=== PATIENT | female | born 1950 | race Caucasian/White ===

== ENCOUNTER 2023-10-18 11:48 | Outpatient (REF) | payer MEDICARE, SELFPAY ==
[2023-10-18 14:45] LABS: Folate > 20.0 ng/mL (> or = 4.0); Vitamin B12 723 pg/mL (200-900)
[2023-10-19 13:29] LABS: Lyme Abs Screen <0.90 index
== END 2023-10-18 11:49 | disposition home or self-care (01) ==
LOC: HO.LAB 11:48
PROVIDERS: PCP Internal Medicine; Visit Provider Psychiatry & Neurology Neurology
DX: G93.40 Encephalopathy, unspecified (principal)
CPT/HCPCS: 36415; 82607; 82746; 86617; 86618

== ENCOUNTER 2023-11-12 10:17 | Outpatient (REF) | payer MEDICARE, SELFPAY ==
--- NOTE | ~2023-11-12 | MR_ITS ---
EXAMINATION: MR BRAIN WITHOUT CONTRAST CLINICAL INFORMATION: Encephalopathy, memory loss COMPARISON: None available. TECHNIQUE: MRI of the brain was obtained using routine sequences without contrast. FINDINGS: There is no reduced diffusion to suggest acute infarct. Small chronic lacunar infarctions in the left cerebellar hemisphere and right basal ganglia. Susceptibility weighted sequence is within normal limits. No mass effect, extra-axial collection, midline shift, or other herniation. Generalized cerebral volume loss with a mild temporoparietal predominance. Scattered periventricular and subcortical T2/FLAIR hyperintense foci are nonspecific but likely represent chronic microvascular ischemic change. Intracranial flow voids are preserved. Ethmoid air cell mucosal thickening. Trace left mastoid fluid. No focal expansile/destructive osseous lesion. MR/MR head/brain wo con IMPRESSION: Generalized cerebral volume loss with a mild temporoparietal predominance. No acute infarction. Small chronic lacunar infarctions in the left cerebellar hemisphere and right basal ganglia.
== END 2023-11-12 10:18 | disposition home or self-care (01) ==
LOC: HO.MRI 10:17
PROVIDERS: PCP Internal Medicine; Visit Provider Psychiatry & Neurology Neurology
DX: G93.40 Encephalopathy, unspecified (principal)
CPT/HCPCS: 70551

== ENCOUNTER 2023-12-10 09:23 | Day surgery (SDC) | payer MEDICARE, SELFPAY ==
--- NOTE | ~2023-12-10 | FL_ITS ---
Fluoroscopic lumbar puncture Indication: Cognitive impairment Risks and benefits and possible complications were discussed with the patient and the consent form was signed. Patient was placed prone on the fluoroscopy table. The back was prepped and draped in routine sterile fashion. Betadine was used as a skin antiseptic. Utilizing fluoroscopic guidance, the L5-S1 level was accessed with a 22 gague quinkie spinal needle and clear CSF fluid obtained. Opening pressure was 9 cm H20 in the left lateral decubitus position. 8 cc of fluid was sent for analysis. The needle was removed without immediate complications. Total fluoroscopy time: 0.3 min FL/FL guided lumbar puncture LP Impression: Fluoroscopic lumbar puncture This procedure was performed by Rosalino Aguirre PA-C and supervised by Dr. Atkins.
[2023-12-10 10:02] LABS: MANUAL DIFF FLAG NO
[2023-12-10 10:05] LABS: Basophils Absolute Auto 0.1 X10*3/uL (0.0-0.2); Basophils Percent Auto 1.3 % (0-2); Eosinophils Absolute Auto 0.2 X10*3/uL (0.0-0.4); Eosinophils Percent Auto 2.8 % (0-4); Hematocrit 45.3 % (37.0-47.0); Imm Gran Abs Auto 0.02 X10*3/uL (0.00-0.03); Imm Gran Pct Auto 0.3 % (0.0-0.4); Lymphocytes Absolute Auto 2.8 X10*3/uL (1.2-4.9); Lymphocytes Percent Auto 35.7 % (20-40); Mean Corpuscular HGB Conc 35.3 g/dl (31.0-35.0); Mean Corpuscular Hemoglobin 31.6 pg (27.0-33.0); Mean Corpuscular Volume 89.3 fL (80.0-98.0); Monocytes Absolute Auto 0.9 X10*3/uL (0.1-1.2); Monocytes Percent Auto 11.1 % (2-11); Neutrophils Absolute Auto 3.9 x10*3/uL (2.0-8.3); Neutrophils Percent Auto 48.8 % (45-73); Platelet Count 361 X10*3/uL (160-400); Red Blood Count 5.07 X10*6/uL (4.20-5.50); Red Cell Distribution Width 13.6 % (11.0-16.0); White Blood Count 7.9 X10*3/uL (4.8-10.8)
[2023-12-10 10:11] LABS: INTERNATIONAL NORM RATIO 0.9 (0.9-1.1); Prothrombin Time 11.3 SEC (11.1-13.3)
[2023-12-10 10:14] LABS: Partial Thromboplastin Time 31.7 SEC (26.0-36.8)
[2023-12-10 10:28] VITALS: BP 154/85; PULSE 96; RESP 18; TEMP 36.6; O2SAT 97; BMI 29.4
[2023-12-10 11:55] VITALS: BP 129/77; PULSE 72; RESP 16; TEMP 36.2; O2SAT 96
[2023-12-10 12:10] VITALS: BP 128/76; PULSE 76; RESP 16; O2SAT 95
[2023-12-10 12:38] VITALS: BP 120/74; PULSE 99; RESP 17; O2SAT 94
[2023-12-10 12:53] LABS: CSF Appearance Clear, Colorless; CSF Tube # 3
[2023-12-10 12:56] VITALS: BP 127/76; PULSE 80; RESP 17; TEMP 36.2; O2SAT 97
[2023-12-10 12:58] LABS: Glucose CSF 60 mg/dL; Total Protein CSF 53.5 mg/dL (15-45)
[2023-12-10 13:33] LABS: Appearance CSF CLEAR; CSF Tube # 1; Color CSF COLORLESS
[2023-12-10 13:34] LABS: Appearance CSF CLEAR; Red Blood Cell CSF 3 MM*3; White Blood Cell CSF 0 MM*3
[2023-12-10 13:35] LABS: CSF Monos 0 %; CSF Tube # 4; Color CSF COLORLESS; Lymphocytes CSF 4 %; Neutrophils CSF 0 %; Red Blood Cell CSF 0 MM*3; White Blood Cell CSF 1 MM*3
[2023-12-10 14:01] LABS: Oligoclonal Serum Yes
[2023-12-13 21:28] LABS: Albumin 4.3 g/dL (3.6-5.1); Albumin, CSF 37.9 mg/dL (8.0-42.0); IgG 564 mg/dL (600-1540); IgG Synthesis Rate -2.1 mg/24 h (-9.9-3.3); IgG, CSF 2.2 mg/dL (0.8-7.7)
[2023-12-14 17:58] LABS: Oligoclonal Banding Present (Absent)
== END 2023-12-10 13:03 | disposition home or self-care (01) ==
PROVIDERS: Physician Assistant Surgical; Radiology Vascular & Interventional Radiology; PCP Internal Medicine; Visit Provider Psychiatry & Neurology Neurology
PROC: 009U3ZZ Drainage of Spinal Canal, Percutaneous Approach (ICD-10-PCS; CPT 62270; principal; 2023-12-10 11:00)
DX: G30.9 Alzheimer's disease, unspecified (principal); F31.9 Bipolar disorder, unspecified; F41.9 Anxiety disorder, unspecified; Z79.899 Other long term (current) drug therapy
CPT/HCPCS: 36415; 62328; 82042; 82945; 83520; 83916; 84157; 85025; 85610; 85730; 87015; 87070; 87205; 89051

== ENCOUNTER → 2023-12-10 11:00 | Outpatient (BNV) | payer MEDICARE, SELFPAY | PROVIDERS: PCP Internal Medicine; Visit Provider Student in an Organized Health Care Education/Training Program | DX: R41.9 Unspecified symptoms and signs involving cognitive functions and awareness (principal) | CPT/HCPCS: 62328 ==

== ENCOUNTER 2023-12-20 11:14 | Outpatient (REF) | payer MEDICARE, SELFPAY ==
[2023-12-20 13:14] LABS: Erythrocyte Sedimentation Rate 2 MM/HR (0-20)
[2023-12-21 07:51] LABS: Syphilis Screen Nonreactive (Nonreactive)
[2023-12-21 08:00] LABS: HIV AB/AG Nonreactive (Nonreactive); HIV Num 1 0.05 S/CO (0.00-0.99)
[2023-12-21 12:29] LABS: Anti DNA DS Antibody <1 IU/mL
[2023-12-24 13:38] LABS: IgA 133 mg/dL (70-320); IgG 624 mg/dL (600-1540); IgM 105 mg/dL (50-300)
== END 2023-12-20 11:15 | disposition home or self-care (01) ==
LOC: HO.LAB 11:14
PROVIDERS: Visit Provider Psychiatry & Neurology Neurology
DX: Z11.4 Encounter for screening for human immunodeficiency virus [HIV] (principal); G30.9 Alzheimer's disease, unspecified
CPT/HCPCS: 36415; 82784; 85652; 86225; 86334; 86780; 87389

== ENCOUNTER 2024-04-02 18:00 | Outpatient (REF) | payer MEDICARE, SELFPAY ==
--- NOTE | ~2024-04-02 | MR_ITS ---
EXAMINATION: MR BRAIN WITHOUT CONTRAST CLINICAL INFORMATION: Alzheimer's encephalopathy COMPARISON: MRI brain on 11/12/2023 TECHNIQUE: MRI of the brain was obtained using routine sequences without contrast. FINDINGS: No acute intracranial hemorrhage or infarct. Sequelae of chronic infarcts in the right basal ganglia and left parietal lobe. Scattered and confluent periventricular and deep white matter T2/FLAIR hyperintensities, nonspecific however commonly seen with small vessel ischemic disease. Diffuse prominence of the sulci with associated ex vacuo dilation of the ventricles compatible with global cerebral atrophy. No midline shift or hydrocephalus. No acute extra-axial fluid collections. The osseous structures are unremarkable. The pituitary gland, pineal gland and remaining midline structures are unremarkable. No orbital pathology. The paranasal sinuses are clear. Left mastoid effusion. MR/MR head/brain wo con IMPRESSION: -No acute intracranial abnormalities. -Global cerebral volume loss and chronic microangiopathy. -Left mastoid effusion.
== END 2024-04-02 18:01 | disposition home or self-care (01) ==
LOC: HO.MRI 18:00
PROVIDERS: PCP Internal Medicine; Visit Provider Psychiatry & Neurology Neurology
DX: G30.9 Alzheimer's disease, unspecified (principal); G93.40 Encephalopathy, unspecified
CPT/HCPCS: 70551

== ENCOUNTER 2024-05-06 14:01 | Outpatient (REF) | payer MEDICARE, SELFPAY ==
--- NOTE | ~2024-05-06 | MR_ITS ---
EXAMINATION: MR BRAIN WITHOUT CONTRAST CLINICAL INFORMATION: No sinus disease COMPARISON: MRI of brain 524 TECHNIQUE: MRI of the brain was obtained using routine sequences without contrast. FINDINGS: Ventricles, sulci and cisterns are dilated. T2 hyperintense lesion is seen in left anterior parietal subcortical white matter. Persistent tiny T2 hyperintense lesion is seen in mid right qiu radiata. No focal brainstem or cerebellar lesions with abnormal signal can be seen. Diffusion weighted images show no abnormal regional decrease in diffusion. Normal flow voids of major intracerebral blood vessels are seen in the visualized portion. The pituitary gland is normal. Optic chiasm is not displaced. Cerebellar tonsils position is normal. MR/MR head/brain wo con IMPRESSION: 1. Unchanged age related cerebral atrophy. 2. Unchanged left anterior parietal subcortical white matter lesions and right mid qiu radiata T2 hyperintense lesion, compatible with ischemic lesions due to microangiopathy. 3. No acute cerebral infarction is seen. 4. No evidence of space occupying mass lesion could be found. 5. No evidence of intracranial hemorrhage.
== END 2024-05-06 14:02 | disposition home or self-care (01) ==
LOC: HO.MRI 14:01
PROVIDERS: PCP Internal Medicine; Visit Provider Psychiatry & Neurology Neurology
DX: G30.9 Alzheimer's disease, unspecified (principal)
CPT/HCPCS: 70551

== ENCOUNTER 2024-07-07 14:56 | Outpatient (AMB) | payer MEDICARE, SELFPAY ==
[2024-07-07 14:57] VITALS: BP 130/78; PULSE 100; O2SAT 97; BMI 31.9
--- NOTE | 2024-07-07 14:57 | A.OFFPC_ITS ---
Vital Signs 07/07/24 14:57 Height 5 ft 4 in Weight 186 lb BMI 31.9 BP 130/78 Blood Pressure Location Lt brachial Position Sitting Pulse 100 Pulse Source Pulse Oximeter Pulse Oximetry (%) 97 Oxygen Delivery Method Room Air Intake Visit Reasons: new patient Live In Caregiver Required: No Allergies No Known Allergies Allergy (Verified 07/07/24 15:18) Medication List - Last Reconciled 07/07/24 by Jenifer Sevilla PA-C amlodipine 10 mg PO BEDTIME atorvastatin 40 mg PO DAILY bupropion HCl SR 150 mg PO QAM desvenlafaxine succinate ER 100 mg PO QAM desvenlafaxine succinate ER 25 mg PO DAILY folic acid 1 mg PO DAILY lamotrigine 150 mg PO BID lorazepam 1 mg PO BEDTIME Tobacco use date assessed: 07/07/24 Fall risk assessment: No Falls in past year Last assessed Fall Risk: 07/07/24 Dental Screening Dental Screen Date: 07/07/24 Did you have a dental visit in the last 12 months?: No Did you have a dental problem in the last 6 months where you did not have access to dental care?: No HPI new patient HPI Details 74-year-old female coming to the office for the 1st time. In review of the notes patient follows with [facility] for Alzheimer's disease and receives Leqembi infusions. Previously she followed with [facility] with Dr. Bernardo as a primary care and is here for transfer of care. She was recently diagnosed with Alzheimer's disease and referred to Neurology at that time. She is concerned about bilateral lower extremity swelling which has been persistent for several months and improves with elevation. She also has not increased anxiety and depression following her diagnosis of Alzheimer's disease and follows with a psychiatrist. [facility] Medical History (Updated 07/07/24 @ 16:04 by Jenifer Sevilla PA-C) History of depression History of anxiety Hypercholesteremia COPD (chronic obstructive pulmonary disease) Hypertension Surgical History (Updated 07/07/24 @ 15:21 by Jenifer Sevilla PA-C) H/O spinal fusion History of back surgery Hx of breast augmentation Hx of colonoscopy Hx of hysterectomy Family History (Updated 07/07/24 @ 15:24 by Jenifer Sevilla PA-C) Father Lung cancer Mother Brain aneurysm Social History Housing: House Patient Tobacco Use Status: Former Tobacco user e-Cigarette/Vaping Use: Currently Using service: No Current occupational status: retired Cognitive needs: No Hearing needs: No Vision needs: No Female Reproductive History Menstrual History of abnormal mammogram: No Questionnaire PHQ-9 Over the last 2 weeks, how often have you been bothered by any of the following problems? 1. Little interest or pleasure in doing things: several days 2. Feeling down, depressed, or hopeless: several days 3. Trouble falling or staying asleep, or sleeping too much: several days 4. Feeling tired or having little energy: several days 5. Poor appetite or overeating: more than half the days 6. Feeling bad about yourself - or that you are a failure or have let yourself or your family down: several days 7. Trouble concentrating on things, such as reading the newspaper or watching television: not at all 8. Moving or speaking so slowly that other people could have noticed. Or the opposite - being so fidgety or restless that you have been moving around a lot more than usual: not at all 9. Thoughts that you would be better off or of hurting yourself in some way: not at all Total score: 7 Depression Screening Interpretation: Positive Depression Screening Follow-up: Existing condition and In treatment Depression Screening Done: Yes 15499 - PHQ-9 Billing: Yes Source: Developed by Drs. Dionicio Alvarez, Lucía Rosado, Jairon Felix and colleagues, with an educational saulo from [employer]. Thrive Questionnaire Date Thrive assessed: 07/07/24 I am a: Patient What is your living situation today?: I have a steady place to live Within the past 12 months, did the food you bought not last and you didn't have the money to get more?: Never true Within the past 12 months, did you worry whether your food would run out before you got money to buy more?: Never true Do you have trouble paying for medicines?: No Do you have trouble getting transportation to medical appointments?: No Do you have trouble paying your heating and electricity bill?: No Do you have trouble taking care of your child, family member or friend?: No Do you have trouble with day-to-day activities such as bathing, preparing meals, shopping, managing finances, etc.?: No Are you currently unemployed and looking for a job?: No Are you interested in more education?: No Please select the resources that you would like help with: None THRIVE Score: 0 AUDIT C Alcohol Use Questionnaire (AUDIT-C) 1. How often do you have a drink containing alcohol?: 2-4 times a month 2. How many drinks containing alcohol do you have on a typical day when you are drinking?: 1 or 2 3. How often do you have six or more drinks on one occasion?: Never Total Score: 2 DOMINIC-7 AMB Questionnaire DOMINIC-7 Date DOMINIC - 7 assessed: 07/07/24 Feeling nervous, anxious, or on edge: 1 = Several days Not being able to stop or control worryin = More than half the days Worrying too much about different things: 2 = More than half the days Trouble relaxin = Several days Being so restless that it is hard to sit still: 0 = Not at all Becoming easily annoyed or irritable: 1 = Several days Feeling afraid as if something awful might happen: 0 = Not at all Total DOMINIC-7 score (0-4 normal; 5-9 mild; 10-14 moderate; 15-21 severe): 7 Source: Developed by Drs. Dionicio Alvarez, Lucía Rosado, Jairon Felix and colleagues, with an educational saulo from [employer]. DOMINIC-7 Assessment Billing DOMINIC-7 Assessment Tool: DOMINIC-7 Assessment 60322 Review of Systems Const Denies body aches, Denies fatigue, Denies fever(s), Denies frequent falls, Denies headache(s) and Denies weakness Eyes Reports no additional complaints and Denies change in vision ENT Denies dysphagia, Denies dizziness, Denies facial pain, Denies headache(s), Denies nasal congestion and Denies odynophagia Card Denies chest pain, Denies syncope, Denies irregular heart rhythm, Reports leg edema, Denies lightheadedness and Denies dyspnea Resp Denies cough and Denies dyspnea GI Denies constipation, Denies dysphagia, Denies dyspepsia, Denies diarrhea, Denies nausea, Denies odynophagia and Denies vomiting Denies urinary frequency, Denies dysuria, Denies urinary hesitancy and Denies urinary urgency Musc Denies back pain and Denies myalgias Skin/Breast Reports system reviewed and no additional complaints, except as documented Neuro Denies dizziness, Denies syncope, Denies frequent falls, Denies headache(s) and Denies weakness Psych Reports no additional complaints Endo Denies fatigue Physical exam (Primary Care) Vital Signs: Oxygen Delivery Method Room Air 07/07/24 14:57 Tobacco/Smoking Status: Tobacco use Status Tobacco use date assessed 07/07/24 07/07/24 14:58 Patient Tobacco Use Status Former Tobacco user 07/07/24 14:58 Are you ready to quit: No PHQ-9: PHQ-9 Score PHQ-9: Total score 7 07/07/24 14:58 Depression Screening Interpretation: Positive Depression Screening Follow-up: Existing condition and In treatment Thrive Assessment: Date of Thrive Assessment Date Thrive assessed 07/07/24 07/07/24 14:58 Advance Care Planning discussion: Completed/Scanned Date of discussion: 07/07/24 Who was present: Patient Forms completed: MOLST Time spent: 1-15 minutes, not on file Actual minutes spent: 5 Did not discuss due to Cultural/Spiritual beliefs: No Const General: cooperative, healthy appearing, comfortable and no acute distress Orientation/consciousness: patient oriented x3 HENMT Head: Yes normocephalic Ears: hearing grossly normal bilaterally General nose exam: Normal external nose present Eyes General: appearance normal, both eyes and all related structures Conjunctivae: conjunctivae normal Neck Neck: Yes full ROM and Yes no lymphadenopathy Resp Effort & Inspection: normal respiratory effort Auscultation: clear to auscultation bilaterally, no crackles, no rales, no rhonchi and no wheezes Cardio Rate: regular rate Rhythm: regular rhythm Skin General skin exam: no rashes or lesions noted Neuro General: patient oriented x3 Gait exam (Neuro): Normal gait present Extrem Other: Bilateral 1+ pitting edema of lower legs and ankles without overlying skin changes or erythema General: Yes normal to inspection, Yes full ROM and Yes edema Psych Affect: normal affect Attitude: cooperative Insight: Good insight present (Psych) Judgement: Good judgement present (Psych) Assessment and Plan Assessment & Plan (1) Colon cancer screening: Code(s): Z12.11 - Encounter for screening for malignant neoplasm of colon Plan: Patient is not up-to-date on her colon cancer screening in his last had a colo noscopy over 10 years ago. Referral placed for GI today. (2) Hypertension: Code(s): I10 - Essential (primary) hypertension Plan: Continue on amlodipine. Avoid salt intake and encourage healthy diet and regular exercise. (3) COPD (chronic obstructive pulmonary disease): Code(s): J44.9 - Chronic obstructive pulmonary disease, unspecified Plan: Patient was previously diagnosed with COPD and uses a nebulizer as needed. (4) History of depression: Code(s): Z86.59 - Personal history of other mental and behavioral disorders Plan: Patient follows with a psychiatrist who prescribes her psych medications. Denies the need for a counselor at this time. (5) History of anxiety: Code(s): Z86.59 - Personal history of other mental and behavioral disorders Plan: Continue on current med regimen and continue to follow with psychiatrist. (6) Hypercholesteremia: Code(s): E78.00 - Pure hypercholesterolemia, unspecified Plan: Ordered for updated blood work. Avoid foods that are high in cholesterol such as red meat, fried foods, eggs and baked goods. Triglyceride goal of less than 150 and LDL goal of less than 100. Continue on atorvastatin (7) Swelling of both lower extremities: Code(s): M79.89 - Other specified soft tissue disorders Plan: Patient has edema of bilateral lower extremities that improves with elevation. Discussed with patient lifestyle modifications such as exercise, leg elevation, and compression stockings for symptoms. Discussed this may be a side effect of amlodipine and can consider decreasing the dose or changing medications if symptoms persist or worsen. (8) Alzheimer dementia: Code(s): G30.9 - Alzheimer's disease, unspecified; F02.80 - Dementia in other diseases classified elsewhere, unspecified severity, without behavioral disturbance, psychotic disturbance, mood disturbance, and anxiety Plan: Continue to follow up with Neurology and continue on Leqembi infusions. Repeat MRI in the coming months. Plan Patient is not up to date with recommended routine screenings for her age. Mammogram and colonoscopy referrals sent today along with updated bloodwork. This note was constructed using voice recognition software. While every effort has been made to ensure accuracy and studio operator, still areas may have been included sometimes these areas may affect the content or meeting of the given symptoms. Total time spent caring for the patient today was 30 minutes. This includes time spent before the visit reviewing the chart, time spent during the visit, and time spent after the visit and documentation. Orders: Orders MM tomosynthesis screening BI Today Z12.31 - Encounter for screening mammogram for malignant neoplasm of breast Complete Blood Count Auto Diff Today Z00.00 - Encounter for general adult medical examination without abnormal findings Comprehensive Met. Panel Today Z00.00 - Encounter for general adult medical examination without abnormal findings Lipid Panel Today Z00.00 - Encounter for general adult medical examination without abnormal findings Free T4 (Free Thyroxine) Today Z00.00 - Encounter for general adult medical examination without abnormal findings Vitamin B12 and Folate Today Z00.00 - Encounter for general adult medical examination without abnormal findings Microalbumin, Random (w Creat) Today Z00.00 - Encounter for general adult medi tresa examination without abnormal findings TSH reflex Free T4 Today Z00.00 - Encounter for general adult medical examination without abnormal findings Vitamin D 25-OH (D2 and D3) Today Z00.00 - Encounter for general adult medical examination without abnormal findings Referrals Gastroenterology Referral Z12.11 - Encounter for screening for malignant neoplasm of colon Coding Level of Care Code Est Pt Level 4 (77732) Diagnoses Colon cancer screening Z12.11 Hypertension I10 COPD (chronic obstructive pulmonary disease) J44.9 History of depression Z86.59 History of anxiety Z86.59 Hypercholesteremia E78.00 Swelling of both lower extremities M79.89 Alzheimer dementia G30.9; F02.80 Additional Codes DOMINIC-7 Assessment Billing - DOMINIC-7 Assessment Tool: DOMINIC-7 Assessment 50255 ([id number]) Vital Signs *Quality* - Advance Care Planning discussion: Completed/Scanned ([id number]) Vital Signs *Quality* - Time spent: 1-15 minutes, not on file ([id number])
== END 2024-07-07 15:53 | disposition home or self-care (01) ==
DX: J44.9 Chronic obstructive pulmonary disease, unspecified (principal); G30.9 Alzheimer's disease, unspecified; F02.80 Dementia in other diseases classified elsewhere, unspecified severity, without behavioral disturbance, psychotic disturbance, mood disturbance, and anxiety; Z00.00 Encounter for general adult medical examination without abnormal findings; Z12.11 Encounter for screening for malignant neoplasm of colon; I10 Essential (primary) hypertension; Z86.59 Personal history of other mental and behavioral disorders; E78.00 Pure hypercholesterolemia, unspecified; M79.89 Other specified soft tissue disorders
CPT/HCPCS: 1123F; 99214

== ENCOUNTER 2024-08-04 13:26 | Outpatient (REF) | payer MEDICARE, SELFPAY ==
--- NOTE | ~2024-08-04 | MM_ITS ---
EXAMINATION: MM SCREENING DIGITAL BREAST TOMOSYNTHESIS, BILATERAL CLINICAL INFORMATION: Screening. Asymptomatic. COMPARISON: Mammography: Comparison is made with relevant avialable priors. TECHNIQUE: Digital mammography is performed in craniocaudal and mediolateral oblique views along with computer-aided detection (CAD). Digital breast tomosynthesis is performed in implant-displaced craniocaudal and implant-displaced mediolateral oblique views along with computer-aided detection (CAD). FINDINGS: The breasts are heterogeneously dense, which may obscure small masses (ACR BI-RADS breast composition Category c). Bilateral retropectoral implants are stable appearing. Right marker clip. Bilateral circumscribed oval masses which wax and wane consistent with benign fibrocystic changes. There are no significant masses, abnormal calcifications, or other abnormalities. MM/MM tomosynthesis screen imp BI IMPRESSION: There are no significant changes from prior study. ASSESSMENT: BI-RADS BI-RADS 2 - Benign Findings RECOMMENDATION: Routine annual mammography screening. 1 year F/U This patient's information was entered into a reminder system with a target due date for their next mammogram. Electronically signed by: Sujatha Naranjo DO 08/15/2024 10:09 AM EDT
== END 2024-08-04 13:27 | disposition home or self-care (01) ==
LOC: HO.MAMMO 13:26
DX: Z12.31 Encounter for screening mammogram for malignant neoplasm of breast (principal)
CPT/HCPCS: 77063; 77067

== ENCOUNTER → 2024-08-04 13:45 | Outpatient (BNV) | payer MEDICARE, SELFPAY | PROVIDERS: Visit Provider Internal Medicine | DX: Z12.31 Encounter for screening mammogram for malignant neoplasm of breast (principal) | CPT/HCPCS: 77063; 77067 ==

== ENCOUNTER 2024-08-20 13:46 | Outpatient (REF) | payer MEDICARE, SELFPAY ==
[2024-08-20 15:32] LABS: Alanine Aminotransferase 40 U/L (0-31); Albumin Level 4.5 g/dL (3.5-5.0); Alkaline Phosphatase 106 U/L (39-117); Aspartate Amino Transferase 27 U/L (5-31); Bilirubin Direct 0.1 mg/dL (0.0-0.5); Bilirubin Total 0.4 mg/dL (0.0-1.0); Total Protein 6.9 g/dL (6.5-8.0)
== END 2024-08-20 13:47 | disposition home or self-care (01) ==
LOC: HO.LAB 13:46
PROVIDERS: Visit Provider Psychiatry & Neurology Neurology
DX: G30.9 Alzheimer's disease, unspecified (principal)
CPT/HCPCS: 36415; 80076

== ENCOUNTER 2024-09-08 11:27 | Outpatient (AMB) | payer MEDICARE, SELFPAY ==
--- NOTE | 2024-09-08 11:32 | A.OFFPC_ITS ---
Intake Visit Reasons: AWV [id number] Allergies No Known Allergies Allergy (Verified 07/07/24 15:18) Tobacco use date assessed: 07/07/24 Dental Screening Dental Screen Date: 07/07/24 [facility] Medical History (Updated 07/07/24 @ 16:04 by Jenifer Sevilla PA-C) History of depression History of anxiety Hypercholesteremia COPD (chronic obstructive pulmonary disease) Hypertension Surgical History (Updated 07/07/24 @ 15:21 by Jenifer Sevilla PA-C) H/O spinal fusion History of back surgery Hx of breast augmentation Hx of colonoscopy Hx of hysterectomy Family History (Updated 07/07/24 @ 15:25 by Jenifer Sevilla PA-C) Father Lung cancer Mother Brain aneurysm Social History Housing: House Patient Tobacco Use Status: Former Tobacco user e-Cigarette/Vaping Use: Currently Using service: No Current occupational status: retired Cognitive needs: No Hearing needs: No Vision needs: No Questionnaire Thrive Questionnaire Date Thrive assessed: 07/07/24 I am a: Patient What is your living situation today?: I have a steady place to live Within the past 12 months, did the food you bought not last and you didn't have the money to get more?: Never true Within the past 12 months, did you worry whether your food would run out before you got money to buy more?: Never true Do you have trouble paying for medicines?: No Do you have trouble getting transportation to medical appointments?: No Do you have trouble paying your heating and electricity bill?: No Do you have trouble taking care of your child, family member or friend?: No Do you have trouble with day-to-day activities such as bathing, preparing meals, shopping, managing finances, etc.?: No Are you currently unemployed and looking for a job?: No Are you interested in more education?: No Please select the resources that you would like help with: None Currently or been in a relationship where the following occur: No concerns reported THRIVE Score: 0 DOMINIC-7 AMB Questionnaire DOMINIC-7 Date DOMINIC - 7 assessed: 07/07/24 Source: Developed by Drs. Dionicio Alvarez, Lucía Rosado, Jairon Felix and colleagues, with an educational saulo from [employer]. Physical exam (Primary Care) Tobacco/Smoking Status: Tobacco use Status Tobacco use date assessed 07/07/24 07/07/24 14:58 Patient Tobacco Use Status Former Tobacco user 07/07/24 14:58 e-Cigarette/Vaping Use Currently Using 07/07/24 15:22 Thrive Assessment: Date of Thrive Assessment Date Thrive assessed 07/07/24 07/07/24 14:58 Currently or been in a relationship where the following occur: No concerns reported Coding
--- NOTE | 2024-09-08 11:34 | A.OFFVIS_ITS ---
Intake Vital Signs 09/08/24 11:35 Height 5 ft 4 in Weight 190 lb BMI 32.6 BP 114/70 Blood Pressure Location Lt brachial Position Sitting Pulse 106 H Pulse Source Pulse Oximeter Pulse Oximetry (%) 96 Oxygen Delivery Method Room Air Intake Visit Reasons: AWV [id number] Intake Note: Patient is here for an Annual Wellness Visit. Allergies No Known Allergies Allergy (Verified 09/08/24 11:51) Medication List - Last Reconciled 09/08/24 by Jenifer Sevilla PA-C albuterol sulfate 90 mcg/actuation (Ventolin HFA) 1 inh inhalation QID PRN amlodipine 10 mg PO BEDTIME atorvastatin 40 mg PO DAILY bupropion HCl SR 150 mg PO QAM desvenlafaxine succinate ER 100 mg PO QAM desvenlafaxine succinate ER 25 mg PO DAILY folic acid 1 mg PO DAILY lamotrigine 150 mg PO BID lorazepam 1 mg PO BEDTIME HPI AWV G0438 HPI Details 74-year-old female with past medical his tory of hypercholesterolemia, anxiety, depression, COPD, hypertension, Alzheimer dementia last seen June 1224 coming in for annual wellness exam. In review of the notes, patient completed mammogram 08/15/2024 BI-RADS 2 follow up in 1 year. Patient states she is feeling generally well and has no acute concerns today. She does mentioned that she does have chronic leg swelling that will come on from any prolonged standing. She states sometimes the swelling we will occur after standing for 5-10 minutes. The swelling is bothersome for her and causes her ankles and feet to ache. [facility] Medical History History of depression History of anxiety Hypercholesteremia COPD (chronic obstructive pulmonary disease) Hypertension Surgical History H/O spinal fusion History of back surgery Hx of breast augmentation Hx of colonoscopy Hx of hysterectomy Family History Father Lung cancer Mother Brain aneurysm Social History Housing: House Patient Tobacco Use Status: Former Tobacco user e-Cigarette/Vaping Use: Currently Using service: No Current occupational status: retired Cognitive needs: No Hearing needs: No Vision needs: No Questionnaire Medicare Wellness Checkup [age] What gender do you identify with?: female During the past 4 weeks, how much have you been bothered by emotional problems such as feeling anxious, depressed, irritable, sad or downhearted, and blue?: moderately During the past 4 weeks, has your physical & emotional health limited your social activities with family, friends, neighbors, or groups?: moderately During the past 4 weeks, how much bodily pain have you generally had?: mild pain During the past 4 weeks, was someone available to help you if you needed & wanted help?: yes, as much as I wanted During the past 4 weeks, what was the hardest physical activity you could do for at least 2 minutes?: light Can you get to places out of walking distance without help? (For eg., can you travel alone on buses, taxis or drive your car?): No Can you go shopping for groceries or clothes without someone's help?: No Can you prepare your own meals?: Yes Can you do your housework without help?: Yes Because of any health problems, do you need the help of another person with your personal care needs such as eating, bathing, dressing or getting around the house?: No Can you handle your own money without help?: Yes During the past 4 weeks, how would you rate your health in general?: fair During the past 4 weeks how have things been going for you?: good & bad parts about equal Are you having difficulties driving your car?: not applicable, I don't use a car Do you always fasten your seat belt when you are in a car?: yes, usually During past 4 weeks, have you been bothered by the following: never: Sexual problems?, Trouble eating well?, Teeth or denture problems? and Problems using the telephone?, sometimes: Falling or dizzy when standing up and always: Tiredness or fatigue? Have you fallen 2 or more times in the past year?: No Are you afraid of falling?: Yes Are you a smoker?: no During the past 4 weeks, how many drinks of wine, beer, or other alcoholic beverages did you have?: 1 drink or less per week Do you exercise for about 20 minutes 3 or more times a week?: no, I usually do not exercise this much Have you been given information to help with the following?: yes: Hazards in your house that might hurt you? and yes: Keeping track of your medications? How often do you have trouble taking medicines the way you have been told to take them?: I always take medicine as prescribed How confident are you that you can control & manage most of your health problems?: somewhat confident What is your race?: White Activity of Daily Living Bathing - sponge bath, tub bath or shower: receives no assistance (gets in/out by self, if usual bathing means Dressing - getting clothes from closets & drawers, including inner/outer garments & fasteners.: gets clothes & gets completely dressed without help Toileting - going to the 'toilet room' for urine/bowel elimination & cleaning self/arranging clothes: goes to toilet room, cleans self, arranges clothes w ithout help Transfer: moves in & out of bed and chair without help (may use support object) Continence: controls urination/bowel movements completely by self Feeding: feeds self without help Total Score: 0 Information obtained from: patient Using telephone: independent Traveling: needs assistance Shopping: independent Preparing meals: independent Housework: independent Taking medicine: independent Managing money: independent PHQ-9 Over the last 2 weeks, how often have you been bothered by any of the following problems? 1. Little interest or pleasure in doing things: several days 2. Feeling down, depressed, or hopeless: several days 3. Trouble falling or staying asleep, or sleeping too much: not at all 4. Feeling tired or having little energy: several days 5. Poor appetite or overeating: several days 6. Feeling bad about yourself - or that you are a failure or have let yourself or your family down: not at all 7. Trouble concentrating on things, such as reading the newspaper or watching television: not at all 8. Moving or speaking so slowly that other people could have noticed. Or the opposite - being so fidgety or restless that you have been moving around a lot more than usual: not at all 9. Thoughts that you would be better off or of hurting yourself in some way: not at all Total score: 4 Depression Screening Interpretation: Positive Depression Screening Follow-up: Existing condition and In treatment Depression Screening Done: Yes 08256 - PHQ-9 Billing: Yes Source: Developed by Drs. Dionicio Alvarez, Lucía Rosado, Jairon Felix and colleagues, with an educational saulo from [employer]. Review of Systems Const Denies body aches, Denies fatigue, Denies fever(s), Denies frequent falls, Denies headache(s) and Denies weakness Eyes Reports no additional complaints and Denies change in vision ENT Denies dysphagia, Denies dizziness, Denies facial pain, Denies headache(s), Denies nasal congestion and Denies odynophagia Card Denies chest pain, Denies syncope, Denies irregular heart rhythm, Reports leg edema (occasional), Denies lightheadedness, Denies dyspnea and Reports dyspnea on exertion Resp Denies cough, Denies dyspnea and Reports dyspnea on exertion GI Denies abdominal pain, Denies constipation, Denies dysphagia, Denies dyspepsia, Denies diarrhea, Denies nausea, Denies odynophagia and Denies vomiting Denies urinary frequency, Denies dysuria, Denies urinary hesitancy and Denies urinary urgency Musc Details: Bilateral ankle and foot swelling Denies back pain and Denies myalgias Skin/Breast Reports system reviewed and no additional complaints, except as documented Neuro Denies dizziness, Denies syncope, Denies frequent falls, Denies headache(s) and Denies weakness Psych Reports no additional complaints Endo Denies fatigue Physical Exam Vital Signs: Oxygen Delivery Method Room Air 09/08/24 11:35 BMI result Body Mass Index 32.6 Const General: cooperative, healthy appearing, comfortable and no acute distress Orientation/consciousness: patient oriented x3 HEENT Head: Yes normocephalic Ears: hearing grossly normal bilaterally, external ears normal, TM's normal bilaterally and EAC's normal General nose exam: Normal external nose present Face and sinus: Yes normal facial exam and Yes sinuses nontender Mouth: Normal oral and palatal mucosa present and tongue normal Throat: Yes posterior oropharynx normal Eyes General: appearance normal, both eyes and all related structures Conjunctivae: conjunctivae normal Pupils: Equal, round and reactive pupils present EOM: EOMs intact bilaterally and No Nystagmus present Neck Neck: Yes normal visual inspection, Yes full ROM and Yes no lymphadenopathy Chest Chest palpation & inspection: normal inspection of the chest Resp Effort & Inspection: normal respiratory effort Auscultation: clear to auscultation bilaterally, no crackles, no rales, no rhonchi, no wheezes and breath sounds present Cardio Rate: regular rate Rhythm: regular rhythm Peripheral pulses: radial pulses present and dorsalis pedis present GI Inspection: Yes normal to inspection and No Abdominal wall edema Palpation (GI): Soft to palpation, not firm and nontender Auscultation: normal bowel sounds Rectal Exam - Female: deferred General: Yes no CVA tenderness Back/Spine/Pelvis Back: no CVA tenderness Skin General skin exam: no rashes or lesions noted Neuro General: patient oriented x3 Cranial nerves: Yes Equal, round and reactive pupils present, Yes Midline tongue present, Yes Ability to bilaterally elevate shoulders present and No Nystagmus present Gait exam (Neuro): Normal gait present Extrem Other: 2+ pitting edema of bilateral ankles without overlying redness or warmth. Intact strength, sensation and pulses in bilateral lower extremities. No calf swelling, redness or warmth General: Yes normal to inspection, Yes full ROM, Yes no pedal edema and No edema Psych Speech and movement: Normal speech and movement present Affect: normal affect Insight: Good insight present (Psych) Judgement: Good judgement present (Psych) Assessment & Plan Assessment & Plan (1) Alzheimer dementia: Code(s): G30.9 - Alzheimer's disease, unspecified; F02.80 - Dementia in other diseases classified elsewhere, unspecified severity, without behavioral disturbance, psychotic disturbance, mood disturbance, and anxiety Plan: Continue to follow up with Neurology and continue on current medication regimen (2) Hypertension: Code(s): I10 - Essential (primary) hypertension Plan: Patient having bilateral ankle swelling that is bothersome. May be related to high dose of amlodipine. We will decrease amlodipine to 5 mg at this time and advised patient to continue to monitor her blood pressures at home. If blood pressures rise above 140/90 to reach out to the office otherwise follow up in 6 weeks for repeat evaluation. Avoid salt intake and encourage healthy diet and regular exercise. If blood pressure remains elevated can consider adding hydrochlorothiazide to medication regimen. (3) COPD (chronic obstructive pulmonary disease): Code(s): J44.9 - Chronic obstructive pulmonary disease, unspecified Plan: Stable on current medication regimen. Continue to avoid triggers such as smoking and allergens. (4) History of depression: Code(s): Z86.59 - Personal history of other mental and behavioral disorders Plan: Continue on current medication regimen. Declines a counselor at this time (5) History of anxiety: Code(s): Z86.59 - Personal history of other mental and behavioral disorders Plan: Continue on current medication regimen. Declines a counselor at this time (6) Hypercholesteremia: Code(s): E78.00 - Pure hypercholesterolemia, unspecified Plan: Avoid foods that are high in cholesterol such as red meat, fried foods, eggs and baked goods. Triglyceride goal of less than 150 and LDL goal of less than 100. Continue on atorvastatin 40 mg (7) Medicare annual wellness visit, initial: Code(s): Z00.00 - Encounter for general adult medical examination without abnormal findings Plan: Patient is up-to-date on all recommended routine screenings and vaccinations for her age. Colonoscopy screening scheduled for 10/2024 and mammogram completed. Ordered for updated blood work. [place] of care was reviewed with patient patient was provided with a written screening schedule. Healthcare proxy/ MOLST forms were reviewed with patient patient advised to bring completed forms to office to be scanned to chart Plan This note was constructed using voice recognition software. While every effort has been made to ensure accuracy and surgical first assistant, still areas may have been included sometimes these areas may affect the content or meeting of the given symptoms. Total time spent caring for the patient today was 30 minutes. This includes time spent before the visit reviewing the chart, time spent during the visit, and time spent after the visit and documentation. Medications: New amlodipine 5 mg PO DAILY 30 tabs 1RF Discontinued amlodipine Discontinued Reason: Patient no longer taking 10 mg PO BEDTIME 90 tabs 0RF Quality Reporting (2019) Depression/Bipolar (159/160/161/177) PHQ-9: Total score: 4 Coding Level of Care Code Medicare Subsequent (G0439) Est Pt Level 3 (34284) Diagnoses Alzheimer dementia G30.9; F02.80 Hypertension I10 COPD (chronic obstructive pulmonary disease) J44.9 History of depression Z86.59 History of anxiety Z86.59 Hypercholesteremia E78.00 Medicare annual wellness visit, initial Z00.00 Additional Codes PHQ-9 - 01476 - PHQ-9 Billing: Yes ([id number])
[2024-09-08 11:35] VITALS: BP 114/70; PULSE 106; O2SAT 96; BMI 32.6
== END 2024-09-08 12:16 | disposition home or self-care (01) ==
DX: Z00.00 Encounter for general adult medical examination without abnormal findings (principal); J44.9 Chronic obstructive pulmonary disease, unspecified; G30.9 Alzheimer's disease, unspecified; F02.80 Dementia in other diseases classified elsewhere, unspecified severity, without behavioral disturbance, psychotic disturbance, mood disturbance, and anxiety; I10 Essential (primary) hypertension; Z86.59 Personal history of other mental and behavioral disorders; E78.00 Pure hypercholesterolemia, unspecified

== ENCOUNTER → 2024-09-08 11:27 | Outpatient (BNVA) | payer MEDICARE, SELFPAY | DX: Z00.00 Encounter for general adult medical examination without abnormal findings (principal); G30.9 Alzheimer's disease, unspecified; F02.80 Dementia in other diseases classified elsewhere, unspecified severity, without behavioral disturbance, psychotic disturbance, mood disturbance, and anxiety; I10 Essential (primary) hypertension; J44.9 Chronic obstructive pulmonary disease, unspecified; E78.00 Pure hypercholesterolemia, unspecified; Z86.59 Personal history of other mental and behavioral disorders | CPT/HCPCS: 96127; 99212 ==

== ENCOUNTER 2024-10-06 13:19 | Outpatient (AMB) | payer MEDICARE, SELFPAY ==
[2024-10-06 13:21] VITALS: BP 124/77; PULSE 95; O2SAT 96; BMI 32.4
--- NOTE | 2024-10-06 13:21 | A.OFFVIS_ITS ---
Vital Signs 10/06/24 13:21 Height 5 ft 4 in Weight 189 lb BMI 32.4 BP 124/77 Blood Pressure Location Lt brachial Position Sitting Pulse 95 Pulse Source Doppler Pulse Oximetry (%) 96 Oxygen Delivery Method Room Air Intake Visit Reasons: COPD Allergies No Known Allergies Allergy (Verified 09/08/24 11:51) HPI Comments Details: The patient is here for pulmonary evaluation. The patient is year woman with a known history of COPD in addition to underlying pulmonary nodules here to establish care. The patient states that she was tobacco dependent until about 12-15 years ago when she quit altogether. She has been smoke-free since then. She was then diagnosed with COPD. She was being evaluated by [place] [facility]. She did undergo pulmonary function studies and she was given a rescue inhaler. She does have a Ventolin inhaler that she uses as needed. But typically less than 2 times a week. She has never been on a maintenance inhaler. Respiratory cano she is doing okay she denies any respiratory limitations. She did undergo CT scan of the chest sometime 06/17/2023 and this was at [place]. I did review t he report. It appears that she has to pulmonary nodules 1 that is subsolid nature measuring 4 mm and 1 that is 2 mm in size. The patient also carries a significant past medical history where her father of lung cancer in his mid 50s. Therefore, it will be very important to follow-up with a repeat CT scan to make sure those pulmonary nodules have not worsened. As far as respiratory complaints she denies any significant coughing or shortness breath sometimes she has back discomfort but is difficult to say if is from her lungs on her back because she has had significant back issues. In addition to that she is getting a new infusion for her relatively new diagnosis of Alzheimer's dementia. [facility] Medical History (Updated 10/06/24 @ 21:40 by Will Lopez MD) Pulmonary nodules History of depression History of anxiety Hypercholesteremia COPD (chronic obstructive pulmonary disease) Hypertension Surgical History H/O spinal fusion History of back surgery Hx of breast augmentation Hx of colonoscopy Hx of hysterectomy Family History Father Lung cancer Mother Brain aneurysm Social History Housing: House Patient Tobacco Use Status: Former Tobacco user e-Cigarette/Vaping Use: Currently Using service: No Current occupational status: retired Cognitive needs: No Hearing needs: No Vision needs: No Review of Systems Const Denies body aches, Denies fatigue, Denies fever(s), Denies frequent falls and Denies weakness Eyes Reports no additional complaints and Denies change in vision ENT Denies nasal congestion Card Denies chest pain Resp Reports cough GI Denies abdominal pain, Denies constipation, Denies dyspepsia, Denies diarrhea, Denies nausea and Denies vomiting Musc Details: Bilateral ankle and foot swelling Denies back pain Skin/Breast Reports system reviewed and no additional complaints, except as documented Neuro Denies frequent falls and Denies weakness Psych Reports no additional complaints Endo Denies fatigue Physical Exam Vital Signs: Last Vital Signs Pulse 95 10/06/24 13:21 BP 124/77 10/06/24 13:21 Pulse Ox 96 10/06/24 13:21 Oxygen Delivery Method Room Air 10/06/24 13:21 BMI result Body Mass Index 32.4 Resp Effort & Inspection: normal respiratory effort Auscultation: clear to auscultation bilaterally and no wheezes Skin General skin exam: no rashes or lesions noted Extrem General: Yes no clubbing, cyanosis or edema Assessment & Plan Assessment & Plan (1) COPD (chronic obstructive pulmonary disease): Code(s): J44.9 - Chronic obstructive pulmonary disease, unspecified Category: Medical Qualifiers: COPD type: chronic bronchitis Chronic bronchitis type: simple Qualified Code(s): J41.0 - Simple chronic bronchitis (2) Pulmonary nodules: Code(s): R91.8 - Other nonspecific abnormal finding of lung field Category: Medical Plan CECY as needed CT chest to follow up pulmonary nodules noted on CT chest from [place] 05/2023 measuring 2-4 mm. Father dies of lung cancer F/U 6 months Orders: Orders CT chest wo IV con Today R91.8 - Other nonspecific abnormal finding of lung field Coding Level of Care Code New Pt Level 4 (97284) Diagnoses Simple chronic bronchitis J41.0 COPD type: chronic bronchitis Chronic bronchitis type: simple Pulmonary nodules R91.8 Time Spent (min) 30
== END 2024-10-06 13:44 | disposition home or self-care (01) ==
PROVIDERS: Visit Provider Hospitalist
DX: J41.0 Simple chronic bronchitis (principal); R91.8 Other nonspecific abnormal finding of lung field
CPT/HCPCS: 99204

== ENCOUNTER → 2024-10-06 13:19 | Outpatient (BNVA) | payer MEDICARE, SELFPAY | PROVIDERS: Visit Provider Hospitalist | DX: J41.0 Simple chronic bronchitis (principal); R91.8 Other nonspecific abnormal finding of lung field; Z00.00 Encounter for general adult medical examination without abnormal findings | CPT/HCPCS: 36415; 80053; 80061; 82043; 82306; 82570; 82607; 82746; 84439; 84443; 85025; 99202 ==

== ENCOUNTER 2024-10-06 13:57 | Outpatient (REF) | payer MEDICARE, SELFPAY ==
[2024-10-06 14:09] LABS: MANUAL DIFF FLAG NO
[2024-10-06 14:30] LABS: Basophils Absolute Auto 0.1 X10*3/uL (0.0-0.2); Basophils Percent Auto 1.4 % (0-2); Eosinophils Absolute Auto 0.2 X10*3/uL (0.0-0.4); Eosinophils Percent Auto 2.8 % (0-4); Hematocrit 45.3 % (37.0-47.0); Hemoglobin 15.6 g/dl (12.0-16.0); Imm Gran Abs Auto 0.03 X10*3/uL (0.00-0.03); Imm Gran Pct Auto 0.5 % (0.0-0.4); Lymphocytes Percent Auto 30.5 % (20-40); Mean Corpuscular HGB Conc 34.4 g/dl (31.0-35.0); Mean Corpuscular Hemoglobin 31.3 pg (27.0-33.0); Mean Corpuscular Volume 90.8 fL (80.0-98.0); Mean Platelet Volume 8.9 fL (9.4-12.3); Monocytes Absolute Auto 0.8 X10*3/uL (0.1-1.2); Monocytes Percent Auto 12.2 % (2-11); Neutrophils Absolute Auto 3.4 x10*3/uL (2.0-8.3); Neutrophils Percent Auto 52.6 % (45-73); Platelet Count 365 X10*3/uL (160-400); Red Blood Count 4.99 X10*6/uL (4.20-5.50); Red Cell Distribution Width 13.3 % (11.0-16.0); White Blood Count 6.5 X10*3/uL (4.8-10.8)
[2024-10-06 15:22] LABS: Alanine Aminotransferase 31 U/L (0-31); Albumin Level 4.6 g/dL (3.5-5.0); Alkaline Phosphatase 100 U/L (39-117); Anion Gap 14 (12-20); Aspartate Amino Transferase 22 U/L (5-31); Bilirubin Total 0.4 mg/dL (0.0-1.0); Blood Urea Nitrogen 22 mg/dL (9-16); Calcium 9.4 mg/dL (8.4-10.2); Carbon Dioxide 24 mmol/L (22-29); Chloride 105 mmol/L (96-108); Cholesterol 212 mg/dL (<200); Estimated Glomerular Filt Rate > 60; Glucose Random 103 mg/dL (60-115); HDL Cholesterol 59 mg/dL (>40); LDL Cholesterol Calculated 133 mg/dL (<100); Potassium 3.7 mmol/L (3.3-5.1); Sodium 139 mmol/L (135-145); Total Protein 7.1 g/dL (6.5-8.0); Triglycerides 103 mg/dL (<150)
[2024-10-06 15:34] LABS: Folate > 20.0 ng/mL (> or = 4.0); Vitamin B12 783 pg/mL (200-900)
[2024-10-06 15:48] LABS: Free T4 (Free Thyroxine) 0.98 ng/dL (0.71-1.85); TSH reflex Free T4 2.18 uIU/mL (0.32-4.0)
[2024-10-06 17:13] LABS: Creatinine Urine 79.15 mg/dL; Microalbum/Creatinine Ratio Ur 461.1 ug/mg cr (<30)
[2024-10-13 06:03] LABS: Vitamin D 25-OH, D2 <4 ng/mL; Vitamin D 25-OH, D3 56 ng/mL; Vitamin D 25-OH, Total 56 ng/mL (30-100)
== END 2024-10-06 13:58 | disposition home or self-care (01) ==
LOC: HO.LAB 13:57
DX: Z13.89 Encounter for screening for other disorder (principal)
CPT/HCPCS: 36415; 80053; 80061; 82043; 82306; 82570; 82607; 82746; 84439; 84443; 85025

== ENCOUNTER 2024-10-27 15:29 | Outpatient (AMB) | payer MEDICARE, SELFPAY ==
[2024-10-27 15:48] VITALS: BP 144/86; PULSE 87; O2SAT 94; BMI 33.2
--- NOTE | 2024-10-27 15:48 | A.OFFPC_ITS ---
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 Accompanied by: Self / Same As Patient Allergies No Known Allergies Allergy (Verified 10/27/24 15:49) Medication List - Last Reconciled 10/27/24 by Jenifer Sevilla PA-C albuterol sulfate 90 mcg/actuation (Ventolin HFA) 1 inh inhalation QID PRN amlodipine 5 mg PO DAILY atorvastatin 40 mg PO DAILY bupropion HCl SR 150 mg PO QAM desvenlafaxine succinate ER 100 mg PO QAM desvenlafaxine succinate ER 25 mg PO DAILY folic acid 1 mg PO DAILY lamotrigine 150 mg PO BID lorazepam 1 mg PO BEDTIME Tobacco use date assessed: 07/07/24 Dental Screening Dental Screen Date: 07/07/24 HPI f/u BP HPI Details 74-year-old female with past medical his tory of hypercholesterolemia, anxiety, depression, COPD, hypertension, Alzheimer dementia last seen August 2024 coming in for follow up.? At her last visit amlodipine was decreased to 5 mg due to lower extremity swelling. In review of the notes patient was seen by [facility] pulmonology 10/06/2024 advised to continue on albuterol as needed and CT chest to follow up on pulmonary nodules. At patient's last visit the amlodipine was decreased to 5 mg due to lower extremity swelling. Patient states since discontinuing amlodipine 10 mg she has noticed a drastic improvement in her lower extremity swelling. She does mentioned the last several days she has been on her feet for many hours and has mild swelling but otherwise has seen improvement. She has not been taking her blood pressure at home. She states she did just go for an infusion and her blood pressure may be elevated today. [facility] Medical History Pulmonary nodules History of depression History of anxiety Hypercholesteremia COPD (chronic obstructive pulmonary disease) Hypertension Surgical History H/O spinal fusion History of back surgery Hx of breast augmentation Hx of colonoscopy Hx of hysterectomy Family History Father Lung cancer Mother Brain aneurysm Social History Housing: House Patient Tobacco Use Status: Former Tobacco user e-Cigarette/Vaping Use: Currently Using service: No Current occupational status: retired Cognitive needs: No Hearing needs: No Vision needs: No Questionnaire Thrive Questionnaire Date Thrive assessed: 07/07/24 I am a: Patient What is your living situation today?: I have a steady place to live Within the past 12 months, did the food you bought not last and you didn't have the money to get more?: Never true Within the past 12 months, did you worry whether your food would run out before you got money to buy more?: Never true Do you have trouble paying for medicines?: No Do you have trouble getting transportation to medical appointments?: No Do you have trouble paying your heating and electricity bill?: No Do you have trouble taking care of your child, family member or friend?: No Do you have trouble with day-to-day activities such as bathing, preparing meals, shopping, managing finances, etc.?: No Are you currently unemployed and looking for a job?: No Are you interested in more education?: No Please select the resources that you would like help with: None Currently or been in a relationship where the following occur: No concerns reported THRIVE Score: 0 DOMINIC-7 AMB Questionnaire DOMINIC-7 Date DOMINIC - 7 assessed: 07/07/24 Source: Developed by Drs. Dionicio Alvarez, Lucía Rosado, Jairon Felix and colleagues, with an educational saulo from [employer]. Review of Systems Const Denies body aches, Denies chills, Denies fever(s), Denies headache(s) and Denies poor appetite Eyes Reports no additional complaints ENT Denies dizziness and Denies headache(s) Card Denies chest pain, Denies leg edema, Denies lightheadedness and Denies dyspnea Resp Denies cough and Denies dyspnea GI Denies abdominal pain, Denies nausea and Denies vomiting Reports no additional complaints Musc Reports no additional complaints and Denies abnormal gait Skin/Breast Reports system reviewed and no additional complaints, except as documented Neuro Denies abnormal gait, Denies dizziness and Denies headache(s) Psych Reports no additional complaints Physical exam (Primary Care) Vital Signs: Last Vital Signs Pulse 87 10/27/24 15:48 BP 138/88 10/27/24 16:03 Pulse Ox 94 10/27/24 15:48 Oxygen Delivery Method Room Air 10/27/24 15:48 BMI result Body Mass Index 33.2 Tobacco/Smoking Status: Tobacco use Status Tobacco use date assessed 07/07/24 10/27/24 15:49 Patient Tobacco Use Status Former Tobacco user 10/27/24 15:49 e-Cigarette/Vaping Use Currently Using 10/27/24 15:49 Thrive Assessment: Date of Thrive Assessment Date Thrive assessed 07/07/24 10/27/24 15:49 Currently or been in a relationship where the following occur: No concerns reported Const General: cooperative, healthy appearing, comfortable and no acute distress Orientation/consciousness: patient oriented x3 HENMT Head: Yes normocephalic Ears: hearing grossly normal bilaterally General nose exam: Normal external nose present Eyes General: appearance normal, both eyes and all related structures Conjunctivae: conjunctivae normal Neck Neck: Yes full ROM and Yes no lymphadenopathy Resp Effort & Inspection: normal respiratory effort Auscultation: clear to auscultation bilaterally, no crackles, no rales, no rhonchi and no wheezes Cardio Rate: regular rate Rhythm: regular rhythm Skin General skin exam: no rashes or lesions noted Neuro General: patient oriented x3 Gait exam (Neuro): Normal gait present Extrem General: Yes normal to inspection, Yes full ROM and No edema Psych Affect: normal affect Attitude: cooperative Insight: Good insight present (Psych) Judgement: Good judgement present (Psych) Coding Level of Care Code Est Pt Level 3 (35652) Diagnoses Pulmonary nodules R91.8 Hypertension I10 Simple chronic bronchitis J41.0 COPD type: chronic bronchitis Chronic bronchitis type: simple Hypercholesteremia E78.00 Assessment & Plan Assessment & Plan (1) Pulmonary nodules: Code(s): R91.8 - Other nonspecific abnormal finding of lung field Category: Medical Plan: Seen by pulmonology who ordered chest CT. Continue to follow with pulmonology (2) Hypertension: Code(s): I10 - Essential (primary) hypertension Category: Medical Plan: Continue on current blood pressure medication. Avoid salt intake and encourage healthy diet and regular exercise. Patient's blood pressure still under good control with amlodipine 5 mg. Advised patient to take blood pressure 2-3 times per week and reach out to the office if values are above 140/90. Otherwise we will follow up in 3 months for repeat blood pressure check. (3) COPD (chronic obstructive pulmonary disease): Code(s): J44.9 - Chronic obstructive pulmonary disease, unspecified Category: Medical Qualifiers: COPD type: chronic bronchitis Chronic bronchitis type: simple Qualified Code(s): J41.0 - Simple chronic bronchitis Plan: Currently on albuterol as needed and stable on this medication. (4) Hypercholesteremia: Code(s): E78.00 - Pure hypercholesterolemia, unspecified Category: Medical Plan: Avoid foods that are high in cholesterol such as red meat, fried foods, eggs and baked goods. Triglyceride goal of less than 150 and LDL goal of less than 130. Continue on atorvastatin 40 mg Plan This note was constructed using voice recognition software. While every effort has been made to ensure accuracy and slag dumper, still areas may have been included sometimes these areas may affect the content or meeting of the given symptoms. Total time spent caring for the patient today was 20 minutes. This includes time spent before the visit reviewing the chart, time spent during the visit, and time spent after the visit and documentation.
[2024-10-27 16:03] VITALS: BP 138/88
== END 2024-10-27 16:14 | disposition home or self-care (01) ==
DX: I10 Essential (primary) hypertension (principal); J41.0 Simple chronic bronchitis; R91.8 Other nonspecific abnormal finding of lung field; E78.00 Pure hypercholesterolemia, unspecified

== ENCOUNTER → 2024-10-27 15:29 | Outpatient (BNVA) | payer MEDICARE, SELFPAY | DX: R91.8 Other nonspecific abnormal finding of lung field (principal); I10 Essential (primary) hypertension; J41.0 Simple chronic bronchitis; E78.00 Pure hypercholesterolemia, unspecified | CPT/HCPCS: 99212 ==

== ENCOUNTER 2024-11-10 15:20 | Outpatient (AMB) | payer MEDICARE, SELFPAY ==
--- NOTE | 2024-11-10 15:26 | MHC.OFFVIS ---
Vital Signs 11/10/24 15:27 Height 5 ft 4 in Weight 191 lb BMI 32.8 BP 112/74 Blood Pressure Location Rt brachial Position Sitting Pulse 93 Pulse Source Pulse Oximeter Pulse Oximetry (%) 98 Oxygen Delivery Method Room Air Intake Visit Reasons: INP-Alzheimers Intake Note: Patient presents for follow up alzheimer's Allergies No Known Allergies Allergy (Verified 11/10/24 15:29) Medication List - Last Reconciled 11/19/24 by Мария Perdomo MD albuterol sulfate 90 mcg/actuation (Ventolin HFA) 1 inh inhalation QID PRN amlodipine 5 mg PO DAILY atorvastatin 40 mg PO DAILY bupropion HCl SR 150 mg PO QAM desvenlafaxine succinate ER 100 mg PO QAM desvenlafaxine succinate ER 25 mg PO DAILY folic acid 1 mg PO DAILY lamotrigine 150 mg PO BID lorazepam 1 mg PO BEDTIME HPI Comments Details: 74y/o female with ALzheimers dementia in Nov 2023 . She had LP positive for AD SHe was started on Leqembi January 2024 and has had 10 infusions. During her PCP visit in Jul 2023 - she had some issues with cognitive testing. SHe was referred to Dr. Leung - MRI showed some Global volume loss with temperoparietal predominance. He did LP and started her on leqembi. Her MRI brain has been stable with no evidence of ARIA. Her only issues she has is occasional word retrieval issues. she has h/o depression and anxiety? Bipolar - stable on medications. [facility] Medical History (Updated 11/10/24 @ 16:16 by Мария Perdomo MD) Sleep disorder Pulmonary nodules History of depression History of anxiety Hypercholesteremia COPD (chronic obstructive pulmonary disease) Hypertension Surgical History H/O spinal fusion History of back surgery Hx of breast augmentation Hx of colonoscopy Hx of hysterectomy Family History Father Lung cancer Mother Brain aneurysm Social History Housing: House Patient Tobacco Use Status: Former Tobacco user e-Cigarette/Vaping Use: Currently Using service: No Current occupational status: retired Cognitive needs: No Hearing needs: No Vision needs: No Physical Exam Vital Signs: Last Vital Signs Pulse 93 11/10/24 15:27 BP 112/74 11/10/24 15:27 Pulse Ox 98 11/10/24 15:27 Oxygen Delivery Method Room Air 11/10/24 15:27 BMI result Body Mass Index 32.8 Const General: cooperative, healthy appearing, no acute distress and anxious Nutritional Appearance: obese Orientation/consciousness: oriented to person, oriented to place and oriented to time Eyes Pupils: Equal, round and reactive pupils present Neuro Other: antalgic gait General: oriented to person, oriented to place, oriented to time, moves all extremities and no focal motor deficits Cranial nerves: Yes Facial sensation intact/muscles of mastication intact, Yes Equal, round and reactive pupils present, Yes Bilaterally intact EOM present, Yes Nystagmus not present, Yes Normal facial strength present, Yes Midline tongue present and Yes Ability to bilaterally elevate shoulders present Cognition (Neuro): abnormal cognition Gait exam (Neuro): Antalgic gait present Motor exam (neuro): 5/5 motor strength present throughout and Normal motor muscle tone present throughout Deep tendon reflexes (DTR's): Right triceps reflex intensity grade: 2+, Left triceps reflex intensity grade: 2+, Rt Biceps (C5, C6): 2+, Left biceps reflex intensity grade: 2+, Right brachioradialis reflex intensity grade: 2+, Left brachioradialis reflex intensity grade: 2+, Right patellar reflex intensity grade: 3+ and Left patellar reflex intensity grade: 2+ Coordination: [id number] test normal Orientation What is the (year) (season) (date) (day) (month)?: year, season, day and month Where are we (state) (county) (town or city) (hospital) (floor)?: state, town or city, hospital/clinic and floor Registration Name of 3 unrelated objects clearly and slowly, then ask patient to repeat all 3 of them. (1st repeat determines score. Make sure they can repeat all three): object 1, object 2 and object 3 Attention & Calculation (CHOOSE ONE) Spell WORLD backwards (DLROW): 5 letters Recall Ask patient to repeat the 3 items from question #3.: object 1 Language Show patient a wristwatch & ask what it is. Repeat for pencil.: watch and pencil Ask the patient to repeat the phrase 'No ifs, ands, or buts' after you.: incorrect Ask the patient to 'take a piece of paper with their right hand' 'fold paper in half' 'place paper on floor': take paper in right hand, fold paper in half and place paper on floor Print the sentence 'CLOSE YOUR EYES' on a piece. If patient actually closes eyes then score.: followed written direction Give patient a blank piece of paper & ask to write a sentence. Score if it contains a noun & verb.: sentence contains subject and verb Ask patient to copy figure of intersecting pentagons exactly. Score if all 10 angles & 2 intersects are included.: all 10 angles present & 2 are intersected Score Score: 25 Assessment & Plan Assessment & Plan (1) Alzheimer dementia: Code(s): G30.9 - Alzheimer's disease, unspecified; F02.80 - Dementia in other diseases classified elsewhere, unspecified severity, without behavioral disturbance, psychotic disturbance, mood disturbance, and anxiety Category: Medical Qualifiers: Alzheimer's disease onset: late onset Dementia behavioral or psychological symptom: without behavioral, psychotic, or mood disturbance or anxiety Dementia severity: mild Qualified Code(s): G30.1 - Alzheimer's disease with late onset; F02.A0 - Dementia in other diseases classified elsewhere, mild, without behavioral disturbance, psychotic disturbance, mood disturbance, and anxiety (2) Sleep disorder: Comment: snoring, hypersomnia Code(s): G47.9 - Sleep disorder, unspecified Category: Medical Plan MRI report form [facility] , PET amyloid scan , Continue LEQEMBI infusions . Home sleep test to r/o sleep apnea. Orders: Orders PET Brain beta amyloid 11/10/24 G30.9 - Alzheimer's disease, unspecified, F02.80 - Dementia in other diseases classified elsewhere, unspecified severity, without behavioral disturbance, psychotic disturbance, mood disturbance, and anxiety Coding Level of Care Code New Pt Level 4 (81392) Complex EM visit Add On G2211 Diagnoses Mild late onset Alzheimer's dementia without behavioral disturbance, psychotic disturbance, mood disturbance, or anxiety G30.1; F02.A0 Alzheimer's disease onset: late onset Dementia behavioral or psychological symptom: without behavioral, psychotic, or mood disturbance or anxiety Dementia severity: mild Sleep disorder G47.9
[2024-11-10 15:27] VITALS: BP 112/74; PULSE 93; O2SAT 98; BMI 32.8
== END 2024-11-10 16:25 | disposition home or self-care (01) ==
PROVIDERS: Visit Provider Psychiatry & Neurology Neurology
DX: G30.1 Alzheimer's disease with late onset (principal); F02.A0 Dementia in other diseases classified elsewhere, mild, without behavioral disturbance, psychotic disturbance, mood disturbance, and anxiety; G47.9 Sleep disorder, unspecified
CPT/HCPCS: 99204; G2211

== ENCOUNTER → 2024-11-10 15:20 | Outpatient (BNVA) | payer MEDICARE, SELFPAY | PROVIDERS: Visit Provider Psychiatry & Neurology Neurology | DX: G30.1 Alzheimer's disease with late onset (principal); F02.A0 Dementia in other diseases classified elsewhere, mild, without behavioral disturbance, psychotic disturbance, mood disturbance, and anxiety; G47.9 Sleep disorder, unspecified | CPT/HCPCS: 99202 ==

== ENCOUNTER 2024-11-14 13:45 | Outpatient (REF) | payer MEDICARE, SELFPAY ==
--- NOTE | ~2024-11-14 | CT_ITS ---
EXAMINATION: CT CHEST WITHOUT IV CONTRAST INDICATION: R91.8 - Other nonspecific abnormal finding of lung field COMPARISON: There are no prior studies available for comparison. TECHNIQUE: Helical CT scan of the chest was performed without intravenous contrast. Coronal and sagittal reformatted images were generated and reviewed. This CT exam was performed with one or more of the following dose reduction techniques: automated exposure control, adjustment of the mA and/or kV according to patient size, use of iterative reconstruction technique. DLP: mGy-cm CHEST: THYROID: The thyroid is unremarkable. LUNGS:Again seen are 3 mm nodules in the both lung apices (series 4, image 19 on the right and series 4, image 14 on the left). There is linear scarring in the lingula. MEDIASTINUM: There is no mediastinal lymphadenopathy. EDVIN: Evaluation of the hilar regions is limited by lack of intravenous contrast material. CARDIOVASCULATURE: The heart is normal in size. There is no pericardial effusion. The thoracic aorta is normal in caliber. 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 DEGREE OF CORONARY CALCIFICATION: none PLEURA: There is no pleural effusion. No pneumothorax. MAIN AIRWAYS: The mainstem bronchi and proximal branches are patent. AXILLA: There is no axillary lymphadenopathy. BONES AND SOFT TISSUES: Bilateral breast implants are again noted. There is degenerative disc disease of the spine. UPPER ABDOMEN: The visualized portions of the liver, spleen, and right adrenal gland have an unremarkable appearance. Again seen is a 1.6 cm left adrenal nodule compatible with an adenoma. CT/CT chest wo IV con IMPRESSION: 1. Stable 3 mm lung nodules at both lung apices. 2. Stable 1.6 cm left adrenal adenoma. Electronically signed by: Dionicio Delgado MD 11/17/2024 07:40 AM [facility]
== END 2024-11-14 13:46 | disposition home or self-care (01) ==
LOC: HO.CT 13:45
PROVIDERS: PCP Nurse Practitioner Family; Visit Provider Hospitalist
DX: R91.8 Other nonspecific abnormal finding of lung field (principal)
CPT/HCPCS: 71250

== ENCOUNTER → 2024-11-14 13:48 | Outpatient (BNV) | payer MEDICARE, SELFPAY | PROVIDERS: PCP Nurse Practitioner Family; Visit Provider Radiology Diagnostic Radiology | DX: R91.8 Other nonspecific abnormal finding of lung field (principal); D35.01 Benign neoplasm of right adrenal gland | CPT/HCPCS: 71250 ==

== ENCOUNTER 2024-12-29 15:17 | Outpatient (AMB) | payer MEDICARE, SELFPAY ==
--- NOTE | 2024-12-29 15:25 | MHC.OFFVIS ---
Vital Signs 12/29/24 15:26 Height 5 ft 4 in Weight 183 lb BMI 31.4 BP 132/84 Blood Pressure Location Rt brachial Position Sitting Intake Visit Reasons: f/u appt per workload Intake Note: Patient presents for follow up PET Scan done 12/19/24 Allergies No Known Allergies Allergy (Verified 12/29/24 15:27) HPI Comments Details: 74y/o female with ALzheimers dementia in Nov 2023 . She had LP positive for AD Her recent AMyvid scan was positive. SHe was started on Leqembi January 2024 and had her 19th infusion last week . No change . denies any side effects . she had COVID 3 weeks ago and she felt her word retrieval was worse.she also ahs issues during the later part of the day. History from initial visit- During her PCP visit in Jul 2023 - she had some issues with cognitive testing. SHe was referred to Dr. Leung - MRI showed some Global volume loss with temperoparietal predominance. He did LP and started her on leqembi. Her MRI brain has been stable with no evidence of ARIA. Her only issues she has is occasional word retrieval issues. she has h/o depression and anxiety? Bipolar - stable on medications. [facility] Medical History Sleep disorder Pulmonary nodules History of depression History of anxiety Hypercholesteremia COPD (chronic obstructive pulmonary disease) Hypertension Surgical History H/O spinal fusion History of back surgery Hx of breast augmentation Hx of colonoscopy Hx of hysterectomy Family History Father Lung cancer Mother Brain aneurysm Social History Housing: House Patient Tobacco Use Status: Former Tobacco user e-Cigarette/Vaping Use: Currently Using service: No Current occupational status: retired Cognitive needs: No Hearing needs: No Vision needs: No Physical Exam Vital Signs: Last Vital Signs BP 132/84 12/29/24 15:26 BMI result Body Mass Index 31.4 Const General: cooperative, healthy appearing, no acute distress and anxious Nutritional Appearance: obese Orientation/consciousness: oriented to person, oriented to place and oriented to time Eyes Pupils: Equal, round and reactive pupils present Neuro Other: antalgic gait General: oriented to person, oriented to place, oriented to time, moves all extremities and no focal motor deficits Cranial nerves: Yes Facial sensation intact/muscles of mastication intact, Yes Equal, round and reactive pupils present, Yes Bilaterally intact EOM present, Yes Nystagmus not present, Yes Normal facial strength present, Yes Midline tongue present and Yes Ability to bilaterally elevate shoulders present Cognition (Neuro): abnormal cognition Gait exam (Neuro): Antalgic gait present Coordination: [id number] test normal Assessment & Plan Assessment & Plan (1) Alzheimer dementia: Code(s): G30.9 - Alzheimer's disease, unspecified; F02.80 - Dementia in other diseases classified elsewhere, unspecified severity, without behavioral disturbance, psychotic disturbance, mood disturbance, and anxiety Category: Medical Qualifiers: Alzheimer's disease onset: late onset Dementia severity: mild Dementia behavioral or psychological symptom: without behavioral, psychotic, or mood disturbance or anxiety Qualified Code(s): G30.1 - Alzheimer's disease with late onset; F02.A0 - Dementia in other diseases classified elsewhere, mild, without behavioral disturbance, psychotic disturbance, mood disturbance, and anxiety (2) Sleep disorder: Comment: snoring, hypersomnia Code(s): G47.9 - Sleep disorder, unspecified Category: Medical Plan Continue LEQEMBI infusions .will consider decreasing leqembi to q 4 weeks Discussed about engaging in cognitively stimulating activities Home sleep test to r/o sleep apnea. Orders: Orders MR head/brain wo con 02/26/25 F03.90 - Unspecified dementia, unspecified severity, without behavioral disturbance, psychotic disturbance, mood disturbance, and anxiety Coding Level of Care Code Est Pt Level 4 (57084) Diagnoses Mild late onset Alzheimer's dementia without behavioral disturbance, psychotic disturbance, mood disturbance, or anxiety G30.1; F02.A0 Alzheimer's disease onset: late onset Dementia severity: mild Dementia behavioral or psychological symptom: without behavioral, psychotic, or mood disturbance or anxiety Sleep disorder G47.9
[2024-12-29 15:26] VITALS: BP 132/84; BMI 31.4
--- OUTSIDE RECORDS SUMMARY | 2024-12-29 18:09 | XMS_ITS | Clinical Summary ---
Author Organization [facility] Address [address] [place] [phone] Phone Care Team Providers Care Control Technician Name Role Phone Keira Albright MD Primary Care Provider [phone] Allergies No known active allergies Medications atorvastatin (LIPITOR) 40 mg tablet TAKE 1 TABLET BY MOUTH AT BEDTIME 30 tablet 4 Active folic acid (FOLVITE) 1 mg tablet Take 1 tablet (1,000 mcg total) by mouth 1 (one) time each day. 4 Active amLODIPine (NORVASC) 10 mg tablet Take 1 Tablet by mouth at bedtime. 4 Active albuterol HFA (PROAIR HFA ; PROVENTIL HFA ; VENTOLIN HFA) 90 mcg/actuation inhaler Inhale 2 Puffs into the lungs 4 times daily as needed for Cough, Wheezing or Shortness of Breath. 3 Active desvenlafaxine succinate (PRISTIQ) 25 mg 24 hr tablet Take 25 mg by mouth daily. 3 Active magnesium 200 mg tablet Take by mouth daily. Active cholecalciferol , vitamin D3, (VITAMIN D3 ORAL) Take by mouth daily. Active desvenlafaxine 100 mg tablet extended release 24 hr Take 1 tablet by mouth 1 (one) time each day. 1 Active lamoTRIgine (LaMICtal) 150 mg tablet Take 1 tablet (150 mg total) by mouth 2 (two) times a day. 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 Alzheimer disease 02/11/2024 Cardiac murmur 02/11/2024 Cognitive impairment 08/10/2023 Lumbar spondylosis 08/10/2023 Ascending aorta dilatation 04/09/2023 Overview (10/15/2024): 3.4 cm Mild episode of recurrent major depressive disor yohana 08/20/2019 Ovarian cyst, right 03/18/2018 Overview (10/15/2024): 03/12/18 4.4 x 3.2 cm, recommend 1 year f/u Lung nodule 09/26/2017 Osteopenia 09/26/2017 Bipolar disorder 07/30/2017 Overview (10/15/2024): Follows with Queenie Valdivia Degenerative disc disease, lumbar 07/30/2017 Overview (10/15/2024): Seen Dr Ortez and follows with [facility] Pain mangement- Dr Brooks HTN (hypertension) 07/30/2017 Hyperlipidemia 07/30/2017 Microhematuria 07/30/2017 Overview (10/15/2024): Follows with Dr Carter annually Encounters Date Type Department Care Team Description 12/19/2024 12:01 PM EST - 12/19/2024 11:59 PM EST Hospital Encounter [facility] PET Scan [address] [place] [address] Alzheimer's disease, unspecified (CODE) ([facility]) Discharge Disposition: Home or Self Care from Last 3 Months Immunizations Name Administration Dates Next Due Influenza trivalent, 0.5mL ( Fluad) 65yo and older 08/10/2023,10/03/2021 Moderna SARS-CoV-2 COVID-19, mRNA, LNP-S, preservative free 09/30/2021,01/23/2021,12/26/2020 Pneumococcal conjugate 13 va lent (Prevnar 13, PCV13) 2mo and older 11/05/2017 Pneumococcal polysaccharide 23 valent (Pneumovax 23) 2yo and older 03/31/2019 Td Tetanus diptheria (Tdvax) 7yo and older 11/05 Surgical History Surgery Date Site/Laterality Comments HYSTERECTOMY PROCEDURE: HISTORICAL HYSTERECTOMY; COMMENT: in 30s- fibroid BACK SURGERY 1984 PROCEDURE: HISTORICAL BACK SURGERY; COMMENT: L5 herniated disc COLONOSCOPY 11/27/2012 PROCEDURE: HISTORICAL COLONOSCOPY OTHER SURGICAL HISTORY 11/2018 PROCEDURE: DC TRANSPEDICULAR DCMPRN SPINAL CORD 1 SEG LUMBAR; COMMENT: tlif- Dr Ortez Medical History Medical History Date Comments Hyperlipidemia 07/30/2017 DX:Hyperlipidemi a HTN (hypertension) 07/30/2017 DX:HTN (hyper tension) Major depression 07/30/2017 DX:Major depres kenia; COMMENT: Follows with Queenie Castelinous Degenerative disc disease, lumbar 07/30/2017 DX:Degenerative disc disease, lumbar; COMMENT: Seen Dr Ortez and follows with [facility] Pain mangement Microhematuria 07/30/2017 DX:Microhematuri a; COMMENT: Follows with Dr Carter annually Lung nodule 09/26/2017 DX:Lung nodule Osteopenia 09/26/2017 DX:Osteopenia Depression 08/05/2018 DX:Depression 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/2024 DX:Recurren t cold sores Family History Medical History Relation Name Comments Lung cancer Father Brain Aneurysm Mother Relation Name Status Comments Father Mother Social History Tobacco Use Types Packs/Day Years Used Date Smoking Tobacco: Former Cigarettes Q uit: 10/29/2010 Smokeless Tobacco: Never Alcohol Use Standard Drinks/Week Comments Yes 0 (1 standard drink = 0.6 oz pur e alcohol) Comments Unknown Sex and Gender Information Value Date Recorded Sex Assigned at Not on file Legal Sex Female 10:49 AM EST Gender Identity Not on file Sexual Orientation Not on file Obstetrics History Last Filed Vital Signs Vital Sign Reading Time Taken Comments Blood Pressure 120/80 04/02/2024 4:19 PM EDT Pulse 88 04/02/2024 4:19 PM EDT Temperature - - Respiratory Rate - - Oxygen Saturation - - Inhaled Oxygen Concentration - - Weight 83 kg (183 lb) 04/02/2024 4:19 PM EDT Height 163.8 cm (5' 4.5 ) 04/02/2024 4:19 PM EDT Body Mass Index 30.93 04/02/2024 4:19 PM EDT Plan of Treatment Health Maintenance Due Date Last Done Comments Breast Cancer Screening 1950 Zoster Vaccines (1 of 2) 2002 RSV Immunization Patients 60 + Years Old (1 - Risk 60-74 years 1-dose series) 2012 Colorectal Cancer Screening: Colonoscopy 10/07/2022 Depression Screening 10/07/2022 Social Influencers of Health Screening 10/07/2022 COVID-19 Vaccine (4 - 2023-2 5 season) 2024 09/30/2021, 01/23/2021, 12/26/2020 Influenza Vaccine (#1) 2024 , 10/03/2021 Falls Risk Assessment 02/10/2025 02/11/2024 Hypertension/CHF/CAD Annual BMP Blood Test 04/02/2025 04/02/2024, 04/02/2024 Medicare Annual Wellness Visit 09/08/2025 09/08/2024 DTaP,Tdap,and Td Vaccines (2 - Td or Tdap) 11/05/2027 11/05/2017 Cholesterol Screening (Lipid Panel) 04/02/2029 04/02/2024, 04/02/2024 Osteoporosis Screening (Bone Density Screening) 10/04/2032 10/04/2022, 11/19/2017 Hepatitis C Screening Completed 07/30/2017 Pneumococcal Vaccine: 50+ Years Completed 03/31/2019, 11/05/2017 HIB Vaccines Aged Out No longer eligi ble based on patient's age to complete this topic HPV Vaccines Aged Out No longer eligi ble based on patient's age to complete this topic Hepatitis A Vaccines Aged Out No long er eligible based on patient's age to complete this topic Hepatitis B Vaccines Aged Out No long er eligible based on patient's age to complete this topic IPV Vaccines Aged Out No longer eligi ble based on patient's age to complete this topic MMR Vaccines Aged Out No longer eligi ble based on patient's age to complete this topic Meningococcal ACWY Vaccine Aged Out N o longer eligible based on patient's age to complete this topic Meningococcal B Vacine Aged Out No lo nger eligible based on patient's age to complete this topic RSV Immunization Patients Under 20 months Aged Out No longer eligible b ased on patient's age to complete this topic Varicella Vaccines Aged Out No longer eligible based on patient's age to complete this topic Procedures Procedure Name Priority Date/Time Associated Diagnosis Comments PET CT LIMITED AREA INITIAL Routine 12/19/2024 2:05 PM EST Alzheimer's disease, unspecified (CODE) ([facility]) ANNUAL BMP BLOOD TEST Routine 04/02/2024 LIPID PANEL Routine 04/02/2024 FALLS RISK ASSESSMENT Routine 02/11/2024 DXA BONE DENSITY STUDY 1+ SITS AXIAL SKEL Routine 10/04/2022 11:46 AM EST Other specified disorders of bone density and structure, unspecified site HEPATITIS C SCREENING Routine 07/30/2017 from Last 3 Months or Most Recently Relevant to Health Maintenance Results * PET CT Limited Area Initial (12/19/2024 2:05 PM EST) Anatomical Region Laterality Modality Body Radiographic Margy ging 12/22/2024 11:0 2 AM EST Impressions 12/26/2024 4:00 AM EST Positive scan. This scan was interpreted using consensus imaging with another board certified radiologist, Dr. Odonnell. Please note: The CT was acquired at a low radiation dose settings. ??The images are of nondiagnostic quality and used solely for purposes of attenuation correction and slice localization for the PET scan. ??If a diagnostic CT study is desired it must be ordered separately. -------- FINAL REPORT -------- Dictated By: Tiffanie Willoughby Dictated Date: 12/22/2024 11:02 ET Assigned Physician: Tiffanie Willoughby Reviewed and Electronically Signed By: Tiffanie Willoughby Signed Date: 12/26/2024 04:00 ET Workstation ID: [id number] Transcribed By: Self Edit Transcribed Date: 12/22/2024 11:34 ET Narrative 12/26/2024 4:00 AM EST INDICATION: Alzheimer's DISEASE TECHNIQUE: F-18 Amyvid PET imaging was performed from of the head in a single acquisition with data set reconstructed in axial, coronal, and sagittal planes at the computer workstation with fused data from both the PET imaging study and attenuation correction CT. The CT portion of the examination was done strictly for attenuation correction and is not a true diagnostic CT examination. DLP: ??968 mGy-cm Radiopharmaceutical: 10.0 mCi of F-18 Florbetapir IV. COMPARISON: Correlation is made with outside brain MRI dated April 2024 FINDINGS: HEAD AND NECK: Loss of luu-white matter differentiation. ??Cerebral volume loss with scattered white matter hypodensities which may represent microangiopathic white matter change. Procedure Note Tiffanie Willoughby MD - 12/26/2024 INDICATION: Alzheimer's DISEASE TECHNIQUE: F-18 Amyvid PET imaging was performed from of the head in asingle acquisition with data set reconstructed in axial, coronal, andsagittal planes at the computer workstation with fused data from both thePET imaging study and attenuation correction CT. The CT portion of theexamination was done strictly for attenuation correction and is not a truediagnostic CT examination. DLP: 968 mGy-cm Radiopharmaceutical: 10.0 mCi of F-18 Florbetapir IV. COMPARISON: Correlation is made with outside brain MRI dated April 2024 FINDINGS: HEAD AND NECK: Loss of luu-white matter differentiation. Cerebral volumeloss with scattered white matter hypodensities which may representmicroangiopathic white matter change. IMPRESSION: Positive scan. This scan was interpreted using consensus imaging with another boardcertified radiologist, Dr. Odonnell. Please note: The CT was acquired at a low radiation dose settings. The images are ofnondiagnostic quality and used solely for purposes of attenuationcorrection and slice localization for the PET scan. If a diagnostic CTstudy is desired it must be ordered separately. -------- FINAL REPORT -------- Dictated By: Tiffanie Willoughby Dictated Date: 12/22/2024 11:02 ET Assigned Physician: Tiffanie Willoughby Reviewed and Electronically Signed By: Tiffanie Willoughby Signed Date: 12/26/2024 04:00 ET Workstation ID: [id number] Transcribed By: Self Edit Transcribed Date: 12/22/2024 11:34 ET Result [facility] Мария Perdomo MD IMG NM PROCEDURES Final Result * Annual BMP Blood Test (04/02/2024) Pathologist [facility] Annual BMP Blood Test abstracted Result [facility] Historical Provider HEALTH MAINTENANCE Final Result * (ABNORMAL) Lipid panel (04/02/2024) [facility] LDL/HDL Ratio 3 0 - 4 Triglycerides 183(A) 0 - 150 mg/dL Cholesterol 214(A) 0 - 200 mg/dL HDL 67 >=40 mg/dL LDL Cholesterol 111(A) 0 - 100 mg/dL Blood Venous blood specimen / Unknown Result [facility] Provider LAB BLOOD ORDERABLES Shannon l Result * Falls Risk Assessment (02/11/2024) [facility] Falls Risk Assessment abstracted Result [facility] Provider HEALTH MAINTENANCE Final Result * DXA BONE DENSITY STUDY 1+ SITS AXIAL SKEL (10/04/2022 11:46 AM EST) Anatomical Region Laterality Modality Bone Densitometr y 08/01/2022 10:2 5 AM EDT Narrative 10/04/2022 6:21 PM EST BONE DENSITY SCAN (DEXA): FINDINGS: Lumbar Spine L1 and L2, L3 and L4 excluded due to presence of spinal fusion hardware. T-score is -0.1. ?? (SD relative to 20-29 y/o adult) Z-score is 1.8. ??(SD relative to age matched peers) This is considered normal by WHO criteria. Left Hip T-score is -2.1. Z-score is -0.3. This is considered osteopenia by WHO criteria. Comparison exam(s): 11/19/2017. ??18.4% loss of lumbar spine bone mineral density and 5.2% loss of left hip bone mineral density, both statistically significant at the 95% confidence level. IMPRESSION: IMPRESSION: Osteopenia by WHO criteria. This patient has a 12% risk of major osteoporotic fracture and a 2.5% risk of hip fracture over the next 10 years. (World Health Organization Fracture Risk Assessment) [facility] Department of Internal Medicine recommends using National Osteoporosis Foundation (NOF) guidelines in treatment decisions related to osteoporosis. NOF guidelines suggest considering treatment for postmenopausal women and men aged 50 or older presenting with the following: History of hip or vertebral fracture. T-score = -2.5 (DXA) at the femoral neck, total hip, or spine, after appropriate evaluation to exclude secondary causes. Low bone mass (T-score between -1.0 and -2.5 at the femoral neck or spine) AND a 10-year probability of a hip fracture = 3% OR a 10-year probability of a major osteoporosis-related fracture = 20% based on the [place]-adapted WHO algorithm Please note that all treatment decisions require clinical judgment and consideration of individual patient factors, including patient preferences, co-morbidities, previous drug use, risk factors not captured in the FRAX model (e.g., frailty, falls, vitamin D deficiency, increased bone turnover, interval significant decline in bone density) and possible under- or over-estimation of fracture risk by FRAX. Optional alternative screening schedule based on yandy Sanchez., [facility] November 16, 2011 for patients with osteopenia (based on hip BMD T-score) is as follows: * ??advanced osteopenia (T scores -2.00 to -2.49), BMD testing every year * ??moderate osteopenia (T scores -1.50 to -1.99), BMD testing every 5 years mild osteopenia or normal BMD (T scores -1.50 and higher), BMD testing every 15 years Procedure Note Olivia Madsen MD - 12/27/2023 BONE DENSITY SCAN (DEXA): FINDINGS: Lumbar Spine L1 and L2, L3 and L4 excluded due to presence of spinalfusion hardware. T-score is -0.1. (SD relative to 20-29 y/o adult) Z-score is 1.8. (SD relative to age matched peers) This is considered normal by WHO criteria. Left Hip T-score is -2.1. Z-score is -0.3. This is considered osteopenia by WHO criteria. Comparison exam(s): 11/19/2017. 18.4% loss of lumbar spine bone mineraldensity and 5.2% loss of left hip bone mineral density, both statistically significant at the95% confidence level. IMPRESSION: IMPRESSION: Osteopenia by WHO criteria. This patient has a 12% risk of majorosteoporotic fracture and a 2.5% risk of hip fracture over the next 10 years. (World HealthOrganization Fracture Risk Assessment) [facility] Department of Internal Medicine recommendsusing National Osteoporosis Foundation (NOF) guidelines in treatment decisions related toosteoporosis. NOF guidelines suggest considering treatment for postmenopausal women and menaged 50 or older presenting with the following: History of hip or vertebral fracture. T-score = -2.5 (DXA) at the femoral neck, total hip, or spine, afterappropriate evaluation to exclude secondary causes. Low bone mass (T-score between -1.0 and -2.5 at the femoral neck or spine)AND a 10-year probability of a hip fracture = 3% OR a 10-year probability of a majorosteoporosis-related fracture = 20% based on the [place]-adapted WHO algorithm Please note that all treatment decisions require clinical judgment andconsideration of individual patient factors, including patient preferences, co- morbidities,previous drug use, risk factors not captured in the FRAX model (e.g., frailty, falls, vitaminD deficiency, increased bone turnover, interval significant decline in bone density) andpossible under- or over-estimation of fracture risk by FRAX. Optional alternative screening schedule based on yandy Sanchez., NEJMJanuary 2011 for patients with osteopenia (based on hip BMD T-score) is as follows: * advanced osteopenia (T scores -2.00 to -2.49), BMD testing every year * moderate osteopenia (T scores -1.50 to -1.99), BMD testing every 5years mild osteopenia or normal BMD (T scores -1.50 and higher), BMD testingevery 15 years [facility] IMG DXA PROCEDURES Final Result * Hepatitis C Screening (07/30/2017) [facility] Hepatitis C Screening abstracted Historical Provider HEALTH MAINTENANCE Final Result from Last 3 Months or Most Recently Relevant to Health Maintenance Insurance MEDICARE Care Teams Control Technician Relationship Specialty Start Date End Date Keira Albright MD [address] [place] [id number] PCP - General Internal Medicine 09/05/21
--- OUTSIDE RECORDS SUMMARY | 2024-12-29 18:09 | XMS_ITS | Encounter Summary ---
Author Organization [facility] Address [address] [place] [phone] Care Team Providers Care Media Center Director School Name Role Phone Keira Albright MD Primary Care Provider [phone] Reason for Referral * Imaging (Routine) - Closed Specialty Diagnoses / Procedures Referred By Yaz akbar Referred To Contact Radiology Diagnoses Alzheimer's disease, unspecified (CODE) (CMS/HCC) Procedures PET CT Limited Area Initial Мария Perdomo MD Phone: tel: fax: [facility] Referral ID Status Reason Start Date Expiration Date Visits Re quested Visits Authorized [id number] Closed 12/18/2024 12/18/2025 1 1 Reason for Visit * Imaging (Routine) - Closed Specialty Diagnoses / Procedures Referred By Yaz akbar Referred To Contact Radiology Diagnoses Alzheimer's disease, unspecified (CODE) (CMS/HCC) Procedures PET CT Limited Area Initial Мария Perdomo MD Phone: tel: fax: [facility] Referral ID Status Reason Start Date Expiration Date Visits Re quested Visits Authorized [id number] Closed 12/18/2024 12/18/2025 1 1 Encounter Details Date Type Department Care Team (Latest Contact Info) Description 12/19/2024 12:01 PM EST - 12/19/2024 11:59 PM EST Hospital Encounter [facility] PET Scan [address] [place] [id number] Alzheimer's disease, unspecified (CODE) (CMS/HCC) Discharge Disposition: Home or Self Care Social History Tobacco Use Types Packs/Day Years [...] on file Sexual Orientation Not on file documented as of this encounter Medications at Time of Discharge albuterol HFA (PROAIR HFA ; PROVENTIL HFA ; VENTOLIN HFA) 90 mcg/actuation inhaler Inhale 2 Puffs into the lungs 4 times daily as needed for Cough, Wheezing or Shortness of Breath. 04/02/2023 amLODIPine (NORVASC) 10 mg tablet Take 1 Tablet by mouth at bedtime. 02/11/2024 atorvastatin (LIPITOR) 40 mg tablet TAKE 1 TABLET BY MOUTH AT BEDTIME 30 tablet 10/06/2024 buPROPion SR (WELLBUTRIN SR) 150 mg 12 hr tablet 1 po qam 08/30/2021 cholecalciferol, vitamin D3, (VITAMIN D3 ORAL) Take by mouth daily. desvenlafaxine 100 mg tablet extended release 24 hr Take 1 tablet by mouth 1 (one) time each day. 08/30/2021 desvenlafaxine succinate (PRISTIQ) 25 mg 24 hr tablet Take 25 mg by mouth daily. 02/01/2023 folic acid (FOLVITE) 1 mg tablet Take 1 tablet (1,000 mcg total) by mouth 1 (one) time each day. 04/02/2024 lamoTRIgine (LaMICtal) 150 mg tablet Take 1 tablet (150 mg total) by mouth 2 (two) times a day. 08/30/2021 LORazepam (ATIVAN) 0.5 mg tablet 1/2-1 po bid prn anxiety or insomnia 08/30/2021 magnesium 200 mg tablet Take by mouth daily. documented as of this encounter Discharge Disposition Disposition Code Departure Means Destination Home or Self Care documented in this encounter Plan of Treatment Not on file documented as of this encounter Procedures Procedure Name Priority Date/Time Associated Diagnosis Comments PET CT LIMITED AREA INITIAL Routine 12/19/2024 2:05 PM EST Alzheimer's disease, unspecified (CODE) ([facility]) documented in this encounter Results * PET CT Limited Area Initial [...] Signed Date: 12/26/2024 04:00 ET Workstation ID: [id number] Transcribed By: Self Edit Transcribed Date: 12/22/2024 [...] Signed Date: 12/26/2024 04:00 ET Workstation ID: [id number] Transcribed By: Self Edit Transcribed Date: 12/22/2024 11:34 ET Мария Perdomo MD IMG [place] PROCEDURES Final Result documented in this encounter Visit Diagnoses Diagnosis Alzheimer's disease, unspecified (CODE) ([facility]) documented in this encounter Administered Medications Inactive Administered Medications - up to 3 most recent administrations Medication Order MAR Action Action Date Dose Rate Site F-18 florbetapir radio-isotope injection 10 millicurie 10 millicurie, intravenous, Once in imaging, Starting on Sun12/19/24 at 1245, For 1 dose Given 12/19/2024 12:39 PM EST 10 millicuries Right Antecubital documented in this encounter Orders Medications Ordered That Chaz ht Not Have Been Administered Count Last Ordered Date First Ordered Date F-18 FDG pet diag radio-isot ope injection 10 millicurie 1 12/19/2024 documented in this encounter Care Teams Media Center Director School Relationship Specialty Start Date End Date Keira Albright MD [address] [place] [address] PCP - General Internal Medicine 09/05/21 documented as of this encounter
== END 2024-12-29 15:58 | disposition home or self-care (01) ==
PROVIDERS: PCP Nurse Practitioner Family; Visit Provider Psychiatry & Neurology Neurology
DX: G30.1 Alzheimer's disease with late onset (principal); F02.A0 Dementia in other diseases classified elsewhere, mild, without behavioral disturbance, psychotic disturbance, mood disturbance, and anxiety; G47.9 Sleep disorder, unspecified
CPT/HCPCS: 99214

== ENCOUNTER → 2024-12-29 15:17 | Outpatient (BNVA) | payer MEDICARE, SELFPAY | PROVIDERS: PCP Nurse Practitioner Family; Visit Provider Psychiatry & Neurology Neurology | DX: G30.1 Alzheimer's disease with late onset (principal); F02.A0 Dementia in other diseases classified elsewhere, mild, without behavioral disturbance, psychotic disturbance, mood disturbance, and anxiety; G47.9 Sleep disorder, unspecified | CPT/HCPCS: 99212 ==

== ENCOUNTER → 2025-01-14 08:52 | Outpatient (REF) | payer MEDICARE, SELFPAY | LOC: HO.SL 08:52 | PROVIDERS: PCP Nurse Practitioner Family; Visit Provider Psychiatry & Neurology Neurology | DX: G47.30 Sleep apnea, unspecified (principal); G47.9 Sleep disorder, unspecified; R06.83 Snoring; R40.0 Somnolence | CPT/HCPCS: 95806 ==

== ENCOUNTER → 2025-01-14 09:07 | Outpatient (BNV) | payer MEDICARE, SELFPAY | PROVIDERS: PCP Nurse Practitioner Family; Visit Provider Psychiatry & Neurology Neurology | DX: G47.33 Obstructive sleep apnea (adult) (pediatric) (principal) | CPT/HCPCS: 95806 ==

== ENCOUNTER 2025-01-26 15:24 | Outpatient (AMB) | payer MEDICARE, SELFPAY ==
--- NOTE | 2025-01-26 15:30 | A.OFFPC_ITS ---
Vital Signs 01/26/25 15:32 01/26/25 16:15 Height 5 ft 4 in Weight 180 lb 2 oz BMI 30.9 BP 130/80 Blood Pressure Location Lt brachial Position Sitting Pulse 107 H 94 Pulse Source Pulse Oximeter Pulse Oximeter Temp 97.1 F Temp Source Temporal Artery Scan Pulse Oximetry (%) 96 Oxygen Delivery Method Room Air Intake Visit Reasons: f/u HTN Intake Note: Patient is here to follow up on HTN. Switchboard Mechanic Required: No Plunger Shovel Operator: Not Required per policy Accompanied by: Self / Same As Patient Allergies No Known Allergies Allergy (Verified 01/26/25 15:57) Medication List - Last Reconciled 01/26/25 by Jenifer Sevilla PA-C albuterol sulfate 90 mcg/actuation (Ventolin HFA) 1 inh inhalation QID PRN amlodipine 5 mg PO DAILY atorvastatin 40 mg PO DAILY bupropion HCl SR 150 mg PO QAM desvenlafaxine succinate ER 100 mg PO QAM desvenlafaxine succinate ER 25 mg PO DAILY folic acid 1 mg PO DAILY lamotrigine 150 mg PO BID lecanemab-irmb (Leqembi) 830 mg (8.3 mL) IV Q4W lorazepam 1 mg PO BEDTIME Tobacco use date assessed: 01/26/25 Fall risk assessment: No Falls in past year Last assessed Fall Risk: 01/26/25 Dental Screening Dental Screen Date: 01/26/25 Did you have a dental visit in the last 12 months?: Yes Did you have a dental problem in the last 6 months where you did not have access to dental care?: No Was dental information given to patient?: Patient has dentist HPI f/u HTN HPI Details 74-year-old female with past medical his tory of hypercholesterolemia, anxiety, depression, COPD, hypertension, Alzheimer dementia last seen September 2024 coming in for follow up.? Patient was seen by Neurology 12/29/2024 advised to continue on Leqembi infusions and ordered for home sleep test to rule out sleep apnea.? Sleep study was mildly positive recommending CPAP. - Alzheimer's Disease: Diagnosed previou fernando, the patient's condition affects her language and cognitive abilities, now managed with LeQuembi. Care is overseen by Dr. Allan after a change from a previous physician. - Obstructive Sleep Apnea: Diagnosed wit h mild obstructive sleep apnea; options outside CPAP are being explored due to concerns about comfort. - Chronic Obstructive Pulmonary Disease (COPD): Managed with an albuterol inhaler on an as-needed basis due to mild symptoms. - Obesity: The patient's weight has vari ed recently, with current weight recorded as 180 pounds. - Hypertension: The patient?s blood pres sure is well controlled. PFSH Medical History Sleep disorder Pulmonary nodules History of depression History of anxiety Hypercholesteremia COPD (chronic obstructive pulmonary disease) Hypertension Surgical History H/O spinal fusion History of back surgery Hx of breast augmentation Hx of colonoscopy Hx of hysterectomy Family History Father Lung cancer Mother Brain aneurysm Social History Housing: House Alcohol intake: current Alcohol intake frequency: a few times a month Patient Tobacco Use Status: Former Tobacco user e-Cigarette/Vaping Use: Currently Using Second Hand Smoke Exposure: Yes service: No Current occupational status: retired Cognitive needs: No Hearing needs: No Vision needs: No Questionnaire PHQ-9 Over the last 2 weeks, how often have you been bothered by any of the following problems? 1. Little interest or pleasure in doing things: not at all 2. Feeling down, depressed, or hopeless: not at all 3. Trouble falling or staying asleep, or sleeping too much: not at all 4. Feeling tired or having little energy: not at all 5. Poor appetite or overeating: not at all 6. Feeling bad about yourself - or that you are a failure or have let yourself or your family down: not at all 7. Trouble concentrating on things, such as reading the newspaper or watching television: not at all 8. Moving or speaking so slowly that other people could have noticed. Or the opposite - being so fidgety or restless that you have been moving around a lot more than usual: not at all 9. Thoughts that you would be better off or of hurting yourself in some way: not at all Total score: 0 Depression Screening Interpretation: Negative Depression Screening Done: Yes Source: Developed by Drs. Dionicio Alvarez, Lucía Rosado, Jairon Felix and colleagues, with an educational saulo from [employer] Thrive Questionnaire Date Thrive assessed: 01/26/25 I am a: Patient What is your living situation today?: I have a steady place to live Within the past 12 months, did the food you bought not last and you didn't have the money to get more?: Never true Within the past 12 months, did you worry whether your food would run out before you got money to buy more?: Never true Do you have trouble paying for medicines?: No Do you have trouble getting transportation to medical appointments?: No Do you have trouble paying your heating and electricity bill?: No Do you have trouble taking care of your child, family member or friend?: No Do you have trouble with day-to-day activities such as bathing, preparing meals, shopping, managing finances, etc.?: No Are you currently unemployed and looking for a job?: No Are you interested in more education?: No Please select the resources that you would like help with: None Currently or been in a relationship where the following occur: No concerns reported THRIVE Score: 0 AUDIT C Alcohol Use Questionnaire (AUDIT-C) 2. How many drinks containing alcohol do you have on a typical day when you are drinking?: 1 or 2 3. How often do you have six or more drinks on one occasion?: Never Total Score: 0 DOMINIC-7 AMB Questionnaire DOMINIC-7 Date DOMINIC - 7 assessed: 01/26/25 Feeling nervous, anxious, or on edge: 0 = Not at all Not being able to stop or control worryin = Not at all Worrying too much about different things: 0 = Not at all Trouble relaxin = Not at all Being so restless that it is hard to sit still: 0 = Not at all Becoming easily annoyed or irritable: 0 = Not at all Feeling afraid as if something awful might happen: 0 = Not at all Total DOMINIC-7 score (0-4 normal; 5-9 mild; 10-14 moderate; 15-21 severe): 0 Source: Developed by Lucía Valenzuela, Jairon Felix and colleagues, with an educational saulo from [employer] Review of Systems Const Denies body aches, Denies chills, Denies fever(s), Denies headache(s) and Denies poor appetite Eyes Reports no additional complaints ENT Denies dizziness and Denies headache(s) Card Denies chest pain, Denies lightheadedness and Denies dyspnea Resp Denies dyspnea GI Reports no additional complaints Reports no additional complaints Musc Reports no additional complaints and Denies abnormal gait Skin/Breast Reports system reviewed and no additional complaints, except as documented Neuro Denies abnormal gait, Denies dizziness and Denies headache(s) Psych Reports no additional complaints Physical exam (Primary Care) Vital Signs: Last Vital Signs Temp 97.1 F 01/26/25 15:32 Pulse 94 01/26/25 16:15 BP 130/80 01/26/25 15:32 Pulse Ox 96 01/26/25 15:32 Oxygen Delivery Method Room Air 01/26/25 15:32 BMI result Body Mass Index 30.9 Tobacco/Smoking Status: Tobacco use Status Tobacco use date assessed 01/26/25 01/26/25 15:41 Patient Tobacco Use Status Former Tobacco user 01/26/25 15:41 e-Cigarette/Vaping Use Currently Using 01/26/25 15:41 PHQ-9: PHQ-9 Score PHQ-9: Total score 0 01/26/25 15:57 Depression Screening Interpretation: Negative Thrive Assessment: Date of Thrive Assessment Date Thrive assessed 01/26/25 01/26/25 15:41 Currently or been in a relationship where the following occur: No concerns reported Const General: cooperative, healthy appearing, comfortable and no acute distress Orientation/consciousness: patient oriented x3 HENMI Head: Yes normocephalic Ears: hearing grossly normal bilaterally General nose exam: Normal external nose present Eyes General: appearance normal, both eyes and all related structures Conjunctivae: conjunctivae normal Neck Neck: Yes full ROM and Yes no lymphadenopathy Resp Effort & Inspection: normal respiratory effort Auscultation: clear to auscultation bilaterally, no crackles, no rales, no rhonchi and no wheezes Cardio Rate: regular rate Rhythm: regular rhythm Skin General skin exam: no rashes or lesions noted Neuro General: patient oriented x3 Gait exam (Neuro): Normal gait present Extrem General: Yes normal to inspection, Yes full ROM and No edema Psych Affect: normal affect Attitude: cooperative Insight: Good insight present (Psych) Judgement: Good judgement present (Psych) Coding Level of Care Code Est Pt Level 3 (13429) Diagnoses Sleep disorder G47.9 Mild late onset Alzheimer's dementia without behavioral disturbance, psychotic disturbance, mood disturbance, or anxiety G30.1; F02.A0 Alzheimer's disease onset: late onset Dementia behavioral or psychological symptom: without behavioral, psychotic, or mood disturbance or anxiety Dementia severity: mild Hypertension I10 Simple chronic bronchitis J41.0 COPD type: chronic bronchitis Chronic bronchitis type: simple Assessment & Plan Assessment & Plan (1) Sleep disorder: Comment: snoring, hypersomnia Code(s): G47.9 - Sleep disorder, unspecified Category: Medical Plan: Currently undergoing workup and treatment with her neurologist. (2) Alzheimer dementia: Code(s): G30.9 - Alzheimer's disease, unspecified; F02.80 - Dementia in other diseases classified elsewhere, unspecified severity, without behavioral disturbance, psychotic disturbance, mood disturbance, and anxiety Category: Medical Qualifiers: Alzheimer's disease onset: late onset Dementia behavioral or psychological symptom: without behavioral, psychotic, or mood disturbance or anxiety Dementia severity: mild Qualified Code(s): G30.1 - Alzheimer's disease with late onset; F02.A0 - Dementia in other diseases classified elsewhere, mild, without behavioral disturbance, psychotic disturbance, mood disturbance, and anxiety Plan: Continue to follow with neurologist. Currently on Leqembi injections every 4 weeks. (3) Hypertension: Code(s): I10 - Essential (primary) hypertension Category: Medical Plan: Continue on current blood pressure medication. Avoid salt intake and encourage healthy diet and regular exercise. (4) COPD (chronic obstructive pulmonary disease): Code(s): J44.9 - Chronic obstructive pulmonary disease, unspecified Category: Medical Qualifiers: COPD type: chronic bronchitis Chronic bronchitis type: simple Qualified Code(s): J41.0 - Simple chronic bronchitis Plan: Continue with albuterol as needed. Plan Management of Alzheimer's Disease under the care of her neurologist continues with [facility]. Alternative treatments for mild Obstructive Sleep Apnea outside of CPAP are considered due to comfort concerns. COPD symptoms are controlled with an as-needed albuterol inhaler. A ketogenic diet and intermittent fasting are in place for weight management, with her current weight recorded at 180 pounds. Blood pressure control is satisfactory as observed, with a follow-up in six months recommended. Monitoring of cholesterol levels is planned. This note was constructed using voice recognition software. While every effort has been made to ensure accuracy and chief of staff doctor, still areas may have been included sometimes these areas may affect the content or meeting of the given symptoms. Total time spent caring for the patient today was 20 minutes. This includes time spent before the visit reviewing the chart, time spent during the visit, and time spent after the visit and documentation. Patient was informed and verbally consented to the use of an ambient scribe for clinic note documentation during this visit. Orders: Orders Lipid Panel 6 Months E78.00 - Pure hypercholesterolemia, unspecified
[2025-01-26 15:32] VITALS: BP 130/80; PULSE 107; TEMP 36.2; O2SAT 96; BMI 30.9
[2025-01-26 16:15] VITALS: PULSE 94
--- OUTSIDE RECORDS SUMMARY | 2025-01-26 17:25 | XMS_ITS | Clinical Summary ---
Author Organization [facility] Address [address] [place] [id number] Phone Care Team Providers Care Senior Network Security Architect Name Role Phone Keira Albright MD Primary Care Provider [phone] Allergies No known active allergies Medications atorvastatin [...] (10/15/2024): Seen Dr Ortez and follows with [facility] Pain mangement- Dr Brooks HTN (hypertension) 07/30/2017 Hyperlipidemia 07/30/2017 Microhematuria 07/30/2017 Overview (10/15/2024): Follows with Dr Carter annually Encounters Date Type Department Care Team Description 12/19/2024 12:01 PM EST - 12/19/2024 11:59 PM EST Hospital Encounter [facility] PET Scan [address] [place] [address] Alzheimer's disease, unspecified (CODE) ([facility]) Discharge Disposition: Home or Self Care from [...] HISTORICAL COLONOSCOPY OTHER SURGICAL HISTORY 11/2018 PROCEDURE: [place] TRANSPEDICULAR DCMPRN SPINAL CORD 1 SEG LUMBAR; COMMENT: tlif- Dr Ortez Medical History Medical History Date Comments Hyperlipidemia 07/30/2017 DX:Hyperlipidemi a HTN (hypertension) 07/30/2017 DX:HTN (hyper tension) Major depression 07/30/2017 DX:Major depres kenia; COMMENT: Follows with Queenie Castelinous Degenerative disc disease, lumbar 07/30/2017 DX:Degenerative disc disease, lumbar; COMMENT: Seen Dr Ortez and follows with [facility] Microhematuria 07/30/2017 DX:Microhematuri a; COMMENT: [...] 2:05 PM EST Alzheimer's disease, unspecified (CODE) ([facility]) ANNUAL BMP BLOOD TEST Routine 04/02/2024 LIPID [...] Signed Date: 12/26/2024 04:00 ET Workstation ID: [id number] Transcribed By: Self Edit Transcribed Date: 12/22/2024 [...] Signed Date: 12/26/2024 04:00 ET Workstation ID: [id number] Transcribed By: Self Edit Transcribed Date: 12/22/2024 11:34 ET Result [facility] Мария Perdomo MD IMG NM PROCEDURES Final Result * Annual BMP Blood Test (04/02/2024) Pathologist [facility] Annual BMP Blood Test abstracted Result [facility] Historical Provider HEALTH MAINTENANCE Final Result * (ABNORMAL) Lipid panel (04/02/2024) [facility] LDL/HDL Ratio 3 0 - 4 Triglycerides 183(A) 0 - 150 mg/dL Cholesterol 214(A) 0 - 200 mg/dL HDL 67 >=40 mg/dL LDL Cholesterol 111(A) 0 - 100 mg/dL Blood Venous blood specimen / Unknown Result [facility] Provider LAB BLOOD ORDERABLES Shannon l Result * Falls Risk Assessment (02/11/2024) [facility] Falls Risk Assessment abstracted Result [facility] Provider HEALTH MAINTENANCE Final Result * [...] (World Health Organization Fracture Risk Assessment) [facility] Department of Internal Medicine recommends using National [...] alternative screening schedule based on yandy Sanchez., [facility] November 16, 2011 for patients [...] years. (World HealthOrganization Fracture Risk Assessment) [facility] Department of Internal Medicine recommendsusing National Osteoporosis [...] Final Result * Hepatitis C Screening (07/30/2017) [facility] Hepatitis C Screening abstracted Historical Provider HEALTH MAINTENANCE Final Result from Last 3 Months or Most Recently Relevant to Health Maintenance Insurance MEDICARE Care Teams Senior Network Security Architect Relationship Specialty Start Date End Date Keiar Albright MD [address] [place] [id number] PCP - General Internal Medicine 09/05/21
== END 2025-01-26 16:25 | disposition home or self-care (01) ==
LOC: HO.HMCH 15:25
DX: G47.9 Sleep disorder, unspecified (principal); G30.1 Alzheimer's disease with late onset; F02.A0 Dementia in other diseases classified elsewhere, mild, without behavioral disturbance, psychotic disturbance, mood disturbance, and anxiety; J41.0 Simple chronic bronchitis; I10 Essential (primary) hypertension

== ENCOUNTER → 2025-01-26 15:24 | Outpatient (BNVA) | payer MEDICARE, SELFPAY | DX: I10 Essential (primary) hypertension (principal); G30.1 Alzheimer's disease with late onset; F02.A0 Dementia in other diseases classified elsewhere, mild, without behavioral disturbance, psychotic disturbance, mood disturbance, and anxiety; E78.00 Pure hypercholesterolemia, unspecified; G47.33 Obstructive sleep apnea (adult) (pediatric); E66.9 Obesity, unspecified; J41.0 Simple chronic bronchitis; Z68.30 Body mass index [BMI] 30.0-30.9, adult; Z99.89 Dependence on other enabling machines and devices | CPT/HCPCS: 96127; 99212 ==

== ENCOUNTER 2025-02-12 12:48 | Outpatient (AMB) | payer MEDICARE, SELFPAY ==
--- NOTE | 2025-02-12 12:50 | A.OFFVIS_ITS ---
Vital Signs 3 02/12/25 13:02 Height 5 ft 4 in Weight 181 lb 3.52 oz BMI 31.1 BP 138/63 Blood Pressure Location Rt brachial Position Sitting Pulse 92 Intake Visit Reasons: Colonoscopy Screening Intake Note: Patient in office today for colonoscopy screening. CC: Patient reports that for the last year or so her stools are narrower and softer. Agricultural Systems Specialist Required: No Accompanied by: Self / Same As Patient Allergies No Known Allergies Allergy (Verified 02/12/25 13:05) HPI HPI Colonoscopy Screening: Details: 74-year-old female here for preprocedural meeting to discuss a screening colonoscopy. She is referred by Jenifer Sevilla. PMX COPD Hypertension High cholesterol Alzheimer's dementia Depression with anxiety * SURGICAL HISTORY Spinal fusion x 2 lumbar Breast augmentation Colonoscopy Hysterectomy Tonsillectomy * ALLERGIES: NKDA * [employer] LABS: Laboratory Tests 10/06/24 14:08 WBC 6.5 Hgb 15.6 Hct 45.3 Plt Count 365 Estimated GFR > 60 Total Bilirubin 0.4 AST 22 ALT 31 Alkaline Phosphatase 100 TSH 2.18 TODAY'S VISIT She has had 2 prior colonoscopies at [facility]. She admits she has memory problems ( I have Alzheimers ) and she is unsure if she had any polyps. Her family history is unclear as her parents in their early 50's - none in siblings. For the past 1-2 years her stooling has changed to softer and looks like snakes but she denies any abdominal pain, rectal bleeding or alarm sx. She denies any upper abd problems Her COPD is well controlled and she denies cardiac problems. No prior problems with anesthesia and sedation. No ID problems. Uncertain about her past colonoscopy results or parents history. [facility] Medical History History of anxiety History of depression Annual physical exam Colon cancer screening Medicare annual wellness visit, initial Sleep disorder Pulmonary nodules Hypercholesteremia COPD (chronic obstructive pulmonary disease) Hypertension Surgical History H/O spinal fusion History of back surgery Hx of breast augmentation Hx of colonoscopy Hx of hysterectomy Family History Father Lung cancer Mother Brain aneurysm Social History Housing: House Alcohol intake: current Alcohol intake frequency: a few times a month Patient Tobacco Use Status: Former Tobacco user e-Cigarette/Vaping Use: Currently Using Second Hand Smoke Exposure: Yes service: No Current occupational status: retired Cognitive needs: No Hearing needs: No Vision needs: No Review of Systems Const Denies fatigue, Denies fever(s), Denies night sweats, Denies poor appetite and Denies weight loss ENT Reports Normal hearing present, Denies dental pain, Denies dysphagia, Denies hearing loss, Denies mouth pain, Denies odynophagia, Denies throat swelling, Denies tongue swelling and Reports other (Dentition adequate) Card Reports no additional complaints Resp Reports no additional complaints GI Details: Denies abdominal pain, Denies melena, Denies bloating, Denies hematochezia, Denies constipation, Denies GI cramping, Denies dysphagia, Denies excessive flatus, Denies early satiety, Denies heartburn, Denies diarrhea, Denies nausea, Denies odynophagia, Denies vomiting and Denies hematemesis Skin/Breast Denies pruritus, Denies lesions, Denies rash and Denies jaundice Neuro Reports Normal hearing present and Denies Abnormal speech present Endo Denies fatigue Aller/Immun Denies throat swelling and Denies tongue swelling Physical Exam Vital Signs: Last Vital Signs Pulse 92 02/12/25 13:02 BP 138/63 02/12/25 13:02 BMI result Body Mass Index 31.1 Const General: cooperative, no acute distress, well developed and well groomed Nutritional Appearance: well nourished and obese Orientation/consciousness: oriented to person, oriented to place and oriented to time Limitations: No language barrier HEENT Head: Yes normocephalic and Yes atraumatic Eyes General: appearance normal, both eyes and all related structures Pupils: Equal, round and reactive pupils present Neck Neck: Yes normal visual inspection and Yes no lymphadenopathy Thyroid: Thyroid normal Resp Effort & Inspection: normal respiratory effort and able to speak in complete sentences Auscultation: clear to auscultation bilaterally Cardio Rate: regular rate Rhythm: regular rhythm Heart sounds: Normal, physiologic split S2 sound present Peripheral pulses: radial pulses present and posterior tibial pulses present GI Inspection: No distended, No Abdominal panniculus present and Yes obesity Palpation (GI): Soft to palpation, nontender, no guarding, not rigid and No hepatosplenomegaly present Percussion: Yes normal to percussion Auscultation: normal bowel sounds Rectal Exam - Female: deferred Abdomen image: 2 1. surgical scars 2. Skin General skin exam: no rashes or lesions noted, dry skin, no jaundice, No spider nevi and no striae Rashes: no rashes Nails: normal Neuro General: oriented to person, oriented to place and oriented to time Cranial nerves: Yes Equal, round and reactive pupils present and Yes Normal hearing present Speech: No Abnormal speech present Extrem General: Yes normal to inspection, No clubbing, No cyanosis and No edema Psych Appearance: grossly normal and well kempt Mental Status: mental status grossly normal Speech and movement: Normal speech and movement present Affect: normal affect Attitude: cooperative Thought process: Normal thought process present and not confabulating Thought content: Normal thought content present Insight: Good insight present (Psych) Judgement: Good judgement present (Psych) Assessment & Plan Assessment & Plan (1) Pre-op examination: Code(s): Z01.818 - Encounter for other preprocedural examination Category: Medical (2) COPD (chronic obstructive pulmonary disease): Code(s): J44.9 - Chronic obstructive pulmonary disease, unspecified Category: Medical Qualifiers: COPD type: chronic bronchitis Chronic bronchitis type: simple Q ualified Code(s): J41.0 - Simple chronic bronchitis Plan She has had 2 prior colonoscopies at [facility]. She admits she has memory problems ( I have Alzheimers ) and she is unsure if she had any polyps. Her family history is unclear as her parents in their early 50's - none in siblings. For the past 1-2 years her stooling has changed to softer and looks like snakes but she denies any abdominal pain, rectal bleeding or alarm sx. She denies any upper abd problems Her COPD is well controlled and she denies cardiac problems. No prior problems with anesthesia and sedation. No ID problems. Uncertain about her past colonoscopy results or parents history. Coding Level of Care Code New Pt Level 3 (20945) Diagnoses Pre-op examination Z01.818 Simple chronic bronchitis J41.0 COPD type: chronic bronchitis Chronic bronchitis type: simple
[2025-02-12 13:02] VITALS: BP 138/63; PULSE 92; BMI 31.1
--- OUTSIDE RECORDS SUMMARY | 2025-02-12 15:36 | XMS_ITS | Clinical Summary ---
Author Organization [facility] Address [address] [place] [id number] Phone Care Team Providers Care Prenatal Teacher Name Role Phone Keira Albright MD Primary Care Provider [phone] Allergies No known active allergies Medications atorvastatin [...] Date 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/2024 Alzheimer disease ([facility] V24, [facility] V28) Cardiac murmur 02/11/2024 Cognitive impairment 08/10/2023 Lumbar spondylosis 08/10/2023 Ascending aorta dilatation ([facility] V24) 023 Overview (10/15/2024): 3.4 cm Mild episode of recurrent ma denny depressive disorder ([facility] V24) 08/20/2019 Ovarian cyst, right 03/18/2018 Overview (10/15/2024): 03/12/18 4.4 x 3.2 cm, recommend 1 year f/u Lung nodule 09/26/2017 Osteopenia 09/26/2017 Bipolar disorder ([facility] V24, [facility] V28) 11/2016 Overview (10/15/2024): Follows with Queenie Valdivia Degenerative disc disease, lumbar 07/30/2017 Overview (10/15/2024): Seen Dr Ortez and follows with [facility] Pain mangement- Dr Brooks HTN (hypertension) 07/30/2017 Hyperlipidemia 07/30/2017 Microhematuria 07/30/2017 Overview (10/15/2024): Follows with Dr Carter annually Encounters Date Type Department Care Team Description 12/19/2024 12:01 PM EST - 12/19/2024 11:59 PM EST Hospital Encounter [facility] PET Scan [address] [place] [address] Alzheimer's disease, unspecified (CODE) ([facility] V24, [facility] V28) Discharge Disposition: Home or Self Care from [...] HISTORICAL COLONOSCOPY OTHER SURGICAL HISTORY 11/2018 PROCEDURE: [place] TRANSPEDICULAR DCMPRN SPINAL CORD 1 SEG LUMBAR; COMMENT: tlif- Dr Ortez Medical History Medical History Date Comments Hyperlipidemia 07/30/2017 DX:Hyperlipidemi a HTN (hypertension) 07/30/2017 DX:HTN (hyper tension) Major depression 07/30/2017 DX:Major depres kenia; COMMENT: Follows with Queenie Valdivia Degenerative disc disease, lumbar 07/30/2017 DX:Degenerative disc disease, lumbar; COMMENT: Seen Dr Ortez and follows with [facility] Pain mangement Microhematuria 07/30/2017 DX:Microhematuri a; [...] Vaccines (1 of 2) 2002 RSV Immunization Adult Patients (1 - Risk 60-74 years 1-dose series) 2012 Colorectal Cancer Screening: Colonoscopy 10/07/2022 Depression Screening 10/07/2022 Social Influencers of Health Screening 10/07/2022 COVID-19 Vaccine (4 - 2023-2 5 season) 2024 09/30/2021, 01/23/2021, 12/26/2020 Falls Risk Assessment 02/10/2025 02/11/2024 Hypertension/CHF/CAD Annual BMP Blood Test 04/02/2025 04/02/2024, 04/02/2024 Influenza Vaccine (Season Ended) 2025 08/10/2023, 10/03/2021 Medicare Annual Wellness Visit 09/08/2025 09/08/2024 DTaP,Tdap,and [...] age to complete this topic Meningococcal B Vaccine Aged Out No l onger eligible based on patient's age to complete [...] 2:05 PM EST Alzheimer's disease, unspecified (CODE) ([facility] V24, [facility] V28) ANNUAL BMP BLOOD TEST Routine 04/02/2024 LIPID [...] Signed Date: 12/26/2024 04:00 ET Workstation ID: [id number] Transcribed By: Self Edit Transcribed Date: 12/22/2024 [...] Signed Date: 12/26/2024 04:00 ET Workstation ID: [id number] Transcribed By: Self Edit Transcribed Date: 12/22/2024 11:34 ET Result [facility] Мария Perdomo MD IMG NM PROCEDURES Final Result * Annual BMP Blood Test (04/02/2024) Pathologist [facility] Annual BMP Blood Test abstracted Result [facility] Historical Provider HEALTH MAINTENANCE Final Result * (ABNORMAL) Lipid panel (04/02/2024) [facility] LDL/HDL Ratio 3 0 - 4 Triglycerides 183(A) 0 - 150 mg/dL Cholesterol 214(A) 0 - 200 mg/dL HDL 67 >=40 mg/dL LDL Cholesterol 111(A) 0 - 100 mg/dL Blood Venous blood specimen / Unknown Result [facility] Historical Provider LAB BLOOD ORDERABLES Shannon l Result * Falls Risk Assessment (02/11/2024) [facility] Falls Risk Assessment abstracted Result [facility] Historical Provider HEALTH MAINTENANCE Final Result * DXA [...] (World Health Organization Fracture Risk Assessment) [facility] Department of Internal Medicine recommends using National [...] alternative screening schedule based on yandy Sanchez., [facility] November 16, 2011 for patients with osteopenia [...] years. (World HealthOrganization Fracture Risk Assessment) [facility] Department of Internal Medicine recommendsusing National Osteoporosis [...] FRAX. Optional alternative screening schedule based on david Sanchez al., NEJMJanuary 2011 for patients with osteopenia (based on hip BMD T-score) is as follows: * advanced osteopenia (T scores -2.00 to -2.49), BMD testing every year * moderate osteopenia (T scores -1.50 to -1.99), BMD testing every 5years mild osteopenia or normal BMD (T scores -1.50 and higher), BMD testingevery 15 years us Bon [facility] IMG DXA PROCEDURES Final Result * Hepatitis C Screening (07/30/2017) Hepatitis C Screening abstracted Historical Provider HEALTH MAINTENANCE Final Result from Last 3 Months or Most Recently Relevant to Health Maintenance Insurance MEDICARE Care Teams Prenatal Teacher Relationship Specialty Start Date End Date Keira Albright MD [address] [place] [phone] PCP - General Internal Medicine 09/05/21
== END 2025-02-12 13:53 | disposition home or self-care (01) ==
PROVIDERS: Visit Provider Nurse Practitioner
DX: Z01.818 Encounter for other preprocedural examination (principal); Z12.11 Encounter for screening for malignant neoplasm of colon; J41.0 Simple chronic bronchitis
CPT/HCPCS: 99024

== ENCOUNTER → 2025-02-12 12:48 | Outpatient (BNVA) | payer MEDICARE, SELFPAY | PROVIDERS: Visit Provider Nurse Practitioner | DX: Z01.818 Encounter for other preprocedural examination (principal); J41.0 Simple chronic bronchitis | CPT/HCPCS: 99212 ==

== ENCOUNTER 2025-02-26 13:57 | Outpatient (REF) | payer MEDICARE, SELFPAY ==
--- NOTE | ~2025-02-26 | MR_ITS ---
EXAMINATION: MR BRAIN WITHOUT CONTRAST CLINICAL INFORMATION: Unspecified dimension. COMPARISON: May 16, 2024. TECHNIQUE: MRI of the brain was obtained using routine sequences without contrast. FINDINGS: No restricted diffusion. No signal abnormality or gross volume loss in the hippocampi. Bilateral multifocal punctate deep periventricular white matter hyperintense T2 FLAIR signal. Prominence of the extra-axial CSF spaces, cerebral sulci and ventricles. Old lacunar infarcts, basal ganglia and cerebellum. Flow-void signal within the cerebral vessels is normal. Sellar/suprasellar region demonstrated no gross signal abnormality or masses. Craniocervical junction is intact and normal. MR/MR head/brain wo con IMPRESSION: Global cerebral atrophy. White matter disease and or lacunar infarcts suggesting small vessel occlusive disease. No acute brain abnormality. Electronically signed by: Raad Jacques MD 02/26/2025 03:54 PM EDT
--- OUTSIDE RECORDS SUMMARY | 2025-02-26 16:14 | XMS_ITS | Clinical Summary ---
Author Organization [facility] Address [address] [place] [phone] Phone Care Team Providers Care Basket Weaver Name Role Phone Keira Albright MD Primary Care Provider [phone] Allergies No known active allergies Medications atorvastatin [...] Date 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/2024 Alzheimer disease ([facility] V24, [facility] V28) Cardiac murmur 02/11/2024 Cognitive impairment 08/10/2023 Lumbar spondylosis 08/10/2023 Ascending aorta dilatation ([facility] V24) 023 Overview (10/15/2024): 3.4 cm Mild episode of recurrent ma denny depressive disorder ([facility] V24) 08/20/2019 Ovarian cyst, right 03/18/2018 Overview (10/15/2024): 03/12/18 4.4 x 3.2 cm, recommend 1 year f/u Lung nodule 09/26/2017 Osteopenia 09/26/2017 Bipolar disorder ([facility] V24, [facility] V28) 11/2016 Overview (10/15/2024): Follows with Queenie Valdivia Degenerative disc disease, lumbar 07/30/2017 Overview (10/15/2024): Seen Dr Ortez and follows with [facility] Pain mangement- Dr Brooks HTN (hypertension) 07/30/2017 Hyperlipidemia 07/30/2017 Microhematuria 07/30/2017 Overview (10/15/2024): Follows with Dr Carter annually Encounters Date Type Department Care Team Description 12/19/2024 12:01 PM EST - 12/19/2024 11:59 PM EST Hospital Encounter [facility] PET Scan [address] [place] [address] Alzheimer's disease, unspecified (CODE) ([facility] V24, [facility] V28) Discharge Disposition: Home or Self Care [...] HISTORICAL COLONOSCOPY OTHER SURGICAL HISTORY 11/2018 PROCEDURE: [place] TRANSPEDICULAR DCMPRN SPINAL CORD 1 SEG LUMBAR; COMMENT: tlif- Dr Ortez Medical History Medical History Date Comments Hyperlipidemia 07/30/2017 DX:Hyperlipidemi a HTN (hypertension) 07/30/2017 DX:HTN (hyper tension) Major depression 07/30/2017 DX:Major depres kenia; COMMENT: Follows with Queenie Valdivia Degenerative disc disease, lumbar 07/30/2017 DX:Degenerative disc disease, lumbar; COMMENT: Seen Dr Ortez and follows with [facility] Pain mangement Microhematuria 07/30/2017 DX:Microhematuri a; [...] 2:05 PM EST Alzheimer's disease, unspecified (CODE) ([facility] V24, [facility] V28) ANNUAL BMP BLOOD TEST Routine 04/02/2024 [...] Signed Date: 12/26/2024 04:00 ET Workstation ID: [id number] Transcribed By: Self Edit Transcribed Date: 12/22/2024 [...] Signed Date: 12/26/2024 04:00 ET Workstation ID: [id number] Transcribed By: Self Edit Transcribed Date: 12/22/2024 11:34 ET Result [facility] Мария Perdomo MD IMG NM PROCEDURES Final Result * Annual BMP Blood Test (04/02/2024) Pathologist [facility] Annual BMP Blood Test abstracted Result [facility] Historical Provider HEALTH MAINTENANCE Final Result * (ABNORMAL) Lipid panel (04/02/2024) [facility] LDL/HDL Ratio 3 0 - 4 Triglycerides 183(A) 0 - 150 mg/dL Cholesterol 214(A) 0 - 200 mg/dL HDL 67 >=40 mg/dL LDL Cholesterol 111(A) 0 - 100 mg/dL Blood Venous blood specimen / Unknown Result [facility] Historical Provider LAB BLOOD ORDERABLES Shannon l Result * Falls Risk Assessment (02/11/2024) [facility] Falls Risk Assessment abstracted Result [facility] Historical Provider HEALTH MAINTENANCE Final Result * [...] (World Health Organization Fracture Risk Assessment) [facility] Department of Internal Medicine recommends using [...] alternative screening schedule based on yandy Sanchez., [facility] November 16, 2011 for patients [...] years. (World HealthOrganization Fracture Risk Assessment) [facility] Department of Internal Medicine recommendsusing National [...] to Health Maintenance Insurance MEDICARE Care Teams Basket Weaver Relationship Specialty Start Date End Date Keira Albright MD [address] [place] [id number] PCP - General Internal Medicine 09/05/21
== END 2025-02-26 13:58 | disposition home or self-care (01) ==
LOC: HO.MRI 13:57
PROVIDERS: Visit Provider Psychiatry & Neurology Neurology
DX: Z79.899 Other long term (current) drug therapy (principal); F03.90 Unspecified dementia, unspecified severity, without behavioral disturbance, psychotic disturbance, mood disturbance, and anxiety
CPT/HCPCS: 70551

== ENCOUNTER → 2025-02-26 13:57 | Outpatient (BNV) | payer MEDICARE, SELFPAY | PROVIDERS: Visit Provider Radiology Diagnostic Radiology | DX: G31.89 Other specified degenerative diseases of nervous system (principal) | CPT/HCPCS: 70551 ==

== ENCOUNTER 2025-05-11 15:25 | Outpatient (AMB) | payer MEDICARE, SELFPAY ==
--- NOTE | 2025-05-11 15:27 | MHC.OFFVIS ---
Vital Signs 05/11/25 15:29 Weight 182 lb BP 130/84 Blood Pressure Location Rt brachial Position Sitting Pulse 109 H Pulse Oximetry (%) 93 Oxygen Delivery Method Room Air Intake Visit Reasons: 4mon follow-up Intake Note: Patient presents for follow up brain MRI done 02/26/25 Skilled Nursing Facilities Professional Required: No Accompanied by: Spouse Allergies No Known Allergies Allergy (Verified 05/11/25 15:27) HPI Comments Details: 74y/o female with ALzheimers dementia in Nov 2023 . She had LP positive for AD Her recent AMyvid scan was positive. SHe was started on Leqembi January 2024 and is production control scheduler for infusion tomorrow . No change . denies any side effects .she notices mild worsening of word retrieval issues. History from initial visit- During her PCP visit in Jul 2023 - she had some issues with cognitive testing. SHe was referred to Dr. Leung - MRI showed some Global volume loss with temperoparietal predominance. He did LP and started her on leqembi. Her MRI brain has been stable with no evidence of ARIA. Her only issues she has is occasional word retrieval issues. she has h/o depression and anxiety? Bipolar - stable on medications. [facility] Medical History History of anxiety History of depression Annual physical exam Colon cancer screening Medicare annual wellness visit, initial Sleep disorder Pulmonary nodules Hypercholesteremia COPD (chronic obstructive pulmonary disease) Hypertension Surgical History H/O spinal fusion History of back surgery Hx of breast augmentation Hx of colonoscopy Hx of hysterectomy Family History Father Lung cancer Mother Brain aneurysm Social History Housing: House Alcohol intake: current Alcohol intake frequency: a few times a month Patient Tobacco Use Status: Former Tobacco user e-Cigarette/Vaping Use: Currently Using Second Hand Smoke Exposure: Yes service: No Current occupational status: retired Cognitive needs: No Hearing needs: No Vision needs: No Physical Exam Vital Signs: Last Vital Signs Pulse 109 H 05/11/25 15:29 BP 130/84 05/11/25 15:29 Pulse Ox 93 05/11/25 15:29 Oxygen Delivery Method Room Air 05/11/25 15:29 Const General: cooperative, healthy appearing, no acute distress and anxious Nutritional Appearance: obese Orientation/consciousness: oriented to person, oriented to place and oriented to time Eyes Pupils: Equal, round and reactive pupils present Neuro Other: antalgic gait General: oriented to person, oriented to place, oriented to time, moves all extremities and no focal motor deficits Cranial nerves: Yes Facial sensation intact/muscles of mastication intact, Yes Equal, round and reactive pupils present, Yes Bilaterally intact EOM present, Yes Nystagmus not present, Yes Normal facial strength present, Yes Midline tongue present and Yes Ability to bilaterally elevate shoulders present Cognition (Neuro): abnormal cognition Gait exam (Neuro): Antalgic gait present Coordination: [id number] test normal Assessment & Plan Assessment & Plan (1) Alzheimer dementia: Code(s): G30.9 - Alzheimer's disease, unspecified; F02.80 - Dementia in other diseases classified elsewhere, unspecified severity, without behavioral disturbance, psychotic disturbance, mood disturbance, and anxiety Category: Medical Qualifiers: Alzheimer's disease onset: late onset Dementia severity: mild Dementia behavioral or psychological symptom: without behavioral, psychotic, or mood disturbance or anxiety Qualified Code(s): G30.1 - Alzheimer's disease with late onset; F02.A0 - Dementia in other diseases classified elsewhere, mild, without behavioral disturbance, psychotic disturbance, mood disturbance, and anxiety (2) Sleep disorder: Comment: snoring, hypersomnia Code(s): G47.9 - Sleep disorder, unspecified Category: Medical Plan Continue LEQEMBI infusions . Discussed about engaging in cognitively stimulating activities Home sleep test was inconclusive Coding Level of Care Code Est Pt Level 4 (37537) Complex EM visit Add On G2211 Diagnoses Mild late onset Alzheimer's dementia without behavioral disturbance, psychotic disturbance, mood disturbance, or anxiety G30.1; F02.A0 Alzheimer's disease onset: late onset Dementia severity: mild Dementia behavioral or psychological symptom: without behavioral, psychotic, or mood disturbance or anxiety Sleep disorder G47.9
[2025-05-11 15:29] VITALS: BP 130/84; PULSE 109; O2SAT 93
--- OUTSIDE RECORDS SUMMARY | 2025-05-11 16:37 | XMS_ITS | Clinical Summary ---
Author Organization [facility] Address [address] [place] [phone] Phone Care Team Providers Care Needle Loom Operator Name Role Phone Keira Albright MD Primary Care Provider [phone] Allergies No known active allergies Medications atorvastatin [...] Date 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/2024 Alzheimer disease ([facility] V24, [facility] V28) Cardiac murmur 02/11/2024 Cognitive impairment 08/10/2023 Lumbar spondylosis 08/10/2023 Ascending aorta dilatation ([facility] V24) 023 Overview (10/15/2024): 3.4 cm Mild episode of recurrent ma denny depressive disorder ([facility] V24) 08/20/2019 Ovarian cyst, right 03/18/2018 Overview (10/15/2024): 03/12/18 4.4 x 3.2 cm, recommend 1 year f/u Lung nodule 09/26/2017 Osteopenia 09/26/2017 Bipolar disorder ([facility] V24, [facility] V28) 11/2016 Overview (10/15/2024): Follows with Queenie Valdivia Degenerative disc disease, lumbar 07/30/2017 Overview (10/15/2024): Seen Dr Ortez and follows with [facility] Pain mangement- Dr Brooks HTN (hypertension) 07/30/2017 Hyperlipidemia 07/30/2017 Microhematuria 07/30/2017 Overview (10/15/2024): Follows with Dr Carter annually Immunizations Name Administration Dates Next Due Influenza [...] HYSTERECTOMY; COMMENT: in 30s- fibroid BACK SURGERY 1983 PROCEDURE: HISTORICAL BACK SURGERY; COMMENT: L5 herniated disc COLONOSCOPY 11/27/2012 PROCEDURE: HISTORICAL COLONOSCOPY OTHER SURGICAL HISTORY 11/2018 PROCEDURE: [place] TRANSPEDICULAR DCMPRN SPINAL CORD 1 SEG LUMBAR; COMMENT: tlif- Dr Ortez Medical History Medical History Date Comments Hyperlipidemia 07/30/2017 DX:Hyperlipidemi a HTN (hypertension) 07/30/2017 DX:HTN (hyper tension) Major depression 07/30/2017 DX:Major depres kenia; COMMENT: Follows with Queenie Valdivia Degenerative disc disease, lumbar 07/30/2017 DX:Degenerative disc disease, lumbar; COMMENT: Seen Dr Ortez and follows with [facility] Pain mangement Microhematuria 07/30/2017 DX:Microhematuri a; [...] Blood Test 04/02/2025 04/02/2024, 04/02/2024 Influenza Vaccine (#1) 2025 , 10/03/2021 Medicare Annual Wellness Visit 09/08/2025 09/08/2024 [...] Procedure Name Priority Date/Time Associated Diagnosis Comments ANNUAL BMP BLOOD TEST Routine 04/02/2024 LIPID PANEL Routine 04/02/2024 FALLS RISK ASSESSMENT Routine 02/11/2024 DXA BONE DENSITY STUDY 1+ SITS AXIAL SKEL Routine 10/04/2022 11:46 AM EST Other specified disorders of bone density and structure, unspecified site HEPATITIS C SCREENING Routine 07/30/2017 from Last 3 Months or Most Recently Relevant to Health Maintenance Results * Annual BMP Blood Test (04/02/2024) Pathologist Replaced by [facility] Annual BMP Blood Test abstracted [facility] Provider HEALTH MAINTENANCE Final Result * (ABNORMAL) Lipid panel (04/02/2024) Pathologist [facility] LDL/HDL Ratio 3 0 - 4 Triglycerides 183(A) 0 - 150 mg/dL Cholesterol 214(A) 0 - 200 mg/dL HDL 67 >=40 mg/dL LDL Cholesterol 111(A) 0 - 100 mg/dL Blood Venous blood specimen / Unknown [facility] Provider LAB BLOOD ORDERABLES Shannon l Result * Falls Risk Assessment (02/11/2024) Pathologist [facility] Falls Risk Assessment abstracted [facility] Provider HEALTH MAINTENANCE Final Result * DXA BONE DENSITY STUDY 1+ SITS AXIAL SKEL (10/04/2022 11:46 AM EST) Anatomical Region Laterality Modality Bone Densitometr y 08/01/2022 10:2 5 AM EDT Narrative 10/04/2022 6:21 PM EST BONE DENSITY SCAN (DEXA): FINDINGS: Lumbar Spine L1 and L2, L3 and L4 excluded due to presence of spinal fusion hardware. T-score is -0.1. (SD relative to 20-29 y/o adult) Z-score is 1.8. (SD relative to age matched peers) This is considered normal by WHO criteria. Left Hip T-score is -2.1. Z-score is -0.3. This is considered osteopenia by WHO criteria. Comparison exam(s): 11/19/2017. 18.4% loss of lumbar spine bone mineral density and 5.2% loss of left hip bone mineral density, both statistically significant at the 95% confidence level. IMPRESSION: IMPRESSION: Osteopenia by WHO criteria. This patient has a 12% risk of major osteoporotic fracture and a 2.5% risk of hip fracture over the next 10 years. (World Health Organization Fracture Risk Assessment) [facility] Department of Internal Medicine recommends [...] alternative screening schedule based on yandy Sanchez., [facility] November 16, 2011 for patients [...] years. (World HealthOrganization Fracture Risk Assessment) [facility] Department of Internal Medicine recommendsusing [...] C Screening (07/30/2017) Hepatitis C Screening abstracted us Historical Provider HEALTH MAINTENANCE Final Result from Last 3 Months or Most Recently Relevant to Health Maintenance Insurance MEDICARE Care Teams Needle Loom Operator Relationship Specialty Start Date End Date Keira Albright MD [address] [place] [phone] PCP - General Internal Medicine 09/05/21
== END 2025-05-11 16:08 | disposition home or self-care (01) ==
LOC: HO.HSMS 15:26
PROVIDERS: PCP Nurse Practitioner Family; Visit Provider Psychiatry & Neurology Neurology
DX: G30.1 Alzheimer's disease with late onset (principal); F02.A0 Dementia in other diseases classified elsewhere, mild, without behavioral disturbance, psychotic disturbance, mood disturbance, and anxiety; G47.9 Sleep disorder, unspecified
CPT/HCPCS: 99214; G2211

== ENCOUNTER → 2025-05-11 15:25 | Outpatient (BNVA) | payer MEDICARE, SELFPAY | PROVIDERS: PCP Nurse Practitioner Family; Visit Provider Psychiatry & Neurology Neurology | DX: G30.1 Alzheimer's disease with late onset (principal); F02.A0 Dementia in other diseases classified elsewhere, mild, without behavioral disturbance, psychotic disturbance, mood disturbance, and anxiety; G47.9 Sleep disorder, unspecified | CPT/HCPCS: 99212 ==

== ENCOUNTER 2025-07-27 14:22 | Outpatient (AMB) | payer MEDICARE, SELFPAY ==
--- NOTE | 2025-07-27 14:28 | A.OFFPC_ITS ---
Vital Signs 07/27/25 14:29 Height 5 ft 4 in Weight 195 lb 4 oz BMI 33.5 BP 142/70 H Blood Pressure Location Lt brachial Position Sitting Pulse 88 Pulse Source Pulse Oximeter Temp 97.1 F Temp Source Temporal Artery Scan Pulse Oximetry (%) 96 Oxygen Delivery Method Room Air Intake Visit Reasons: 6 month f/u HTN Intake Note: Patient is here to follow up on HTN. Window Shade Cutter And Mounter Required: No Rim Fire Priming Tool Setter: Not Required per policy Accompanied by: Self / Same As Patient Allergies No Known Allergies Allergy (Verified 07/27/25 14:40) Medication List - Last Reconciled 07/27/25 by Jenifer Sevilla PA-C albuterol sulfate 90 mcg/actuation (Ventolin HFA) 1 inh inhalation QID PRN amlodipine 5 mg PO DAILY atorvastatin 40 mg PO DAILY bupropion HCl SR 150 mg PO QAM desvenlafaxine succinate ER 100 mg PO QAM desvenlafaxine succinate ER 25 mg PO DAILY folic acid 1 mg PO DAILY lamotrigine 150 mg PO BID lecanemab-irmb (Leqembi) 830 mg (8.3 mL) IV Q2W lorazepam 1 mg PO BEDTIME Tobacco use date assessed: 07/27/25 Fall risk assessment: No Falls in past year Last assessed Fall Risk: 07/27/25 Dental Screening Dental Screen Date: 01/26/25 HPI 6 month f/u HTN HPI Details 75-year-old female with past medical his tory of hypercholesterolemia, anxiety, depression, COPD, hypertension, Alzheimer dementia last seen 12/2024 coming in for follow up. In review of the notes, patient was seen by neurology 04/2025 continued on LEQEMBI infusions. She was seen by GI 01/2025 for pre-colono scopy. Presenting with follow-up for Alzheimer's disease and management of hypertension. The patient reports worsening symptoms, particularly with word retrieval, despite ongoing infusions. She has been receiving infusions for about a year and a half, following a diagnosis approximately two years ago. The patient experiences emotional lability, described as a shadow that comes over her, leading to emotional episodes. She has support from her and family, which helps manage her condition. The patient has a history of hypertension, currently managed with amlodipine, which was reduced due to leg swelling. Blood pressure was noted to be elevated during the visit. The patient is advised to monitor her blood pressure at home and report any significant changes. The patient reports significant bloating, particularly at night, and frequent bowel movements. She has been advised to try a diet for irritable bowel syndrome and use simethicone as needed. The patient reports swelling and pain in the left knee, which has been persistent. An x-ray is planned to assess for possible arthritis. The leg swelling was previously managed by reducing amlodipine dosage. [facility] Medical History History of anxiety History of depression Annual physical exam Colon cancer screening Medicare annual wellness visit, initial Sleep disorder Pulmonary nodules Hypercholesteremia COPD (chronic obstructive pulmonary disease) Hypertension Surgical History H/O spinal fusion History of back surgery Hx of breast augmentation Hx of colonoscopy Hx of hysterectomy Family History Father Lung cancer Mother Brain aneurysm Social History Housing: House Alcohol intake: current Alcohol intake frequency: a few times a month Patient Tobacco Use Status: Former Tobacco user e-Cigarette/Vaping Use: Currently Using Second Hand Smoke Exposure: Yes service: No Current occupational status: retired Cognitive needs: No Hearing needs: No Vision needs: No Questionnaire PHQ-9 Over the last 2 weeks, how often have you been bothered by any of the following problems? 1. Little interest or pleasure in doing things: nearly every day 2. Feeling down, depressed, or hopeless: several days Source: Developed by Drs. Dionicio Alvarez, Lucía Rosado, Jairon Felix and colleagues, with an educational saulo from [employer]. Thrive Questionnaire Date Thrive assessed: 01/26/25 DOMINIC-7 AMB Questionnaire DOMINIC-7 Date DOMINIC - 7 assessed: 01/26/25 Source: Developed by Drs. Dionicio Alvarez, Lucía Rosado, Jairon Felix and colleagues, with an educational saulo from [employer]. Review of Systems Const Denies body aches, Denies chills, Denies fever(s) and Denies poor appetite Eyes Reports no additional complaints ENT Denies dizziness Card Denies chest pain, Denies lightheadedness and Denies dyspnea Resp Denies dyspnea GI Denies nausea and Denies vomiting Reports no additional complaints Musc Reports no additional complaints and Denies abnormal gait Skin/Breast Reports system reviewed and no additional complaints, except as documented Neuro Denies abnormal gait and Denies dizziness Psych Reports no additional complaints Physical exam (Primary Care) Vital Signs: Last Vital Signs Temp 97.1 F 07/27/25 14:29 Pulse 88 07/27/25 14:29 BP 142/70 H 07/27/25 14:29 Pulse Ox 96 07/27/25 14:29 Oxygen Delivery Method Room Air 07/27/25 14:29 BMI result Body Mass Index 33.5 Tobacco/Smoking Status: Tobacco use Status Tobacco use date assessed 07/27/25 07/27/25 14:34 Patient Tobacco Use Status Former Tobacco user 07/27/25 14:34 e-Cigarette/Vaping Use Currently Using 07/27/25 14:34 Thrive Assessment: Date of Thrive Assessment Date Thrive assessed 01/26/25 07/27/25 14:34 Const General: cooperative, healthy appearing, comfortable and no acute distress Orientation/consciousness: patient oriented x3 HENMT Head: Yes normocephalic Ears: hearing grossly normal bilaterally General nose exam: Normal external nose present Eyes General: appearance normal, both eyes and all related structures Conjunctivae: conjunctivae normal Neck Neck: Yes full ROM and Yes no lymphadenopathy Resp Effort & Inspection: normal respiratory effort Auscultation: clear to auscultation bilaterally, no crackles, no rales, no rhonchi and no wheezes Cardio Rate: regular rate Rhythm: regular rhythm Skin General skin exam: no rashes or lesions noted Neuro General: patient oriented x3 Gait exam (Neuro): Normal gait present Extrem Other: TTP of medial and lateral joint lines of left knee without calf swelling or tenderness. Mild swelling of the left knee General: Yes normal to inspection, Yes full ROM and No edema Psych Affect: normal affect Attitude: cooperative Insight: Good insight present (Psych) Judgement: Good judgement present (Psych) Coding Level of Care Code Est Pt Level 3 (49585) Diagnoses Sleep disorder G47.9 Mild late onset Alzheimer's dementia without behavioral disturbance, psychotic disturbance, mood disturbance, or anxiety G30.1; F02.A0 Alzheimer's disease onset: late onset Dementia severity: mild Dementia behavioral or psychological symptom: without behavioral, psychotic, or mood disturbance or anxiety Hypertension I10 Simple chronic bronchitis J41.0 COPD type: chronic bronchitis Chronic bronchitis type: simple Bloating R14.0 Left knee pain M25.562 Assessment & Plan Assessment & Plan (1) Sleep disorder: Comment: snoring, hypersomnia Code(s): G47.9 - Sleep disorder, unspecified Category: Medical Plan: Home sleep study was inconclusive. Continue to follow with neurology. (2) Alzheimer dementia: Code(s): G30.9 - Alzheimer's disease, unspecified; F02.80 - Dementia in other diseases classified elsewhere, unspecified severity, without behavioral disturbance, psychotic disturbance, mood disturbance, and anxiety Category: Medical Qualifiers: Alzheimer's disease onset: late onset Dementia severity: mild Dementia behavioral or psychological symptom: without behavioral, psychotic, or mood disturbance or anxiety Qualified Code(s): G30.1 - Alzheimer's disease with late onset; F02.A0 - Dementia in other diseases classified elsewhere, mild, without behavioral disturbance, psychotic disturbance, mood disturbance, and anxiety Plan: Continue to follow with neurologist. Currently on Leqembi injections every 4 weeks. (3) Hypertension: Code(s): I10 - Essential (primary) hypertension Category: Medical Plan: Continue on current blood pressure medication. Avoid salt intake and encourage healthy diet and regular exercise. BLood pressure elevated and continues to have mild leg swelling. Recommend switch to Lisinopril 10mg and follow up in 6 weeks. She will monitor BP at home as well and if exceeds 140/90 to reach out to the office. (4) COPD (chronic obstructive pulmonary disease): Code(s): J44.9 - Chronic obstructive pulmonary disease, unspecified Category: Medical Qualifiers: COPD type: chronic bronchitis Chronic bronchitis type: simple Qualified Code(s): J41.0 - Simple chronic bronchitis Plan: Continue with albuterol as needed. (5) Bloating: Code(s): R14.0 - Abdominal distension (gaseous) Category: Medical Plan: Recommend low FODMAP diet and simethicone OTC. She will also continue to follow up with gastro. (6) Left knee pain: Code(s): M25.562 - Pain in left knee Category: Medical Plan: An x-ray of the left knee is ordered to evaluate for arthritis. The patient is advised to monitor symptoms and report any worsening. Plan This note was constructed using voice recognition software. While every effort has been made to ensure accuracy and azure principal solution specialist, still areas may have been included sometimes these areas may affect the content or meeting of the given symptoms. Total time spent caring for the patient today was 20 minutes. This includes time spent before the visit reviewing the chart, time spent during the visit, and time spent after the visit and documentation. Patient was informed and verbally consented to the use of an ambient scribe for clinic note documentation during this visit. Orders: Orders XR knee LT 2V Today M25.562 - Pain in left knee Medications: New lisinopril 10 mg PO DAILY 90 tabs 0RF Discontinued amlodipine Discontinued Reason: Patient no longer taking 5 mg PO DAILY 90 tabs 0RF
[2025-07-27 14:29] VITALS: BP 142/70; PULSE 88; TEMP 36.2; O2SAT 96; BMI 33.5
--- OUTSIDE RECORDS SUMMARY | 2025-07-27 16:12 | XMS_ITS ---
Author Name [facility] Organization Unknown Care Team Organization Name Specialty Phone Email Start Date End Da te [facility] Alisia Dominguez Primary Care 10/10/2023 06/16/2024 [facility] Bon Hernandez Primary Care 07/05/202306/16 [facility] Keira Albright Primary Care 09/05/2022
--- OUTSIDE RECORDS SUMMARY | 2025-07-27 16:12 | XMS_ITS | Clinical Summary ---
Author Organization [facility] Address [address] [place] [phone] Phone Care Team Providers Care Returns Clerk Name Role Phone Keira Albright MD Primary Care Provider [phone] Allergies No known active allergies Medications atorvastatin [...] Date 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/2024 Alzheimer disease ([facility] V24, [facility] V28) Cardiac murmur 02/11/2024 Cognitive impairment 08/10/2023 Lumbar spondylosis 08/10/2023 Ascending aorta dilatation ([facility] V24) 023 Overview (10/15/2024): 3.4 cm Mild episode of recurrent ma denny depressive disorder ([facility] V24) 08/20/2019 Ovarian cyst, right 03/18/2018 Overview (10/15/2024): 03/12/18 4.4 x 3.2 cm, recommend 1 year f/u Lung nodule 09/26/2017 Osteopenia 09/26/2017 Bipolar disorder ([facility] V24, [facility] V28) 11/2016 Overview (10/15/2024): Follows with Queenie Valdivia Degenerative disc disease, lumbar 07/30/2017 Overview (10/15/2024): Seen Dr Ortez and follows with [facility]- Dr Brooks HTN (hypertension) 07/30/2017 Hyperlipidemia 07/30/2017 Microhematuria 07/30/2017 Overview (10/15/2024): Follows with Dr Carter annually Immunizations Immunization Administration Dates Next Due Influenza trivalent, 0.5mL [...] HISTORICAL COLONOSCOPY OTHER SURGICAL HISTORY 11/2018 PROCEDURE: NE TRANSPEDICULAR DCMPRN SPINAL CORD 1 SEG LUMBAR; COMMENT: tlif- Dr Ortez Medical History Medical History Date Comments Hyperlipidemia 07/30/2017 DX:Hyperlipidemi a HTN (hypertension) 07/30/2017 DX:HTN (hyper tension) Major depression 07/30/2017 DX:Major depres kenia; COMMENT: Follows with Queenie Valdivia Degenerative disc disease, lumbar 07/30/2017 DX:Degenerative disc disease, lumbar; COMMENT: Seen Dr Ortez and follows with [facility] Microhematuria 07/30/2017 DX:Microhematuri a; COMMENT: [...] series) 2012 Colorectal Cancer Screening: Colonoscopy 10/07/2022 Social Influencers of Health Screening 10/07/2022 Depression Screening 10/29/2024 Falls Risk Assessment 02/10/2025 02/11/2024 Hypertension/CHF/CAD Annual BMP Blood Test 04/02/2025 04/02/2024, 04/02/2024 COVID-19 Vaccine (4 - 2024-2 6 season) 2025 09/30/2021, 01/23/2021, 12/26/2020 Influenza Vaccine (#1) 2025 , 10/03/2021 Medicare [...] * Annual BMP Blood Test (04/02/2024) Pathologist [facility] Annual BMP Blood Test abstracted [facility] Provider HEALTH MAINTENANCE Final Result * (ABNORMAL) Lipid panel (04/02/2024) Pathologist [facility] LDL/HDL Ratio 3 0 - 4 Triglycerides 183(A) 0 - 150 mg/dL Cholesterol 214(A) 0 - 200 mg/dL HDL 67 >=40 mg/dL LDL Cholesterol 111(A) 0 - 100 mg/dL Blood Venous blood specimen / Unknown [facility] Provider LAB BLOOD ORDERABLES Shannon l Result * Falls Risk Assessment (02/11/2024) Pathologist [facility] Falls Risk Assessment abstracted [facility] Provider HEALTH MAINTENANCE Final Result * [...] (World Health Organization Fracture Risk Assessment) [facility] Department of Internal Medicine recommends [...] schedule based on yandy Sanchez., [facility] November 16, 2011 for patients with [...] years. (World HealthOrganization Fracture Risk Assessment) [facility] Department of Internal Medicine recommendsusing [...] to Health Maintenance Insurance MEDICARE Care Teams Returns Clerk Relationship Specialty Start Date End Date Keira Albright MD [address] [place] [address] PCP - General Internal Medicine 09/05/21
== END 2025-07-27 15:12 | disposition home or self-care (01) ==
LOC: HO.HMCH 14:23
DX: G47.9 Sleep disorder, unspecified (principal); G30.1 Alzheimer's disease with late onset; F02.A0 Dementia in other diseases classified elsewhere, mild, without behavioral disturbance, psychotic disturbance, mood disturbance, and anxiety; J41.0 Simple chronic bronchitis; I10 Essential (primary) hypertension; R14.0 Abdominal distension (gaseous); M25.562 Pain in left knee

== ENCOUNTER → 2025-07-27 14:22 | Outpatient (BNVA) | payer MEDICARE, SELFPAY | DX: G47.9 Sleep disorder, unspecified (principal); G30.1 Alzheimer's disease with late onset; F02.A0 Dementia in other diseases classified elsewhere, mild, without behavioral disturbance, psychotic disturbance, mood disturbance, and anxiety; I10 Essential (primary) hypertension; J41.0 Simple chronic bronchitis; R14.0 Abdominal distension (gaseous); M25.562 Pain in left knee | CPT/HCPCS: 99212 ==

== ENCOUNTER 2025-08-11 15:06 | Outpatient (REF) | payer MEDICARE, SELFPAY ==
[2025-08-11 15:21] LABS: Appearance Urine Clear; Glucose Urine UA Negative (Negative); PH 6.5 (5.0-9.0); Specific Gravity - Urine 1.020 (1.005-1.025); UMIC TRIGGER UACC YES
[2025-08-11 15:51] LABS: UACC Culture Trigger YES
== END 2025-08-11 15:07 | disposition home or self-care (01) ==
LOC: HO.LNP 15:06
PROVIDERS: Visit Provider Internal Medicine
DX: R30.0 Dysuria (principal)
CPT/HCPCS: 81001; 87086

== ENCOUNTER 2025-08-20 13:52 | Outpatient (REF) | payer MEDICARE, SELFPAY ==
--- NOTE | ~2025-08-20 | XR_ITS ---
EXAMINATION: XR KNEE, LEFT CLINICAL INFORMATION: M25.562 - Pain in left knee COMPARISON: None available. TECHNIQUE: Two views of the left knee. FINDINGS: No visible acute fracture, dislocation or suspicious bony lesion. Small lateral compartment marginal spur. No significant effusion. Possible subtle medial compartment chondrocalcinosis. No abnormal soft tissue calcification. XR/XR knee LT 2V IMPRESSION: No radiographic evidence of acute osseous findings. Electronically signed by: Adolfo Urrutia MD 08/21/2025 11:14 AM EDT
--- OUTSIDE RECORDS SUMMARY | 2025-08-20 17:46 | XMS_ITS | Clinical Summary ---
Author Organization [facility] Address [address] [place] [phone] Phone Care Team Providers Care Manager Mining Name Role Phone Keira Albright MD Primary Care Provider [phone] Allergies No known active allergies Medications atorvastatin [...] Date 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/2024 Alzheimer disease ([facility] V24, [facility] V28) Cardiac murmur 02/11/2024 Cognitive impairment 08/10/2023 Lumbar spondylosis 08/10/2023 Ascending aorta dilatation ([facility] V24) 023 Overview (10/15/2024): 3.4 cm Mild episode of recurrent ma denny depressive disorder ([facility] V24) 08/20/2019 Ovarian cyst, right 03/18/2018 Overview (10/15/2024): 03/12/18 4.4 x 3.2 cm, recommend 1 year f/u Lung nodule 09/26/2017 Osteopenia 09/26/2017 Bipolar disorder ([facility] V24, [facility] V28) 11/2016 Overview (10/15/2024): Follows with Queenie Valdivia Degenerative disc disease, lumbar 07/30/2017 Overview (10/15/2024): Seen Dr Ortez and follows with [facility] Pain [facility]- Dr Brooks HTN (hypertension) 07/30/2017 [...] HISTORICAL COLONOSCOPY OTHER SURGICAL HISTORY 11/2018 PROCEDURE: IN TRANSPEDICULAR DCMPRN SPINAL CORD 1 SEG LUMBAR; COMMENT: tlif- Dr Ortez Medical History Medical History Date Comments Hyperlipidemia 07/30/2017 DX:Hyperlipidemi a HTN (hypertension) 07/30/2017 DX:HTN (hyper tension) Major depression 07/30/2017 DX:Major depres kenia; COMMENT: Follows with Queenie Valdivia Degenerative disc disease, lumbar 07/30/2017 DX:Degenerative disc disease, lumbar; COMMENT: Seen Dr Ortez and follows with [facility] Microhematuria 07/30/2017 DX:Microhematuri a; COMMENT: [...] Last Done Comments Breast Cancer Screening 1950 Colorectal Cancer Screening: Colonoscopy 1950 Zoster Vaccines (1 of 2) 2002 Social Influencers of Health Screening 10/07/2022 Depression Screening 10/29/2024 Falls Risk Assessment 02/10/2025 02/11/2024 Hypertension/CHF/CAD Annual BMP Blood Test 04/02/2025 04/02/2024, 04/02/2024 COVID-19 Vaccine (4 - 2024-2 6 season) 2025 09/30/2021, 01/23/2021, 12/26/2020 Influenza Vaccine (#1) 2025 , 10/03/2021 Medicare Annual Wellness Visit 09/08/2025 09/08/2024 RSV Immunization Adult Patients (1 - 1-dose 75+ series) 2027 DTaP,Tdap,and Td Vaccines (2 - Td or [...] BMP Blood Test (04/02/2024) Pathologist [facility] Annual BMP Blood Test abstracted [facility] Provider HEALTH MAINTENANCE Final Result * (ABNORMAL) Lipid panel (04/02/2024) Pathologist [facility] LDL/HDL Ratio 3 0 - 4 Triglycerides 183(A) 0 - 150 mg/dL Cholesterol 214(A) 0 - 200 mg/dL HDL 67 >=40 mg/dL LDL Cholesterol 111(A) 0 - 100 mg/dL Blood Venous blood specimen / Unknown [facility] Provider LAB BLOOD ORDERABLES Shannon l Result * Falls Risk Assessment (02/11/2024) Pathologist [facility] Falls Risk Assessment abstracted [facility] Provider HEALTH MAINTENANCE Final Result * [...] (World Health Organization Fracture Risk Assessment) [facility] Department of Internal Medicine recommends using [...] screening schedule based on yandy Sanchez., [facility] November 16, 2011 for patients [...] years. (World HealthOrganization Fracture Risk Assessment) [facility] Department of Internal Medicine recommendsusing National [...] to Health Maintenance Insurance MEDICARE Care Teams Manager Mining Relationship Specialty Start Date End Date Keira Albright MD [address] [place] [phone] PCP - General Internal Medicine 09/05/21
== END 2025-08-20 13:53 | disposition home or self-care (01) ==
LOC: HO.XRAY 13:52
PROVIDERS: PCP Internal Medicine
DX: M25.562 Pain in left knee (principal)
CPT/HCPCS: 73560

== ENCOUNTER → 2025-08-20 14:42 | Outpatient (BNV) | payer MEDICARE, SELFPAY | PROVIDERS: PCP Internal Medicine; Visit Provider Radiology Diagnostic Ultrasound | DX: M25.562 Pain in left knee (principal) | CPT/HCPCS: 73560 ==

== ENCOUNTER 2025-09-01 10:01 | Outpatient (AMB) | payer MEDICARE, SELFPAY ==
--- NOTE | 2025-09-01 10:09 | A.OFFPC_ITS ---
Vital Signs 09/01/25 10:10 09/01/25 10:31 Height 5 ft 4 in Weight 192 lb 4 oz BMI 33.0 BP 100/70 120/78 Blood Pressure Location Lt brachial Lt brachial Position Sitting Sitting Pulse 83 Pulse Source Pulse Oximeter Temp 97.1 F Temp Source Temporal Artery Scan Pulse Oximetry (%) 94 Oxygen Delivery Method Room Air Intake Visit Reasons: 6 week f/u Display Specialist Required: No Professor Of Communication Arts: Not Required per policy Accompanied by: Self / Same As Patient Allergies No Known Allergies Allergy (Verified 09/01/25 10:12) Medication List - Last Reviewed 09/01/25 by MELLISSA Guerin albuterol sulfate 90 mcg/actuation (Ventolin HFA) 1 inh inhalation QID PRN atorvastatin 40 mg PO DAILY bupropion HCl SR 150 mg PO QAM desvenlafaxine succinate ER 100 mg PO QAM desvenlafaxine succinate ER 25 mg PO DAILY folic acid 1 mg PO DAILY lamotrigine 150 mg PO BID lecanemab-irmb (Leqembi) 830 mg (8.3 mL) IV Q2W lisinopril 10 mg PO DAILY lorazepam 1 mg PO BEDTIME Tobacco use date assessed: 09/01/25 Fall risk assessment: No Falls in past year Last assessed Fall Risk: 09/01/25 Dental Screening Dental Screen Date: 01/26/25 HPI 6 week f/u HPI0 Details 75-year-old female with past medical his tory of hypercholesterolemia, anxiety, depression, COPD, hypertension, Alzheimer dementia last seen 06/2025 ok lottie vargas for follow up. At her last visit amlodipine was switched to Lisinopril due to side effects. Presenting for a follow-up visit for hypertension management. She reports her blood pressure has been good since switching to lisinopril from amlodipine, and notes that the leg swelling she experienced with amlodipine has resolved. The patient follows with neurology for Alzheimer's disease and reports she is doing well with treatment. She has been receiving infusions every two weeks for approximately 1.5 years and has one more treatment left. After her last infusion, she will have the option to either perform injections at home or receive infusions every four weeks. [facility] Medical History History of anxiety History of depression Annual physical exam Colon cancer screening Medicare annual wellness visit, initial Sleep disorder Pulmonary nodules Hypercholesteremia COPD (chronic obstructive pulmonary disease) Hypertension Surgical History H/O spinal fusion History of back surgery Hx of breast augmentation Hx of colonoscopy Hx of hysterectomy Family History Father Lung cancer Mother Brain aneurysm Social History Housing: House Alcohol intake: current Alcohol intake frequency: a few times a month Patient Tobacco Use Status: Former Tobacco user e-Cigarette/Vaping Use: Currently Using Second Hand Smoke Exposure: Yes service: No Current occupational status: retired Cognitive needs: No Hearing needs: No Vision needs: No Questionnaire Thrive Questionnaire Date Thrive assessed: 01/26/25 DOMINIC-7 AMB Questionnaire DOMINIC-7 Date DOMINIC - 7 assessed: 01/26/25 Source: Developed by Drs. Dionicio Alvarez, Lucía Rosado, Jairon Felix and colleagues, with an educational saulo from [employer]. Review of Systems Const Denies body aches, Denies chills, Denies fever(s), Denies headache(s) and Denies poor appetite Eyes Reports no additional complaints ENT Denies dizziness and Denies headache(s) Card Denies chest pain, Denies edema, Denies lightheadedness and Denies dyspnea Resp Denies dyspnea GI Denies abdominal pain, Denies constipation, Denies diarrhea, Denies nausea and Denies vomiting Reports no additional complaints Musc Reports no additional complaints and Denies abnormal gait Skin/Breast Reports system reviewed and no additional complaints, except as documented Neuro Denies abnormal gait, Denies dizziness and Denies headache(s) Psych Reports no additional complaints Physical exam (Primary Care) Vital Signs: Last Vital Signs Temp 97.1 F 09/01/25 10:10 Pulse 83 09/01/25 10:10 BP 120/78 09/01/25 10:31 Pulse Ox 94 09/01/25 10:10 Oxygen Delivery Method Room Air 09/01/25 10:10 BMI result Body Mass Index 33.0 Tobacco/Smoking Status: Tobacco use Status Tobacco use date assessed 09/01/25 09/01/25 10:10 Patient Tobacco Use Status Former Tobacco user 09/01/25 10:09 e-Cigarette/Vaping Use Currently Using 09/01/25 10:09 Thrive Assessment: Date of Thrive Assessment Date Thrive assessed 01/26/25 09/01/25 10:09 Const General: cooperative, healthy appearing, comfortable and no acute distress Orientation/consciousness: patient oriented x3 HENMT Head: Yes normocephalic Ears: hearing grossly normal bilaterally General nose exam: Normal external nose present Eyes General: appearance normal, both eyes and all related structures Conjunctivae: conjunctivae normal Neck Neck: Yes full ROM and Yes no lymphadenopathy Resp Effort & Inspection: normal respiratory effort Auscultation: clear to auscultation bilaterally, no crackles, no rales, no rhonchi and no wheezes Cardio Rate: regular rate Rhythm: regular rhythm Skin General skin exam: no rashes or lesions noted Neuro General: patient oriented x3 Gait exam (Neuro): Normal gait present Extrem General: Yes normal to inspection, Yes full ROM and No edema Psych Affect: normal affect Attitude: cooperative Insight: Good insight present (Psych) Judgement: Good judgement present (Psych) Coding Level of Care Code Est Pt Level 3 (45547) Diagnoses Mild late onset Alzheimer's dementia without behavioral disturbance, psychotic disturbance, mood disturbance, or anxiety G30.1; F02.A0 Alzheimer's disease onset: late onset Dementia behavioral or psychological symptom: without behavioral, psychotic, or mood disturbance or anxiety Dementia severity: mild Hypertension I10 Simple chronic bronchitis J41.0 COPD type: chronic bronchitis Chronic bronchitis type: simple Bloating R14.0 Hypercholesteremia E78.00 Assessment & Plan Assessment & Plan (1) Alzheimer dementia: Code(s): G30.9 - Alzheimer's disease, unspecified; F02.80 - Dementia in other diseases classified elsewhere, unspecified severity, without behavioral disturbance, psychotic disturbance, mood disturbance, and anxiety Category: Medical Qualifiers: Alzheimer's disease onset: late onset Dementia behavioral or psychological symptom: without behavioral, psychotic, or mood disturbance or anxiety Dementia severity: mild Qualified Code(s): G30.1 - Alzheimer's disease with late onset; F02.A0 - Dementia in other diseases classified elsewhere, mild, without behavioral disturbance, psychotic disturbance, mood disturbance, and anxiety Plan: Continue to follow with neurologist. Currently on Leqembi injections every 2 weeks and one further injection next week. She is considering additional treatment which will be discussed with her neurologist. (2) Hypertension: Code(s): I10 - Essential (primary) hypertension Category: Medical Plan: Continue on current blood pressure medication. Avoid salt intake and encourage healthy diet and regular exercise. Her leg swelling has improved since discontinuing Amlodipine and she feels good on the Lisinopril. (3) COPD (chronic obstructive pulmonary disease): Code(s): J44.9 - Chronic obstructive pulmonary disease, unspecified Category: Medical Qualifiers: COPD type: chronic bronchitis Chronic bronchitis type: simple Qualified Code(s): J41.0 - Simple chronic bronchitis Plan: Continue with albuterol as needed. (4) Bloating: Code(s): R14.0 - Abdominal distension (gaseous) Category: Medical Plan: Recommend low FODMAP diet and simethicone OTC. She will also continue to follow up with gastro. She has appointment coming up in September. (5) Hypercholesteremia: Code(s): E78.00 - Pure hypercholesterolemia, unspecified Category: Medical Plan: Avoid foods that are high in cholesterol such as red meat, fried foods, eggs and baked goods. Triglyceride goal of less than 150 and LDL goal of less than 130. Plan This note was constructed using voice recognition software. While every effort has been made to ensure accuracy and blasting gang miner, still areas may have been included sometimes these areas may affect the content or meeting of the given symptoms. Total time spent caring for the patient today was 20 minutes. This includes time spent before the visit reviewing the chart, time spent during the visit, and time spent after the visit and documentation.Patient was informed and verbally consented to the use of an ambient scribe for clinic note documentation during this visit.
[2025-09-01 10:10] VITALS: BP 100/70; PULSE 83; TEMP 36.2; O2SAT 94; BMI 33.0
[2025-09-01 10:31] VITALS: BP 120/78
== END 2025-09-01 10:38 | disposition home or self-care (01) ==
LOC: HO.HMCH 10:01
PROVIDERS: PCP Internal Medicine
DX: G30.1 Alzheimer's disease with late onset (principal); F02.A0 Dementia in other diseases classified elsewhere, mild, without behavioral disturbance, psychotic disturbance, mood disturbance, and anxiety; I10 Essential (primary) hypertension; J41.0 Simple chronic bronchitis; R14.0 Abdominal distension (gaseous); E78.00 Pure hypercholesterolemia, unspecified

== ENCOUNTER → 2025-09-01 10:01 | Outpatient (BNVA) | payer MEDICARE, SELFPAY | PROVIDERS: PCP Internal Medicine | DX: G30.1 Alzheimer's disease with late onset (principal); F02.A0 Dementia in other diseases classified elsewhere, mild, without behavioral disturbance, psychotic disturbance, mood disturbance, and anxiety; I10 Essential (primary) hypertension; J41.0 Simple chronic bronchitis; R14.0 Abdominal distension (gaseous); E78.00 Pure hypercholesterolemia, unspecified | CPT/HCPCS: 99212 ==

== ENCOUNTER 2025-09-10 14:54 | Outpatient (AMB) | payer MEDICARE, SELFPAY ==
[2025-09-10 14:55] VITALS: BP 138/82; PULSE 90; O2SAT 98; BMI 33.2
--- NOTE | 2025-09-10 14:55 | MHC.OFFVIS ---
Vital Signs 09/10/25 14:55 Height 5 ft 4 in Weight 193 lb 6 oz BMI 33.2 BP 138/82 Blood Pressure Location Rt brachial Pulse 90 Pulse Source Pulse Oximeter Pulse Oximetry (%) 98 Oxygen Delivery Method Room Air Intake Visit Reasons: follow up (CONF.) Intake Note: Follow up Alzheimer dementia and sleep Disorders Senior Product Development Scientist Required: No Accompanied by: Spouse Allergies No Known Allergies Allergy (Verified 09/10/25 14:55) Medication List - Last Reconciled 09/10/25 by Мария Perdomo MD albuterol sulfate 90 mcg/actuation (Ventolin HFA) 1 inh inhalation QID PRN atorvastatin 40 mg PO DAILY bupropion HCl SR 150 mg PO QAM desvenlafaxine succinate ER 100 mg PO QAM desvenlafaxine succinate ER 25 mg PO DAILY folic acid 1 mg PO DAILY lamotrigine 150 mg PO BID lecanemab-irmb (Leqembi) 830 mg (8.3 mL) IV Q2W lisinopril 10 mg PO DAILY lorazepam 1 mg PO BEDTIME HPI Comments Details: 74y/o female with ALzheimers dementia in Nov 2023 . She had LP positive for AD Her recent AMyvid scan was positive. SHe was started on Leqembi January 2024 and is supply assistant for infusion tomorrow . No change . denies any side effects .she notices mild worsening of word retrieval issues. History from initial visit- During her PCP visit in Jul 2023 - she had some issues with cognitive testing. SHe was referred to Dr. Leung - MRI showed some Global volume loss with temperoparietal predominance. He did LP and started her on leqembi. Her MRI brain has been stable with no evidence of ARIA. Her only issues she has is occasional word retrieval issues. she has h/o depression and anxiety? Bipolar - stable on medications. [facility] Medical History History of anxiety History of depression Annual physical exam Colon cancer screening Medicare annual wellness visit, initial Sleep disorder Pulmonary nodules Hypercholesteremia COPD (chronic obstructive pulmonary disease) Hypertension Surgical History H/O spinal fusion History of back surgery Hx of breast augmentation Hx of colonoscopy Hx of hysterectomy Family History Father Lung cancer Mother Brain aneurysm Social History Housing: House Alcohol intake: current Alcohol intake frequency: a few times a month Patient Tobacco Use Status: Former Tobacco user e-Cigarette/Vaping Use: Currently Using Second Hand Smoke Exposure: Yes service: No Current occupational status: retired Cognitive needs: No Hearing needs: No Vision needs: No Physical Exam Vital Signs: Last Vital Signs Pulse 90 09/10/25 14:55 BP 138/82 09/10/25 14:55 Pulse Ox 98 09/10/25 14:55 Oxygen Delivery Method Room Air 09/10/25 14:55 BMI result Body Mass Index 33.2 Const General: cooperative, healthy appearing, no acute distress and anxious Nutritional Appearance: obese Orientation/consciousness: oriented to person, oriented to place and oriented to time Eyes Pupils: Equal, round and reactive pupils present Neuro Other: antalgic gait General: oriented to person, oriented to place, oriented to time, moves all extremities and no focal motor deficits Cranial nerves: Yes Facial sensation intact/muscles of mastication intact, Yes Equal, round and reactive pupils present, Yes Bilaterally intact EOM present, Yes Nystagmus not present, Yes Normal facial strength present, Yes Midline tongue present and Yes Ability to bilaterally elevate shoulders present Cognition (Neuro): abnormal cognition Gait exam (Neuro): Antalgic gait present Coordination: [id number] test normal Orientation What is the (year) (season) (date) (day) (month)?: year, season, date, day and month Where are we (state) (county) (town or city) (hospital) (floor)?: state, county, town or city, hospital/clinic and floor Registration Name of 3 unrelated objects clearly and slowly, then ask patient to repeat all 3 of them. (1st repeat determines score. Make sure they can repeat all three): object 1, object 2 and object 3 Attention & Calculation (CHOOSE ONE) Spell WORLD backwards (DLROW): 5 letters Recall Ask patient to repeat the 3 items from question #3.: object 1 Language Show patient a wristwatch & ask what it is. Repeat for pencil.: watch and pencil Ask the patient to repeat the phrase 'No ifs, ands, or buts' after you.: correct Ask the patient to 'take a piece of paper with their right hand' 'fold paper in half' 'place paper on floor': take paper in right hand and fold paper in half Print the sentence 'CLOSE YOUR EYES' on a piece. If patient actually closes eyes then score.: followed written direction Give patient a blank piece of paper & ask to write a sentence. Score if it contains a noun & verb.: sentence contains subject and verb Ask patient to copy figure of intersecting pentagons exactly. Score if all 10 angles & 2 intersects are included.: all 10 angles present & 2 are intersected Score Score: 27 Assessment & Plan Assessment & Plan (1) Alzheimer dementia: Code(s): G30.9 - Alzheimer's disease, unspecified; F02.80 - Dementia in other diseases classified elsewhere, unspecified severity, without behavioral disturbance, psychotic disturbance, mood disturbance, and anxiety Category: Medical Qualifiers: Alzheimer's disease onset: late onset Dementia behavioral or psychological symptom: without behavioral, psychotic, or mood disturbance or anxiety Dementia severity: mild Qualified Code(s): G30.1 - Alzheimer's disease with late onset; F02.A0 - Dementia in other diseases classified elsewhere, mild, without behavioral disturbance, psychotic disturbance, mood disturbance, and anxiety (2) Sleep disorder: Comment: snoring, hypersomnia Code(s): G47.9 - Sleep disorder, unspecified Category: Medical Plan Continue LEQEMBI infusions - completed 18 mths - will decrease dose to every 4 weeks or swicth to SQ MRI Brain for ARIA Discussed about engaging in cognitively stimulating activities Home sleep test was inconclusive Orders: Orders MR head/brain wo con 09/10/25 F02.A0 - Dementia in other diseases classified elsewhere, mild, without behavioral disturbance, psychotic disturbance, mood disturbance, and anxiety, G30.1 - Alzheimer's disease with late onset Coding Level of Care Code Est Pt Level 4 (63412) Diagnoses Mild late onset Alzheimer's dementia without behavioral disturbance, psychotic disturbance, mood disturbance, or anxiety G30.1; F02.A0 Alzheimer's disease onset: late onset Dementia behavioral or psychological symptom: without behavioral, psychotic, or mood disturbance or anxiety Dementia severity: mild Sleep disorder G47.9
--- OUTSIDE RECORDS SUMMARY | 2025-09-10 18:12 | XMS_ITS | Clinical Summary ---
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 Alzheimer disease ([facility] V24, [facility] V28) Cardiac murmur 02/11/2024 Cognitive impairment 08/10/2023 Lumbar spondylosis 08/10/2023 Ascending aorta dilatation ([facility] V24) 023 Overview (10/15/2024): 3.4 cm Mild episode of recurrent ma denny depressive disorder ([facility] V24) 08/20/2019 Ovarian cyst, right 03/18/2018 Overview (10/15/2024): 03/12/18 4.4 x 3.2 cm, recommend 1 year f/u Lung nodule 09/26/2017 Osteopenia 09/26/2017 Bipolar disorder ([facility] V24, [facility] V28) 11/2016 Overview (10/15/2024): Follows with Queenie Valdivia Degenerative disc disease, lumbar 07/30/2017 Overview (10/15/2024): Seen Dr Ortez and follows with [facility]- Dr Brooks HTN (hypertension) [...] COMMENT: Seen Dr Ortez and follows with [facility] Microhematuria 07/30/2017 DX:Microhematuri a; [...] Years Used Date Smoking Tobacco: Former Cigarettes 1 Q uit: 10/29/2010 Smokeless Tobacco: Never Alcohol [...] Results * Annual BMP Blood Test (04/02/2024) Annual BMP Blood Test abstracted [facility] Provider HEALTH MAINTENANCE Final Result * (ABNORMAL) Lipid panel (04/02/2024) Pathologist [facility] LDL/HDL Ratio 3 0 - 4 Triglycerides 183(A) 0 - 150 mg/dL Cholesterol 214(A) 0 - 200 mg/dL HDL 67 >=40 mg/dL LDL Cholesterol 111(A) 0 - 100 mg/dL Blood Venous blood specimen / Unknown [facility] Provider LAB BLOOD ORDERABLES Shannon l Result * Falls Risk Assessment (02/11/2024) Pathologist [facility] Falls Risk Assessment abstracted [facility] Provider HEALTH MAINTENANCE Final Result * [...] (World Health Organization Fracture Risk Assessment) [facility] Department of Internal Medicine [...] alternative screening schedule based on yandy Sanchez., [facility] November 16, 2011 for patients with osteopenia [...] years. (World HealthOrganization Fracture Risk Assessment) [facility] Department of Internal Medicine [...] to Health Maintenance Insurance MEDICARE Care Teams Electric Range Assembler Relationship Specialty Start Date End Date Keira Albright MD [address] [place] [address] PCP - General Internal Medicine 09/05/21
== END 2025-09-10 15:25 | disposition home or self-care (01) ==
LOC: HO.HSMS 14:54
PROVIDERS: Visit Provider Psychiatry & Neurology Neurology
DX: G30.1 Alzheimer's disease with late onset (principal); F02.A0 Dementia in other diseases classified elsewhere, mild, without behavioral disturbance, psychotic disturbance, mood disturbance, and anxiety; G47.9 Sleep disorder, unspecified
CPT/HCPCS: 99214

== ENCOUNTER → 2025-09-10 14:54 | Outpatient (BNVA) | payer MEDICARE, SELFPAY | PROVIDERS: Visit Provider Psychiatry & Neurology Neurology | DX: G30.1 Alzheimer's disease with late onset (principal); F02.A0 Dementia in other diseases classified elsewhere, mild, without behavioral disturbance, psychotic disturbance, mood disturbance, and anxiety; G47.9 Sleep disorder, unspecified | CPT/HCPCS: 99212 ==

== ENCOUNTER 2025-10-16 11:22 | Day surgery (SDC) | payer MEDICARE, SELFPAY ==
--- NOTE | 2025-10-13 10:50 | HO.ANESPROP2 ---
Documented by User: Kyung Calvert NP 10/13/25 10:51 HPI - Anesthesia Eval Consult details Narrative: 75yo F for Colonoscopy Alzheimer's - on infusion tx and doing well. Follows [facility] neuro PMFSH Active Problems Active Problems: All Active Problems Left knee pain (Acute) Bloating (Acute) Pre-op examination (Acute) Sleep disorder (Acute) Pulmonary nodules (Acute) Alzheimer dementia (Acute) Swelling of both lower extremities (Acute) Hypertension (Acute) COPD (chronic obstructive pulmonary disease) (Acute) Hypercholesteremia (Acute) Past Medical History Medical History History of anxiety History of depression Annual physical exam Colon cancer screening Medicare annual wellness visit, initial Sleep disorder Pulmonary nodules Hypercholesteremia COPD (chronic obstructive pulmonary disease) Hypertension Family History Family History Father Lung cancer Mother Brain aneurysm Surgical History Surgical History H/O spinal fusion History of back surgery Hx of breast augmentation Hx of colonoscopy Hx of hysterectomy Social History Social History Housing: House Alcohol intake: current Alcohol intake frequency: a few times a month Patient Tobacco Use Status: Former Tobacco user e-Cigarette/Vaping Use: Currently Using Second Hand Smoke Exposure: Yes Use of substances other than those prescribed or required for medical reasons: No Advance Directives: No Advance Directives Information Provided: Yes service: No Current occupational status: retired Cognitive needs: No Hearing needs: No Vision needs: No Meds Allergies Allergy/AdvReac Type Severity Reaction Status Date / Time No Known Allergies Allergy Verified 09/10/25 14:55 Home Medications ?Medication ?Instructions ?Recorded ?Confirmed ?Last Taken ?Type bupropion HCl 150 mg tablet,12 hr 150 mg PO QAM 12/10/23 10/16/25 Unknown History sustained-release desvenlafaxine succinate 100 mg 100 mg PO QAM 12/10/23 10/16/25 Unknown History tablet,extended release 24 hr desvenlafaxine succinate 25 mg 25 mg PO DAILY 12/10/23 10/16/25 Unknown History tablet,extended release 24 hr lamotrigine 150 mg tablet 150 mg PO BID 12/10/23 10/16/25 Unknown History lorazepam 1 mg tablet 1 mg PO BEDTIME 12/10/23 10/16/25 Unknown History Assessment and Plan Assessment Anesthesia Assessment: Chart Reviewed Documented by User: Emelia Pathak MD 10/16/25 12:12 [facility] Past Medical History Medical History History of anxiety History of depression Annual physical exam Colon cancer screening Medicare annual wellness visit, initial Sleep disorder Pulmonary nodules Hypercholesteremia COPD (chronic obstructive pulmonary disease) Hypertension Family History Family History Father Lung cancer Mother Brain aneurysm Family history of problems with anesthesia: No Surgical History Surgical History H/O spinal fusion History of back surgery Hx of breast augmentation Hx of colonoscopy Hx of hysterectomy History of Problems with Anesthesia: No Social History Social History Housing: House Alcohol intake: current Alcohol intake frequency: a few times a month Patient Tobacco Use Status: Former Tobacco user e-Cigarette/Vaping Use: Currently Using Second Hand Smoke Exposure: Yes Use of substances other than those prescribed or required for medical reasons: No Advance Directives: No Advance Directives Information Provided: Yes service: No Current occupational status: retired Cognitive needs: No Hearing needs: No Vision needs: No Meds Allergies Allergy/AdvReac Type Severity Reaction Status Date / Time No Known Allergies Allergy Verified 09/10/25 14:55 Home Medications ?Medication ?Instructions ?Recorded ?Confirmed ?Last Taken ?Type bupropion HCl 150 mg tablet,12 hr 150 mg PO QAM 02/12/24 12/19/25 Unknown History sustained-release desvenlafaxine succinate 100 mg 100 mg PO QAM 12/10/23 10/16/25 Unknown History tablet,extended release 24 hr desvenlafaxine succinate 25 mg 25 mg PO DAILY 12/10/23 10/16/25 Unknown History tablet,extended release 24 hr lamotrigine 150 mg tablet 150 mg PO BID 12/10/23 10/16/25 Unknown History lorazepam 1 mg tablet 1 mg PO BEDTIME 12/10/23 10/16/25 Unknown History Exam Airway Mallampati Class: III TM Dist: >3cm Neck ROM: Full Heart: rrr Lungs: cta Assessment and Plan Assessment Anesthesia Assessment: Anesthesia Plan Discussed Final Anesthetic Review Family History of Problems with Anesthesia: No History of Problems with Anesthesia: No NPO: Yes ASA Class: III Final Preanesthetic Review: No Changes in Pt Med Stat, Meds/Allgs Chart Reviewed, Consent Obtained/Reviewed and Anes Risks/Benef Reviewed Patient Risk: Intermediate Procedure Risk: Low Anesthetic Plan Anesthetic Plan: MAC: Disposition: Standard PACU
[2025-10-16 11:40] VITALS: BMI 32.0
[2025-10-16] MEDS: Lactated Ringers 1,000 ML 100 ML IVCONT (12:02)
[2025-10-16 12:03] VITALS: BP 141/94; PULSE 102; RESP 16; TEMP 36.1; O2SAT 95
--- NOTE | 2025-10-16 12:14 | MHC.SHP ---
Pre-Procedural Eval Section A - 24 Hr Update-Section A only Date of Service: 10/16/25 Section B - Complete if H&P > 30 days Chief Complaint: screening Relevant Family History (Specify if Yes): No Relevant Social History: Tobacco Use (Former smoker) Present Medications: see Short Stay Collaborative assessment Medical History: Significant History (COPD Hypertension High cholesterol Alzheimer's dementia Depression with anxiety ) History of Previous Operations: Relevant previous surgery/procedure and date(s) (H/O spinal fusion History of back surgery Hx of breast augmentation Hx of colonoscopy Hx of hysterectomy) Allergies: Allergies Allergy/AdvReac Type Severity Reaction Status Date / Time No Known Allergies Allergy Verified 09/10/25 14:55 Review of Systems Sugical H&P ROS: Negative: Constitution, Cardiovascular and Respiratory and Yes, Specify: Gastrointestinal (change in bowel habits) Exam Surgical H&P Exam: Normal: Heart, Normal: Lungs, Normal: Extremities and Normal: Abdomen Plan Diagnosis/Plan: Unchanged I have reviewed the history and physical and performed a pertinent physical examination on my patient. No changes have occurred unless specified. Time Spent With Patient Time: Total time managing care of this patient today ____ minutes.
--- NOTE | 2025-10-16 13:51 | P.OPN-COLO_ITS ---
Colonoscopy Operative Note Operative Note Date of Service: 10/16/25 Narrative: COLONOSCOPY TILL CECUM WITH BIOPSY AND SNARE POLYPECTOMY Pre-op diagnosis: Colon cancer screening Post-op diagnosis:? Colon polyps, Diverticulosis, hemorrhoids Endoscopist:? Alec Welch MD Anesthesia:?MAC Consent: Indications for the procedure and potential complications of bleeding, perforation, reaction to medications and missed diagnosis were discussed with the patient and informed consent was obtained. Instrument: Olympus PCF H 190 L variable stiffness pediatric olonoscope Monitoring: Vital signs and clinical assessment, intermittent blood pressure monitoring, continuous EKG monitoring, Pulse oximetry and Carbon Dioxide monitoring were done throughout the procedure. Please see anesthesia flowsheet. Colon withdrawl time was 19 minutes. Procedure: The patient was placed in the left lateral decubitis position and pre-procedure medications were administered. After a digital rectal examination of the ano-rectum, the video colonoscope was inserted into the rectum and advanced through the colon to the cecum. The colonoscope was slowly withdrawn in a retrograde panoramic fashion and the colon mucosa was carefully examined including a retroflexed view of the rectum. Findings and interventions are described below. Procedure Difficulty: Colon was long and tortuous and there was recurrent loop formation. Patient was placed in the supine position and LLQ pressure was applied to intubate the ascending colon Findings: Terminal Ileum: Not evaluated Cecum: Normal Ascending Colon: A 2-3 mm sessile polyp in the proximal ascending colon - removed with a cold biopsy Transverse Colon: Normal Descending Colon: Moderate diverticulosis Sigmoid Colon: Moderate diverticulosis Rectum: A few 8 to 10 mm diminutive appearing polyps in the recto-sigmoid colon - two polyps were removed with a hot snare Ano-rectum: Small internal hemorrhoids Colon preparation: Good after copious irrigation. [place] Bowel Preparation Scale Right colon; 2 ransverse colon: 2 Left colon; 2 (0 = Unprepared colon segment with mucosa not seen due to solid stool that cannot be cleared. 1 = Portion of mucosa of the colon segment seen, but other areas of the colon segment not well seen due to staining, residual stool and/or opaque liquid. 2 = Minor amount of residual staining, small fragments of stool and/or opaque liquid, but mucosa of colon segment seen well. 3 = Entire mucosa of colon segment seen well with no residual staining, small fragments of stool or opaque liquid) Impression and Post Procedure Diagnosis: Colonoscopy Findings: Three small to medium-sized polyps were removed. Moderate diverticulosis seen in the sigmoid colon Small hemorrhoids on retroflexed exam. Plan: I will send a letter with biopsy results. Repeat Colonoscopy in 3-5 years if polyps are adenomatous and 10 year if polyps are hyperplastic. (Adult colonoscope and Miralax split prep + Dulcolax 10 mg daily starting 5 days prior to next colonoscopy appointment) Above findings were reviewed with the patient and relevant handouts were given and the discharge area.
[2025-10-16 13:54] VITALS: BP 94/56; PULSE 82; RESP 16; TEMP 36.5; O2SAT 95
[2025-10-16 14:09] VITALS: BP 112/78; PULSE 73; RESP 15; TEMP 36.5; O2SAT 97
== END 2025-10-16 14:38 | disposition home or self-care (01) ==
PROVIDERS: PCP Internal Medicine; Visit Provider Internal Medicine Gastroenterology
PROC: 0DJD8ZZ Inspection of Lower Intestinal Tract, Via Natural or Artificial Opening Endoscopic (ICD-10-PCS; CPT 45378; principal; 2025-10-16 13:00)
DX: Z12.11 Encounter for screening for malignant neoplasm of colon (principal); K57.30 Diverticulosis of large intestine without perforation or abscess without bleeding; K64.8 Other hemorrhoids; K63.5 Polyp of colon
CPT/HCPCS: 45380; 45385; 88305; J2704

== ENCOUNTER → 2025-10-16 11:22 | Outpatient (BNV) | payer MEDICARE, SELFPAY | PROVIDERS: PCP Internal Medicine; Visit Provider Internal Medicine Gastroenterology | DX: Z12.11 Encounter for screening for malignant neoplasm of colon (principal); D12.2 Benign neoplasm of ascending colon; K57.90 Diverticulosis of intestine, part unspecified, without perforation or abscess without bleeding; K64.8 Other hemorrhoids; D12.8 Benign neoplasm of rectum | CPT/HCPCS: 45380; 45385 ==

== ENCOUNTER 2025-10-20 15:32 | Outpatient (AMB) | payer MEDICARE, SELFPAY ==
[2025-10-20 15:34] VITALS: BP 134/88; PULSE 104; O2SAT 94; BMI 32.7
--- NOTE | 2025-10-20 15:34 | MHC.OFFVIS ---
Vital Signs 10/20/25 15:34 Height 5 ft 4 in Weight 190 lb 11.198 oz BMI 32.7 BP 134/88 Blood Pressure Location Lt brachial Position Sitting Pulse 104 H Pulse Source Pulse Oximeter Pulse Oximetry (%) 94 Oxygen Delivery Method Room Air Intake Visit Reasons: copd Project Management Specialist Required: No Tank Wagon Driver: Tank Wagon Driver offered & declined Accompanied by: Self / Same As Patient Allergies No Known Allergies Allergy (Verified 10/20/25 15:35) HPI Comments Details: The patient is year woman with a known history of COPD in addition to underlying pulmonary nodules here to establish care. The patient states that she was tobacco dependent until about 12-15 years ago when she quit altogether. She has been smoke-free since then. She was then diagnosed with COPD. She was being evaluated by [facility]. She did undergo pulmonary function studies and she was given a rescue inhaler. She does have a Ventolin inhaler that she uses as needed. But typically less than 2 times a week. She has never been on a maintenance inhaler. Respiratory cano she is doing okay she denies any respiratory limitations. She did undergo CT scan of the chest sometime 06/17/2023 and this was at [facility]. I did review the report. It appears that she has to pulmonary nodules 1 that is subsolid nature measuring 4 mm and 1 that is 2 mm in size. The patient also carries a significant past medical history where her father of lung cancer in his mid 50s. Therefore, it will be very important to follow-up with a repeat CT scan to make sure those pulmonary nodules have not worsened. As far as respiratory complaints she denies any significant coughing or shortness breath sometimes she has back discomfort but is difficult to say if is from her lungs on her back because she has had significant back issues. In addition to that she is getting a new infusion for her relatively new diagnosis of Alzheimer's dementia. 10/20/2025 the patient is here for pulmonary follow-up visit. Overall the patient has been doing well. She has not had to use her rescue inhaler. Overall she is feels well denies any respiratory limitations. The patient also had a CT scan of the chest back in October 2024 which was compared to a CAT scan from 2022 from [facility]. She has stable pulmonary nodules. In addition to that she has a stable adenoma. No need for any repeat imaging studies at this time. She does have issues with her memory and currently working with Neurology. She did have a home sleep study back in December 2024 demonstrating significant hypoxia and very mild sleep apnea. At this point she is going to have a repeat in-lab sleep study. That is scheduled through neurology. From a pulmonary standpoint she can use the inhaler as needed. The patient is not interested in any vaccines right now. Will follow-up in a year's time if any issues arise she can always call for further recommendations. [facility] Medical History History of anxiety History of depression Annual physical exam Colon cancer screening Medicare annual wellness visit, initial Sleep disorder Pulmonary nodules Hypercholesteremia COPD (chronic obstructive pulmonary disease) Hypertension Surgical History H/O spinal fusion History of back surgery Hx of breast augmentation Hx of colonoscopy Hx of hysterectomy Family History Father Lung cancer Mother Brain aneurysm Social History Housing: House Alcohol intake: current Alcohol intake frequency: a few times a month Patient Tobacco Use Status: Former Tobacco user e-Cigarette/Vaping Use: Currently Using Second Hand Smoke Exposure: Yes service: No Current occupational status: retired Cognitive needs: No Hearing needs: No Vision needs: No Review of Systems Const Denies body aches, Denies fatigue, Denies fever(s), Denies frequent falls and Denies weakness Eyes Reports no additional complaints and Denies change in vision ENT Denies nasal congestion Card Denies chest pain Resp Reports cough GI Denies abdominal pain, Denies constipation, Denies dyspepsia, Denies diarrhea, Denies nausea and Denies vomiting Musc Details: Bilateral ankle and foot swelling Denies back pain Skin/Breast Reports system reviewed and no additional complaints, except as documented Neuro Denies frequent falls and Denies weakness Psych Reports no additional complaints Endo Denies fatigue Physical Exam Vital Signs: Last Vital Signs Pulse 104 H 10/20/25 15:34 BP 134/88 10/20/25 15:34 Pulse Ox 94 10/20/25 15:34 Oxygen Delivery Method Room Air 10/20/25 15:34 BMI result Body Mass Index 32.7 Const General: healthy appearing Orientation/consciousness: oriented to person, oriented to place and oriented to time HEENT Head: Yes normocephalic Eyes Pupils: Equal, round and reactive pupils present Neck Neck: Yes supple Chest Chest palpation & inspection: normal inspection of the chest Resp Effort & Inspection: normal respiratory effort Auscultation: clear to auscultation bilaterally and no wheezes Cardio Heart sounds: S1 normal heart sound present and S2 normal heart sound present GI Palpation (GI): Soft to palpation Skin General skin exam: no rashes or lesions noted Neuro Other: antalgic gait General: oriented to person, oriented to place, oriented to time, moves all extremities and no focal motor deficits Cranial nerves: Yes Facial sensation intact/muscles of mastication intact, Yes Equal, round and reactive pupils present, Yes Bilaterally intact EOM present, Yes Nystagmus not present, Yes Normal facial strength present, Yes Midline tongue present and Yes Ability to bilaterally elevate shoulders present Cognition (Neuro): abnormal cognition Gait exam (Neuro): Antalgic gait present Coordination: [id number] test normal Extrem General: Yes no clubbing, cyanosis or edema Assessment & Plan Assessment & Plan (1) COPD (chronic obstructive pulmonary disease): Code(s): J44.9 - Chronic obstructive pulmonary disease, unspecified Category: Medical Qualifiers: COPD type: chronic bronchitis Chronic bronchitis type: simple Qualified Code(s): J41.0 - Simple chronic bronchitis (2) Pulmonary nodules: Code(s): R91.8 - Other nonspecific abnormal finding of lung field Category: Medical Plan CECY as needed No additional serial CT chest with stable nodules 2022 to 2024 F/U 12 months Coding Level of Care Code Est Pt Level 4 (08515) Diagnoses Simple chronic bronchitis J41.0 COPD type: chronic bronchitis Chronic bronchitis type: simple Pulmonary nodules R91.8 Time Spent (min) 16
--- OUTSIDE RECORDS SUMMARY | 2025-10-20 16:39 | XMS_ITS | Clinical Summary ---
Author Organization [facility] Address [address] [place] [id number] Phone Care Team Providers Care Camp Recreation Specialist Name Role Phone Keira Albright MD Primary Care Provider [phone] Allergies No known active allergies Medications atorvastatin [...] (10/15/2024): Seen Dr Ortez and follows with [facility] Pain mangement- Dr Brooks HTN (hypertension) [...] HISTORICAL COLONOSCOPY OTHER SURGICAL HISTORY 11/2018 PROCEDURE: ND TRANSPEDICULAR DCMPRN SPINAL CORD 1 SEG LUMBAR; COMMENT: tlif- Dr Ortez Medical History Medical History Date Comments Hyperlipidemia 07/30/2017 DX:Hyperlipidemi a HTN (hypertension) 07/30/2017 DX:HTN (hyper tension) Major depression 07/30/2017 DX:Major depres kenia; COMMENT: Follows with [facility] Castelinous Degenerative disc disease, lumbar 07/30/2017 DX:Degenerative disc disease, lumbar; COMMENT: Seen Dr Ortez and follows with [facility] Pain mangement Microhematuria 07/30/2017 DX:Microhematuri a; [...] on file Sexual Orientation Not on file Last Filed Vital Signs Vital Sign Reading [...] Screening 1950 Colorectal Cancer Screening: Colonoscopy 1950 Drug Screen 1950 Non-Opioid Controlled Substance Agreement 1950 Zoster Vaccines (1 of 2) 2002 [...] Procedure Name Priority Date/Time Associated Diagnosis Comments HM ANNUAL BMP BLOOD TEST Routine 04/02/2024 LIPID PANEL Routine 04/02/2024 FALLS RISK ASSESSMENT Routine 02/11/2024 DXA BONE DENSITY STUDY 1+ SITS AXIAL SKEL Routine 10/04/2022 11:46 AM EST Other specified disorders of bone density and structure, unspecified site HEPATITIS C SCREENING Routine 07/30/2017 from Last 3 Months or Most Recently Relevant to Health Maintenance Results * Annual BMP Blood Test (04/02/2024) Pathologist [facility] Annual BMP Blood Test abstracted [facility] Provider HEALTH MAINTENANCE Final Result * (ABNORMAL) Lipid panel (04/02/2024) [facility] LDL/HDL Ratio 3 0 - 4 Triglycerides 183(A) 0 - 150 mg/dL Cholesterol 214(A) 0 - 200 mg/dL HDL 67 >=40 mg/dL LDL Cholesterol 111(A) 0 - 100 mg/dL Blood Venous blood specimen / Unknown Historical Provider LAB BLOOD ORDERABLES Shannon l Result * Falls Risk Assessment (02/11/2024) [facility] Falls Risk Assessment abstracted [facility] Provider HEALTH MAINTENANCE Final Result * DXA [...] (World Health Organization Fracture Risk Assessment) [facility] Department of Internal Medicine recommends [...] years. (World HealthOrganization Fracture Risk Assessment) [facility] Department of Internal Medicine recommendsusing [...] to Health Maintenance Insurance MEDICARE Care Teams Camp Recreation Specialist Relationship Specialty Start Date End Date Keira Albright MD [address] [place] [id number] PCP - General Internal Medicine 09/05/21
== END 2025-10-20 15:53 | disposition home or self-care (01) ==
LOC: HO.HPS 15:32
PROVIDERS: PCP Nurse Practitioner Family; Visit Provider Hospitalist
DX: J41.0 Simple chronic bronchitis (principal); R91.8 Other nonspecific abnormal finding of lung field
CPT/HCPCS: 99214

== ENCOUNTER → 2025-10-20 16:12 | Outpatient (BNV) | payer MEDICARE, SELFPAY | PROVIDERS: PCP Internal Medicine; Visit Provider Radiology Body Imaging | DX: G30.1 Alzheimer's disease with late onset (principal) | CPT/HCPCS: 70551 ==

== ENCOUNTER 2025-10-20 16:17 | Outpatient (REF) | payer MEDICARE, SELFPAY ==
--- NOTE | ~2025-10-20 | MR_ITS ---
EXAMINATION: MR BRAIN WITHOUT CONTRAST CLINICAL INFORMATION: G30.1 - Alzheimer's disease with late onset on anti amyloid therapy - to r/o ARIA COMPARISON: Brain MRI on February 26, 2025 TECHNIQUE: MRI of the brain was obtained using routine sequences without contrast. FINDINGS: Brain parenchyma: No shift of midline structures. No evidence of acute infarct or mass lesion. No evidence of parenchymal edema or sulcal effusion. A new focus of susceptibility artifact identified in the right frontal lobe (10:24/60) could represent area of microhemorrhage. Scattered small white matter lesions as well as minimal confluent periventricular white matter changes are unchanged from February 2025. 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 Left vertebral artery creates focal impression in the left medulla. Ventricles/extra-axial spaces. Similar prominence of the ventricles and extra-axial CSF spaces representing brain volume loss. No hydrocephalus. No extra-axial fluid collection. Extracranial structures: Arterial flow voids in the skull base appear preserved. Minimal mucosal thickening of the paranasal sinuses. Bilateral mastoid air cells are clear. MR/MR head/brain wo con IMPRESSION: In comparison to previous examination from February 26, 2025: 1. Finding suggestive a new focus of microhemorrhage in the right frontal lobe, could represent early amyloid related abnormality. Recommend attention to this area in the next follow-up. 2. No parenchymal edema or sulcal effusion. 3. Similar brain volume loss. Electronically signed by: Yesy Wong MD 10/21/2025 07:41 AM EST
== END 2025-10-20 16:18 ==
LOC: HO.MRI 16:17
PROVIDERS: PCP Internal Medicine; Visit Provider Psychiatry & Neurology Neurology
DX: G30.1 Alzheimer's disease with late onset (principal); F02.A0 Dementia in other diseases classified elsewhere, mild, without behavioral disturbance, psychotic disturbance, mood disturbance, and anxiety
CPT/HCPCS: 70551